=== PATIENT | male | born 1950 | race Caucasian/White ===

== ENCOUNTER 2019-06-21 05:36 | Inpatient (IN) | payer MEDICARE ==
[~2019-06-21] VITALS: Ht 182.9 cm; Wt 62.2 kg
[2019-06-21 07:00] LABS: Urine Amorphous Crystal MOD /hpf (None Seen); Urine Bacteria NONE SEEN /hpf (None Seen); Urine Blood Negative /uL (Negative); Urine Specific Gravity 1.019 (1.001-1.035); Urine WBC 1 /hpf (0 - 3)
[2019-06-21 07:19] LABS: Basophils # (auto) 0 10 ^3/uL (0-0.2); Basophils % (auto) 0.3 % (0.0-2.0); Eosinophils # (auto) 0.1 10 ^3/uL (0-0.8); Eosinophils % (auto) 1.3 % (0.0-7.0); Hematocrit 38.7 % (41.0-53.0); Hemoglobin 13.1 g/dL (13.5-17.5); Lymphocytes # (auto) 0.7 10 ^3/uL (0.4-5.4); Lymphocytes % (auto) 9.2 % (10.0-50.0); Mean Corpuscular Hemoglobin 29.8 pg (28.0-32.0); Mean Corpuscular Hgb Conc. 33.9 g/dL (32.0-36.0); Mean Corpuscular Volume 87.8 fL (80.0-100.0); Monocytes # (auto) 1.1 10 ^3/uL (0-1.3); Monocytes % (auto) 14.8 % (0.0-12.0); Neutrophils # (auto) 5.7 10 ^3/uL (1.6-8.6); Neutrophils % (auto) 74.4 % (37.0-80.0); Nucleated Red Blood Cells % 0.1 %; Platelet Count (auto) 216 10^3/uL (140-450); Red Blood Cells 4.41 10^6/uL (4.5-5.90); Red Cell Distribution Width 16.8 % (11.8-14.3); White Blood Cell 7.7 10^3/uL (4.4-10.8)
[2019-06-21 07:20] LABS: Alcohol, Urine < 3.0 mg/dL (0-5); Amphetamine Screen, Urine NEGATIVE (NEGATIVE); Barbiturate Scree,Urine POSITIVE (NEGATIVE); Benzodiazephine Screen, Urine NEGATIVE (NEGATIVE); Cannabinoid Screen, Urine NEGATIVE (NEGATIVE); Cocaine Screen, Urine NEGATIVE (NEGATIVE); Opiate Scree,Urine NEGATIVE (NEGATIVE); Phencyclidine Screen, Urine NEGATIVE (NEGATIVE)
[2019-06-21 07:34] LABS: INR 1.09 (0.9-1.15); Partial Thromboplastin Time 25.6 sec (23.64-32.05)
[2019-06-21 07:36] LABS: Alanine Aminotransferase 32 U/L (16-61); Albumin 3.4 g/dL (3.4-5.0); Anion Gap 7 (5-15); Aspartate Aminotransferase 40 U/L (15-37); Blood Urea Nitrogen 31 mg/dL (7-18); Carbon Dioxide 22 mmol/L (21-32); Chloride 105 mmol/L (98-107); Glucose 220 mg/dL (74-106); Magnesium 2.1 mg/dL (1.6-2.6); Potassium 4.9 mmol/L (3.5-5.1); Sodium 134 mmol/L (136-145)
[2019-06-21 07:41] LABS: Alkaline Phosphatase 162 U/L (45-117); BUN/Creatinine Ratio 37.3; Bilirubin, Total 1.1 mg/dL (0.2-1.0); GFR African American 118 mL/min; GFR Non-African American 97 mL/min; Total Protein 7.3 g/dL (6.4-8.2)
[2019-06-21] MEDS ORDERED: NITROGLYCERIN 0.4 MG SL TAB SL PRN (09:00)
[2019-06-21] MEDS ORDERED: DEXTROSE (50%) 50ML SYRG IV PRN (09:00)
[2019-06-21] MEDS ORDERED: ACETAMINOPHEN 500 MG TAB PO PRN (09:00)
[2019-06-21] MEDS ORDERED: MORPHINE SULF INJ 2 MG/ML SYRINGE 1ML IV PRN (09:00)
[2019-06-21] MEDS: SODIUM CHLORIDE 0.9% 1,000 ML IV SCH ×2 (09:06→22:17)
[2019-06-21] MEDS ORDERED: FAMOTIDINE (10MG/ML) 2ML VL IV SCH (10:00)
[2019-06-21] MEDS: PANTOPRAZOLE 40 MG/10 ML VIAL INJ IV SCH (10:07)
[2019-06-21] MEDS: ACCU-CHEK COMFORT CURVE STRIP VI SCH ×3 (11:14→21:47)
[2019-06-21] MEDS: InsuLIN REG 1unit/0.01ml Soln (100units/ml) SC SCH ×3 (11:15→22:06)
--- NOTE | 2019-06-21 14:11 | NUR ---
Pt Arrived on Unit Pt arrived on unit from ED via stretcher. Pt is a/ox3-4; mild periods of confusion noted. Safety measures maintained with call light within reach, bed in lowest position and side rails up. Will continue to monitor for changes q1hr and prn.
[2019-06-21 15:18] VITALS: BP 151/78
[2019-06-21 16:46] VITALS: BP 151/78
[2019-06-21] MEDS ORDERED: INSLANTI SC (17:51)
[2019-06-21] MEDS ORDERED: INSLISPI SC (17:51)
[2019-06-21] MEDS ORDERED: ASPI-231 PO (17:51)
--- NOTE | 2019-06-21 19:30 | NUR ---
Opening Shift Note Assumed care of patient, awake and alert (patient is alert and oriented X3). No S/S of distress/SOB or pain. Sitter at bedside. Instructed on POC and to call for assist PRN, will continue to monitor for changes Q1hr and PRN.
[2019-06-21] MEDS ORDERED: MEGE40TA15 PO (21:19)
[2019-06-21] MEDS ORDERED: PRIM50TA5 PO (21:19)
[2019-06-21 22:26] VITALS: BP 145/85
[2019-06-22 04:21] LABS: Folate (Folic Acid) 17.22 ng/mL (5.38-24)
[2019-06-22 05:09] VITALS: BP 128/77
[2019-06-22 05:43] LABS: Hematocrit 38.5 % (41.0-53.0); Mean Corpuscular Hemoglobin 29.8 pg (28.0-32.0); Mean Corpuscular Hgb Conc. 33.8 g/dL (32.0-36.0); Mean Corpuscular Volume 88.2 fL (80.0-100.0); Platelet Count (auto) 227 10^3/uL (140-450); Red Blood Cells 4.37 10^6/uL (4.5-5.90); Red Cell Distribution Width 16.5 % (11.8-14.3); White Blood Cell 7.1 10^3/uL (4.4-10.8)
[2019-06-22 05:49] LABS: Band Neutrophils % (manual) 0; Basophils % (manual) 0 (0.0-2.0); Blast Cells 0; Metamyelocytes % 0; Myelocytes % 0; Promyelocytes % 0; Reactive Lymphocytes 0
[2019-06-22 06:01] LABS: Albumin 3.2 g/dL (3.4-5.0); Calcium 8.8 mg/dL (8.5-10.1); Potassium 3.6 mmol/L (3.5-5.1)
[2019-06-22 06:06] LABS: BUN/Creatinine Ratio 39.7; Bilirubin, Total 1.5 mg/dL (0.2-1.0); Total Protein 7.1 g/dL (6.4-8.2)
[2019-06-22] MEDS: ACCU-CHEK COMFORT CURVE STRIP VI SCH ×4 (06:41→21:37)
[2019-06-22] MEDS: InsuLIN REG 1unit/0.01ml Soln (100units/ml) SC SCH ×4 (06:48→21:41)
[2019-06-22 07:16] LABS: Eosinophils % (manual) 2 (0-7); Lymphocytes % (manual) 14 (10.0-50.0); Monocytes % (manual) 19 (0-12)
--- NOTE | 2019-06-22 07:25 | NUR ---
Opening Shift Note Assumed care of patient from noc shift rn, awake and alert. No S/S of distress/SOB, denies pain at this time. Instructed on POC and to call for assist PRN, will continue to monitor for changes Q1hr and PRN. Sitter at bedside
[2019-06-22 08:00] VITALS: BP 156/75
[2019-06-22 08:51] VITALS: BP 156/75
[2019-06-22] MEDS: PANTOPRAZOLE 40 MG/10 ML VIAL INJ IV SCH (10:00)
[2019-06-22] MEDS: SODIUM CHLORIDE 0.9% 1,000 ML IV SCH (12:02)
--- NOTE | 2019-06-22 12:32 | NUR ---
NUTRITION ASSESSMENT NOTES Please refer to link notes of nutrition screen form filed under the intervention section of the plan of care for further details. Est. Energy Needs: 2842-9237 kcal (30-35 kcal/kg BW). Est. Protein Needs: 81-97 gms/day (1.0-1.2 gms/kg IBW). Will continue to monitor pertinent labs and reassess nutrient need prn Addendum: 06/22/19 at [address] Amended: Links added.
[2019-06-22 13:00] VITALS: BP 148/90
[2019-06-22] MEDS ORDERED: amLODIPine BESYLATE 5 MG TAB PO ONE (15:45)
[2019-06-22 17:00] VITALS: BP 148/88
--- NOTE | 2019-06-22 19:30 | NUR ---
OPENING NOTE REPORT RECEIVED FROM DAY SHIFT RN PATIENT IS A/OX3 RESTING COMFORTABLY IN BED. SITTER AT BEDSIDE FOR PATIENT SAFETY. PATIENT IS ON ROOM AIR, NO SOB OR DISTRESS NOTED. PHYSICAL ASSESSMENT DONE-SEE INTERVENTIONS. [place] DRAINING TO GRAVITY. PATIENT ABLE TO TURN/REPOSITION SELF IN BED. IV NOTED TO LEFT FOREARM, INTACT AND PATENT. POC DISCUSSED WITH PATIENT. ALL QUESTIONS ANSWERED. CALL LIGHT WITHIN REACH.
[2019-06-22 21:53] VITALS: BP 146/83
[2019-06-23 05:00] VITALS: BP 127/73
[2019-06-23] MEDS: InsuLIN REG 1unit/0.01ml Soln (100units/ml) SC SCH ×4 (06:35→23:47)
[2019-06-23] MEDS: ACCU-CHEK COMFORT CURVE STRIP VI SCH ×4 (06:36→23:47)
--- NOTE | 2019-06-23 07:06 | NUR ---
CLOSING PATIENT RESTING COMFORTABLY IN BED. NO S/S OF DISTRESS SITTER AT BEDSIDE FOR SAFETY WILL ENDORSE CARE TO AM SHIFT RN
[2019-06-23 08:00] VITALS: BP 148/88
--- NOTE | 2019-06-23 08:00 | NUR ---
ASSESSMENT NOTE PT IS ALERT ORIENTED X4, AT THIS TIME, TO TIME, PLACE AND PERSON, ABLE TO SELF REPOSITION AND VERBALIS HIS DEMANDS, [place] CATHETER TO GRAVITY, PAIN 0/10, SITTER AT BED SIDE AT ALL TIMES, CALL LIGHT WITHIN REACH
[2019-06-23 08:38] VITALS: BP 129/65
[2019-06-23] MEDS: PANTOPRAZOLE 40 MG/10 ML VIAL INJ IV SCH (09:42)
[2019-06-23] MEDS: amLODIPine BESYLATE 5 MG TAB PO SCH (09:43)
--- NOTE | 2019-06-23 10:30 | NUR ---
PHYSICAL THERAPY AT BED SIDE TO AMBULATE PT
[2019-06-23] MEDS ORDERED: DEXTROSE (50%) 50ML SYRG IV PRN (12:30)
[2019-06-23] MEDS ORDERED: INSULIN LANTUS (GLARGINE) 1 /0.01ml (100units/ml) SC ONE (12:30)
--- NOTE | 2019-06-23 14:00 | NUR ---
BM PT HAS LARGE BM IN BSC, KEPT CLEAN AND DRY
[2019-06-23] MEDS: PRIMIDONE 50 MG TAB PO SCH ×2 (14:52→21:24)
[2019-06-23 17:26] VITALS: BP 132/71
--- NOTE | 2019-06-23 18:06 | NUR ---
PT CONTINUE STABLE, CONTINUE MONITORING
--- NOTE | 2019-06-23 18:07 | NUR ---
PT CONTINUE STABLE, CONTINUE MONITORING
--- NOTE | 2019-06-23 19:35 | NUR ---
OPENING NOTE REPORT RECEIVED FROM DAY SHIFT RN PATIENT IS A/OX3, SITTING UP IN BED. NO S/S OF DISTRESS. BARRAGAN IN PLACE DRAINING TO GRAVITY. PHYSICAL ASSESSMENT DONE-SEE INTERVENTIONS. POC DISCUSSED AND ALL QUESTIONS ANSWERED. WILL MONITOR Q1H PRN THROUGHOUT SHIFT. CALL LIGHT WITHIN REACH.
[2019-06-23 22:00] VITALS: BP 122/66
--- NOTE | 2019-06-23 23:48 | NUR ---
MED REFUSAL PATIENT REFUSING ORDERED INSULIN PER SLIDING SCALE FOR HIS BLOOD SUGAR OF 187 PATIENT STATES, "I GOT MY LANTUS EARLIER TODAY, IF I GET THIS OTHER INSULIN IT WILL DROP ME TOO LOW BY MORNING". PATIENT REFUSED ORDERED RAPID ACTING INSULIN AT THIS TIME
[2019-06-24 05:28] VITALS: BP 113/64
[2019-06-24] MEDS: InsuLIN REG 1unit/0.01ml Soln (100units/ml) SC SCH ×2 (06:00→12:00)
[2019-06-24] MEDS: PRIMIDONE 50 MG TAB PO SCH (06:33)
[2019-06-24] MEDS: ACCU-CHEK COMFORT CURVE STRIP VI SCH ×2 (06:35→12:00)
--- NOTE | 2019-06-24 06:36 | NUR ---
BLOOD SUGAR 71 PATIENT STATES HE FEELS "FINE" BUT WOULD LIKE A SNACK FRUIT AT BEDSIDE THAT PATIENT SAVED FROM DINNER TRAY PROVIDED. PATIENT EATING FRUIT AND A PIECE OF BREAD WILL RECHECK BLOOD GLUCOSE IN 15 MINUTES
--- NOTE | 2019-06-24 06:58 | NUR ---
BLOOD SUGAR RECHECKED AND NOW AT 131 LANTUS GIVEN ORDERED. PATIENT TOLERATED WELL
[2019-06-24] MEDS ORDERED: INSULIN LANTUS (GLARGINE) 1 /0.01ml (100units/ml) SC SCH (07:00)
--- NOTE | 2019-06-24 07:06 | NUR ---
CLOSING PATIENT RESTING COMFORTABLY IN BED. NO S/S OF DISTRESS WILL ENDORSE CARE TO AM SHIFT RN
[2019-06-24 08:00] VITALS: BP 129/65
[2019-06-24 09:00] VITALS: BP 129/76
--- NOTE | 2019-06-24 09:00 | NUR ---
BARR[place]AN CATHETER CONTINUE LEAKING, PT REQUESTED TO GET IT REMOVED
[2019-06-24] MEDS: PANTOPRAZOLE 40 MG/10 ML VIAL INJ IV SCH (09:20)
[2019-06-24] MEDS: amLODIPine BESYLATE 5 MG TAB PO SCH (09:21)
--- NOTE | 2019-06-24 10:00 | NUR ---
Coleman catheter dc'd Order to discontinue coleman catheter. Coleman dc'd with clean technique following deflation of balloon. Patient tolerated well with no complaints of pain. Continue care.
[2019-06-24 11:03] VITALS: BP 129/76
--- NOTE | 2019-06-24 11:58 | NUR ---
CALLED PATIENT'S MADE AWARE THAT HER IS GOING HOME WITH NEW RX OF NORVASC, ONE TAB DAILY, RESUME HOME MEDS, AND FOLLOW UP WITH THE PRIMARY MD IN ONE WEEK, VERBALIS UNDERSTANDING
--- NOTE | 2019-06-24 13:10 | NUR ---
Discharge instructions given as ordered. Encourage to follow up with PMD as instructed. All questions and concerns addressed. Patient verbalized understanding. Medication reconciliation form completed and copy given to patient. IV removed with catheter intact, pressure dressing applied, coleman catheter removed. Telemetry unit returned to ICU. Patient taken to vehicle via wheelchair with all personal belongings, accompanied by staff . No distress noted at time of departure.
== END 2019-06-24 13:10 | disposition home or self-care (01) | DRG 640 ==
LOC: EDBD 05:36 → ER 05:36 → TELE 05:37 → TELE-CENTR 14:12
PROVIDERS: ADMIT Nurse Practitioner Acute Care; ATTEND Internal Medicine Nephrology
DX: E86.0 Dehydration (principal); G93.41 Metabolic encephalopathy; R64 Cachexia; Z68.1 Body mass index [BMI] 19.9 or less, adult; E44.1 Mild protein-calorie malnutrition; I10 Essential (primary) hypertension; I45.81 Long QT syndrome; Z85.07 Personal history of malignant neoplasm of pancreas
CPT/HCPCS: 36415; 51702; 70450; 71045; 80053; 80307; 81001; 82306; 82607; 82746; 82962; 83735; 84425; 84443; 84484; 85007; 85025; 85027; 85610; 85730; 87040; 93005; 96361; 96374; 97116; 97163; 97530; C9113; G0378; J1815

== ENCOUNTER 2019-10-17 04:43 | Inpatient (IN) | payer MEDICARE, OTHER ==
[~2019-10-17] VITALS: Ht 182.9 cm; Wt 61.0 kg
[~2019-10-17 04:43] MED LIST: ASPI-231 PO; INSLANTI SC; INSLISPI SC; MEGE40TA15 PO; PRIM50TA5 PO
[2019-10-17 06:01] LABS: Hematocrit 30.3 % (41.0-53.0); Hemoglobin 10.2 g/dL (13.5-17.5); Mean Corpuscular Hemoglobin 27.1 pg (28.0-32.0); Mean Corpuscular Hgb Conc. 33.7 g/dL (32.0-36.0); Mean Corpuscular Volume 80.3 fL (80.0-100.0); Platelet Count (auto) 162 10^3/uL (140-450); Red Blood Cells 3.77 10^6/uL (4.5-5.90); Red Cell Distribution Width 16.5 % (11.8-14.3); White Blood Cell 5.3 10^3/uL (4.4-10.8)
[2019-10-17 06:14] LABS: Band Neutrophils % (manual) 0; Basophils % (manual) 0 (0.0-2.0); Blast Cells 0; Metamyelocytes % 0; Myelocytes % 0; Promyelocytes % 0; Reactive Lymphocytes 0
[2019-10-17 06:21] LABS: INR 1.06 (0.9-1.15); Partial Thromboplastin Time 24.1 sec (23.0-31.2)
[2019-10-17 06:28] LABS: Anion Gap 4 (5-15); Blood Urea Nitrogen 26 mg/dL (7-18); Calcium 8.3 mg/dL (8.5-10.1); Carbon Dioxide 27 mmol/L (21-32); Chloride 101 mmol/L (98-107); Glucose 151 mg/dL (74-106); Potassium 4.3 mmol/L (3.5-5.1); Sodium 132 mmol/L (136-145)
[2019-10-17 06:33] LABS: Alanine Aminotransferase 57 U/L (16-61); Alkaline Phosphatase 120 U/L (45-117); Aspartate Aminotransferase 60 U/L (15-37); BUN/Creatinine Ratio 31.7; Bilirubin, Total 0.5 mg/dL (0.2-1.0); GFR African American 119 mL/min; GFR Non-African American 98 mL/min; Total Protein 6.2 g/dL (6.4-8.2)
[2019-10-17 08:00] LABS: Urine Bacteria NONE SEEN /hpf (None Seen); Urine Blood Negative /uL (Negative); Urine Specific Gravity 1.013 (1.001-1.035); Urine WBC 19 /hpf (0 - 3)
[2019-10-17] MEDS ORDERED: cefTRIAXone 1GM/50ML D5W 50 ML IV ONE (09:15)
[2019-10-17] MEDS ORDERED: NITROGLYCERIN 0.4 MG SL TAB SL PRN ×2 (10:00→14:00)
[2019-10-17] MEDS ORDERED: MORPHINE SULF INJ 2 MG/ML SYRINGE 1ML IV PRN ×2 (10:00→14:00)
[2019-10-17 11:00] LABS: Eosinophils % (manual) 3 (0-7); Lymphocytes % (manual) 11 (10.0-50.0); Monocytes % (manual) 12 (0-12)
[2019-10-17] MEDS ORDERED: ONDANSETRON HCL 4 MG/2 ML VIAL IV PRN (14:00)
[2019-10-17] MEDS ORDERED: LORazepam 0.5 MG TAB PO PRN (14:00)
[2019-10-17] MEDS ORDERED: ALUM & MAG HYDROX-SIMETH LIQ(MAALOX) 30 ML PO PRN (14:00)
[2019-10-17] MEDS ORDERED: DOCUSATE SOD 100 MG CAP PO PRN (14:00)
[2019-10-17] MEDS ORDERED: ACETAMINOPHEN 325 MG TAB PO PRN (14:00)
[2019-10-17] MEDS ORDERED: DEXTROSE (50%) 50ML SYRG IV PRN (14:00)
[2019-10-17] MEDS: MORPHINE SULF INJ 2 MG/ML SYRINGE 1ML IV PRN ×2 (14:14→21:08)
[2019-10-17] MEDS ORDERED: ASPirin 81 mg TAB PO ONE (14:15)
[2019-10-17] MEDS: SODIUM CHLORIDE 0.9% 1,000 ML IV SCH (14:27)
[2019-10-17 14:45] LABS: Alcohol, Urine < 3.0 mg/dL (0-10); Amphetamine Screen, Urine NEGATIVE (NEGATIVE); Barbiturate Scree,Urine POSITIVE (NEGATIVE); Benzodiazephine Screen, Urine NEGATIVE (NEGATIVE); Cannabinoid Screen, Urine POSITIVE (NEGATIVE); Cocaine Screen, Urine NEGATIVE (NEGATIVE); Opiate Scree,Urine NEGATIVE (NEGATIVE); Phencyclidine Screen, Urine NEGATIVE (NEGATIVE)
[2019-10-17 14:58] LABS: Cholesterol 182 mg/dL (< 200)
[2019-10-17 15:01] LABS: HDL Cholesterol 60 mg/dL (40-59); LDL Cholesterol 116 mg/dL (< 100); Triglycerides 79 mg/dL (< 150)
[2019-10-17] MEDS: ACCU-CHEK COMFORT CURVE STRIP VI SCH ×2 (17:40→21:08)
[2019-10-17] MEDS: InsuLIN REG 1unit/0.01ml Soln (100units/ml) SC SCH (17:40)
[2019-10-17] MEDS: FUROSEMIDE 20 MG/2 ML VIAL IV SCH (17:43)
[2019-10-17] MEDS: Glucerna Carbsteady SHAKE Stawberry 8oz PO SCH (17:44)
[2019-10-17] MEDS: TAMSULOSIN HYDROCHLORIDE 0.4 MG CAP PO SCH (17:44)
[2019-10-17] MEDS: PRIMIDONE 50 MG TAB PO SCH (17:44)
[2019-10-17 20:05] VITALS: BP 111/54
[2019-10-17 21:35] VITALS: BP 111/59
[2019-10-17] MEDS ORDERED: ATORVASTATIN 20 MG TAB PO SCH (22:00)
[2019-10-17] MEDS ORDERED: InsuLIN REG 1unit/0.01ml Soln (100units/ml) SC SCH (22:00)
[2019-10-18] MEDS: SODIUM CHLORIDE 0.9% 1,000 ML IV SCH ×2 (03:19→16:39)
[2019-10-18 04:49] VITALS: BP 100/51
[2019-10-18] MEDS: FUROSEMIDE 20 MG/2 ML VIAL IV SCH ×2 (06:00→18:00)
[2019-10-18] MEDS: InsuLIN REG 1unit/0.01ml Soln (100units/ml) SC SCH ×3 (06:12→17:00)
[2019-10-18] MEDS: ACCU-CHEK COMFORT CURVE STRIP VI SCH ×3 (06:13→17:00)
[2019-10-18] MEDS: HYDROcodone-ACET 5/325MG TAB PO PRN ×2 (06:26→10:47)
[2019-10-18 06:40] LABS: Red Cell Distribution Width 16.8 % (11.8-14.3); White Blood Cell 4.3 10^3/uL (4.4-10.8)
[2019-10-18 06:43] LABS: Hematocrit 30.6 % (41.0-53.0); Hemoglobin 10.3 g/dL (13.5-17.5); Mean Corpuscular Hemoglobin 27.2 pg (28.0-32.0); Mean Corpuscular Hgb Conc. 33.6 g/dL (32.0-36.0); Platelet Count (auto) 142 10^3/uL (140-450); Red Blood Cells 3.78 10^6/uL (4.5-5.90)
[2019-10-18 06:56] LABS: INR 1.04 (0.9-1.15); Partial Thromboplastin Time 26.3 sec (23.0-31.2)
[2019-10-18 06:58] LABS: Band Neutrophils % (manual) 0; Basophils % (manual) 0 (0.0-2.0); Blast Cells 0; Myelocytes % 0; Promyelocytes % 0; Reactive Lymphocytes 0
[2019-10-18 07:01] LABS: Potassium 3.9 mmol/L (3.5-5.1)
[2019-10-18 07:08] LABS: Albumin 2.9 g/dL (3.4-5.0); BUN/Creatinine Ratio 30.4; Bilirubin, Total 0.6 mg/dL (0.2-1.0); Calcium 7.8 mg/dL (8.5-10.1); Magnesium 1.8 mg/dL (1.6-2.6); Phosphorus 2.6 mg/dL (2.5-4.90); Total Protein 5.8 g/dL (6.4-8.2)
[2019-10-18 08:00] VITALS: BP 103/58
[2019-10-18] MEDS: Glucerna Carbsteady SHAKE Stawberry 8oz PO SCH ×2 (08:00→12:00)
[2019-10-18 08:04] LABS: Eosinophils % (manual) 2 (0-7); Lymphocytes % (manual) 13 (10.0-50.0); Metamyelocytes % 1; Monocytes % (manual) 14 (0-12)
[2019-10-18 08:57] VITALS: BP 103/58
[2019-10-18] MEDS ORDERED: cefTRIAXone 1GM/50ML D5W 50 ML IV SCH (09:00)
[2019-10-18] MEDS ORDERED: SPIRONOLACTONE 25 MG TAB PO SCH (10:00)
[2019-10-18] MEDS ORDERED: ASPirin 81 mg TAB PO SCH (10:00)
[2019-10-18] MEDS: PRIMIDONE 50 MG TAB PO SCH ×2 (11:50→12:00)
[2019-10-18 12:00] VITALS: BP 134/80
[2019-10-18] MEDS ORDERED: Glucerna Carbsteady SHAKE Vanilla 8oz PO SCH (12:00)
[2019-10-18 12:40] LABS: Hepatitis A Ab IgM Negative; Hepatitis B Core IgM Negative; Hepatitis B Surface Antigen Negative (Negative)
[2019-10-18 12:41] LABS: Hepatitis C Antibody Negative (Negative)
[2019-10-18] MEDS: TAMSULOSIN HYDROCHLORIDE 0.4 MG CAP PO SCH (18:00)
== END 2019-10-18 19:27 | disposition home health service (06) | DRG 536 ==
LOC: EDBD 04:43 → ER 04:43 → TELE 04:44 → TELE-CENTR 20:27
PROVIDERS: ADMIT Hospitalist; ATTEND Internal Medicine
DX: S32.312A Displaced avulsion fracture of left ilium, initial encounter for closed fracture (principal); N39.0 Urinary tract infection, site not specified; E22.2 Syndrome of inappropriate secretion of antidiuretic hormone; E44.0 Moderate protein-calorie malnutrition; K76.6 Portal hypertension; I50.32 Chronic diastolic (congestive) heart failure; E86.0 Dehydration; K70.9 Alcoholic liver disease, unspecified; F03.90 Unspecified dementia, unspecified severity, without behavioral disturbance, psychotic disturbance, mood disturbance, and anxiety; M17.0 Bilateral primary osteoarthritis of knee; K74.60 Unspecified cirrhosis of liver; C61 Malignant neoplasm of prostate; N32.3 Diverticulum of bladder; D63.8 Anemia in other chronic diseases classified elsewhere; I11.0 Hypertensive heart disease with heart failure; N40.0 Benign prostatic hyperplasia without lower urinary tract symptoms; Z85.07 Personal history of malignant neoplasm of pancreas; Z86.73 Personal history of transient ischemic attack (TIA), and cerebral infarction without residual deficits; Z79.82 Long term (current) use of aspirin; Z82.49 Family history of ischemic heart disease and other diseases of the circulatory system; Z79.4 Long term (current) use of insulin; Z85.46 Personal history of malignant neoplasm of prostate; Y92.015 Private garage of single-family (private) house as the place of occurrence of the external cause; W01.0XXA Fall on same level from slipping, tripping and stumbling without subsequent striking against object, initial encounter; Y93.89 Activity, other specified; Y99.8 Other external cause status
CPT/HCPCS: 36415; 72192; 73502; 76700; 76856; 80053; 80061; 80074; 80307; 81001; 82962; 83036; 83735; 83880; 84100; 84443; 84484; 85007; 85027; 85610; 85730; 87040; 87086; 93005; G0378; J0696; J1815; J2405

== ENCOUNTER → 2020-01-27 | Outpatient (CLI) | payer MEDICARE, OTHER ==
[2020-01-27 10:20] LABS: INR 1.02 (0.9-1.15); Partial Thromboplastin Time 24.5 sec (23.0-31.2)
--- NOTE | 2020-01-27 11:20 | NUR ---
RECEIVED PATIENT LAB RESULTS AND REVIEWED WITH DR WERNER. ABD U.S. DONE. DR WERNER AT BEDSIDE - REVEALED NO FLUID NOTED TO REMOVE. MD INFORMED PATIENT OF SAME, ENGINEERING ASSOCIATE INFORMED PATIENT'S OF NO NEED FOR PARACENTESIS - VERBALIZES UNDERSTANDING.
== END | disposition home or self-care (01) ==
LOC: US 08:52
DX: K70.30 Alcoholic cirrhosis of liver without ascites (principal); R18.8 Other ascites
CPT/HCPCS: 36415; 76700; 85610; 85730

== ENCOUNTER → 2020-09-13 | Outpatient (CLI) | payer MEDICARE, OTHER ==
[~2020-09-13] MED LIST changes: -MEGE40TA15 PO; +MEGE40TA4 PO
[2020-09-13 11:43] LABS: Basophils # (auto) 0 10 ^3/uL (0-0.2); Basophils % (auto) 0.6 % (0.0-2.0); Eosinophils # (auto) 0.1 10 ^3/uL (0-0.8); Eosinophils % (auto) 0.8 % (0.0-7.0); Hematocrit 33.7 % (41.0-53.0); Hemoglobin 11.5 g/dL (13.5-17.5); Lymphocytes # (auto) 0.7 10 ^3/uL (0.4-5.4); Lymphocytes % (auto) 8.9 % (10.0-50.0); Mean Corpuscular Hemoglobin 27.5 pg (28.0-32.0); Mean Corpuscular Hgb Conc. 34.1 g/dL (32.0-36.0); Mean Corpuscular Volume 80.7 fL (80.0-100.0); Monocytes % (auto) 12.7 % (0.0-12.0); Neutrophils # (auto) 5.9 10 ^3/uL (1.6-8.6); Platelet Count (auto) 192 10^3/uL (140-450); Red Blood Cells 4.18 10^6/uL (4.5-5.90); Red Cell Distribution Width 17.4 % (11.8-14.3); White Blood Cell 7.7 10^3/uL (4.4-10.8)
[2020-09-13 11:55] LABS: Urine Bacteria NONE SEEN /hpf (None Seen); Urine Blood 1+ /uL (Negative); Urine WBC 165 /hpf (0 - 3)
[2020-09-13 12:26] LABS: Albumin 3.4 g/dL (3.4-5.0); BUN/Creatinine Ratio 38.2; Calcium 9.1 mg/dL (8.5-10.1); Potassium 3.9 mmol/L (3.5-5.1)
[2020-09-13 12:28] LABS: Bilirubin, Total 0.7 mg/dL (0.2-1.0); Total Protein 7.1 g/dL (6.4-8.2)
== END | disposition home or self-care (01) ==
LOC: LAB 11:19
PROVIDERS: ATTEND Nurse Practitioner
DX: I10 Essential (primary) hypertension (principal); E78.5 Hyperlipidemia, unspecified
CPT/HCPCS: 36415; 80053; 81001; 85025; 85049

== ENCOUNTER 2021-05-30 15:29 | Inpatient (IN) | payer BC, OTHER ==
[~2021-05-30] VITALS: Ht 182.9 cm; Wt 61.2 kg
[~2021-05-30 15:29] MED LIST changes: -ASPI-231 PO; +ASPI1TAB20 PO
[2021-05-30 16:55] LABS: Basophils # (auto) 0 10 ^3/uL (0-0.2); Basophils % (auto) 0.5 % (0.0-2.0); Eosinophils # (auto) 0 10 ^3/uL (0-0.8); Eosinophils % (auto) 0.8 % (0.0-7.0); Hematocrit 38.9 % (41.0-53.0); Hemoglobin 12.8 g/dL (13.5-17.5); Lymphocytes # (auto) 0.7 10 ^3/uL (0.4-5.4); Lymphocytes % (auto) 10.9 % (10.0-50.0); Mean Corpuscular Hemoglobin 25.6 pg (28.0-32.0); Mean Corpuscular Hgb Conc. 32.9 g/dL (32.0-36.0); Mean Corpuscular Volume 77.7 fL (80.0-100.0); Monocytes # (auto) 0.7 10 ^3/uL (0-1.3); Monocytes % (auto) 12.4 % (0.0-12.0); Neutrophils # (auto) 4.6 10 ^3/uL (1.6-8.6); Neutrophils % (auto) 75.4 % (37.0-80.0); Red Blood Cells 5.01 10^6/uL (4.5-5.90); Red Cell Distribution Width 19.6 % (11.8-14.3)
[2021-05-30 17:10] LABS: Albumin 3.4 g/dL (3.4-5.0); Calcium 9.7 mg/dL (8.5-10.1); Potassium 4.2 mmol/L (3.5-5.1)
[2021-05-30 17:14] LABS: BUN/Creatinine Ratio 28.6; Bilirubin, Total 0.6 mg/dL (0.2-1.0)
[2021-05-30 17:40] LABS: Urine Bacteria NONE SEEN /hpf (None Seen); Urine Blood 1+ /uL (Negative); Urine Specific Gravity 1.011 (1.001-1.035); Urine WBC 37 /hpf (0 - 3)
[2021-05-30] MEDS ORDERED: SODIUM CHLORIDE 0.9% 1,000 ML IV ONE (18:00)
[2021-05-30] MEDS ORDERED: SODIUM CHLORIDE 0.9% 500 ML IVB ONE (18:00)
[2021-05-30] MEDS ORDERED: SULFAMETH-TRIMETH 80/16MG-ML 15 ML in D5W 5% 500 ML IV ONE (18:15)
[2021-05-30] MEDS ORDERED: ONDANSETRON HCL 4 MG/2 ML VIAL IV PRN (18:30)
[2021-05-30] MEDS ORDERED: PATIENTS OWN MEDICATION (ertapenem 1 GRAMS) IV SCH (18:30)
[2021-05-30] MEDS ORDERED: ACETAMINOPHEN 325 MG TAB PO PRN (18:30)
[2021-05-30] MEDS ORDERED: DEXTROSE (50%) 50ML SYRG IV PRN (18:30)
[2021-05-30] MEDS ORDERED: ERTAPENEM SOD INJ 1 GM in SODIUM CHL 0.9% 50 ML IV SCH (20:00)
[2021-05-30] MEDS: ACCU-CHEK COMFORT CURVE STRIP VI SCH (21:59)
[2021-05-30] MEDS: InsuLIN REG 1unit/0.01ml Soln (100units/ml) SC SCH (22:04)
[2021-05-30 23:00] VITALS: BP 111/58
[2021-05-31 05:00] VITALS: BP 114/60
[2021-05-31 05:40] LABS: Basophils # (auto) 0 10 ^3/uL (0-0.2); Basophils % (auto) 0.7 % (0.0-2.0); Eosinophils # (auto) 0.1 10 ^3/uL (0-0.8); Eosinophils % (auto) 2.5 % (0.0-7.0); Hematocrit 33.9 % (41.0-53.0); Hemoglobin 11.3 g/dL (13.5-17.5); Lymphocytes % (auto) 22.4 % (10.0-50.0); Mean Corpuscular Hemoglobin 25.8 pg (28.0-32.0); Mean Corpuscular Hgb Conc. 33.4 g/dL (32.0-36.0); Mean Corpuscular Volume 77.3 fL (80.0-100.0); Monocytes # (auto) 0.7 10 ^3/uL (0-1.3); Monocytes % (auto) 16.2 % (0.0-12.0); Neutrophils # (auto) 2.5 10 ^3/uL (1.6-8.6); Neutrophils % (auto) 58.2 % (37.0-80.0); Nucleated Red Blood Cells % 0.1 %; Red Blood Cells 4.39 10^6/uL (4.5-5.90); Red Cell Distribution Width 19.2 % (11.8-14.3); White Blood Cell 4.3 10^3/uL (4.4-10.8)
[2021-05-31 06:06] LABS: BUN/Creatinine Ratio 39.2; Calcium 8.6 mg/dL (8.5-10.1); Potassium 3.5 mmol/L (3.5-5.1)
[2021-05-31] MEDS: ACCU-CHEK COMFORT CURVE STRIP VI SCH ×3 (06:59→17:00)
[2021-05-31] MEDS: InsuLIN REG 1unit/0.01ml Soln (100units/ml) SC SCH ×3 (07:00→17:00)
[2021-05-31] MEDS ORDERED: ASPirin 81 mg TAB PO SCH (10:00)
[2021-05-31] MEDS ORDERED: MEGESTROL ACETATE 20 MG TAB PO SCH (10:00)
[2021-05-31] MEDS ORDERED: ENOXAPARIN SOD 40 MG/0.4 ML SYRINGE SC SCH (10:00)
[2021-05-31] MEDS ORDERED: PANTOPRAZOLE 40 MG TAB PO SCH (10:00)
[2021-05-31 10:50] LABS: Cholesterol 201 mg/dL (< 200); HDL Cholesterol 63 mg/dL (40-59); LDL Cholesterol 118 mg/dL (< 100); Triglycerides 63 mg/dL (< 150)
[2021-05-31] MEDS ORDERED: SPIR50TA2 PO (11:52)
[2021-05-31] MEDS ORDERED: FURO40TA4 PO (11:52)
[2021-05-31] MEDS ORDERED: TAM04C PO (11:52)
[2021-05-31] MEDS ORDERED: LEVO500T31 PO (13:49)
[2021-05-31 14:21] VITALS: BP 118/62
[2021-05-31] MEDS ORDERED: IOHEXOL 300 MG/ML 100ML BOTTLE IJ ONE (16:18)
[2021-05-31] MEDS ORDERED: TAMSULOSIN HYDROCHLORIDE 0.4 MG CAP PO SCH (18:00)
[2021-05-31] MEDS ORDERED: cefTRIAXone 1GM/50ML D5W 50 ML IV SCH (20:00)
== END 2021-05-31 18:00 | disposition home or self-care (01) | DRG 690 ==
LOC: ER 15:29 → OVERFLOW 18:34 → EAST 20:27
PROVIDERS: ADMIT Nurse Practitioner; ATTEND Internal Medicine
DX: N30.00 Acute cystitis without hematuria (principal); K76.6 Portal hypertension; F05 Delirium due to known physiological condition; D53.9 Nutritional anemia, unspecified; K74.60 Unspecified cirrhosis of liver; E11.9 Type 2 diabetes mellitus without complications; F03.90 Unspecified dementia, unspecified severity, without behavioral disturbance, psychotic disturbance, mood disturbance, and anxiety; R91.8 Other nonspecific abnormal finding of lung field; Z20.822 Contact with and (suspected) exposure to COVID-19; Z82.49 Family history of ischemic heart disease and other diseases of the circulatory system; Z85.07 Personal history of malignant neoplasm of pancreas; Z87.440 Personal history of urinary (tract) infections
CPT/HCPCS: 36415; 71045; 71260; 74177; 80048; 80053; 80061; 81001; 82962; 83036; 83735; 84439; 84443; 85025; 87040; 87077; 87086; 87186; 93005; 96360; G0378; J1335; J1815; J3490

== ENCOUNTER 2021-07-07 11:13 | Inpatient (IN) | payer BC, OTHER ==
[~2021-07-07] VITALS: Ht 182.9 cm; Wt 59.1 kg
[~2021-07-07 11:13] MED LIST changes: -ASPI1TAB20 PO; +FURO40TA4 PO; +LEVO500T31 PO; -MEGE40TA4 PO; +SPIR50TA2 PO; +TAM04C PO
[2021-07-07 13:36] LABS: Basophils # (auto) 0.1 10 ^3/uL (0-0.2); Eosinophils # (auto) 0.4 10 ^3/uL (0-0.8); Hemoglobin 11.9 g/dL (13.5-17.5)
[2021-07-07 13:39] LABS: Basophils % (auto) 1.2 % (0.0-2.0); Eosinophils % (auto) 5.9 % (0.0-7.0); Hematocrit 36.1 % (41.0-53.0); Lymphocytes # (auto) 0.9 10 ^3/uL (0.4-5.4); Lymphocytes % (auto) 14.2 % (10.0-50.0); Mean Corpuscular Volume 78.9 fL (80.0-100.0); Monocytes # (auto) 0.7 10 ^3/uL (0-1.3); Monocytes % (auto) 12.4 % (0.0-12.0); Neutrophils % (auto) 66.3 % (37.0-80.0); Nucleated Red Blood Cells % 0.1 %; Red Blood Cells 4.58 10^6/uL (4.5-5.90); Red Cell Distribution Width 18.7 % (11.8-14.3)
[2021-07-07 13:48] LABS: Albumin 3.2 g/dL (3.4-5.0); Magnesium 2.1 mg/dL (1.6-2.6); Potassium 4.1 mmol/L (3.5-5.1)
[2021-07-07 13:50] LABS: BUN/Creatinine Ratio 27.2
[2021-07-07 13:53] LABS: Bilirubin, Total 0.6 mg/dL (0.2-1.0); Total Protein 6.8 g/dL (6.4-8.2)
[2021-07-07 14:02] LABS: Urine Bacteria NONE SEEN /hpf (None Seen); Urine Blood 1+ /uL (Negative); Urine WBC 157 /hpf (0 - 3)
[2021-07-07] MEDS ORDERED: SODIUM CHLORIDE 0.9% 1,000 ML IV ONE (16:15)
[2021-07-07] MEDS ORDERED: ONDANSETRON HCL 4 MG/2 ML VIAL IV PRN (23:00)
[2021-07-07] MEDS ORDERED: MORPHINE SULFATE INJECTION 2 MG/ML SYRG IV PRN (23:00)
[2021-07-07] MEDS ORDERED: cefTRIAXone 1GM/50ML D5W 50 ML IV ONE (23:00)
[2021-07-07] MEDS ORDERED: DEXTROSE (50%) 50ML SYRG IV PRN (23:15)
[2021-07-07 23:40] VITALS: BP 121/62
[2021-07-08] MEDS ORDERED: PNEUMOCOCCAL VACC POLYS 25 MCG/0.5 ML VIAL IM ONE (00:30)
[2021-07-08] MEDS ORDERED: INFLUENZA QUAD 2021-2022 0.5 ML SYRG IM ONE (00:30)
[2021-07-08 00:33] VITALS: BP 121/62
[2021-07-08] MEDS ORDERED: LACT10SO3 PO (00:49)
[2021-07-08] MEDS ORDERED: MISC1LOZ3 PO (00:49)
[2021-07-08] MEDS ORDERED: CHOL25CH3 PO (00:49)
[2021-07-08] MEDS ORDERED: PROB1CHW27 PO (00:49)
[2021-07-08] MEDS ORDERED: CYAN-17 PO (00:49)
[2021-07-08 05:00] VITALS: BP 106/57
[2021-07-08 06:04] LABS: Basophils # (auto) 0.1 10 ^3/uL (0-0.2); Eosinophils # (auto) 0.5 10 ^3/uL (0-0.8); Hemoglobin 10.9 g/dL (13.5-17.5); Lymphocytes # (auto) 0.9 10 ^3/uL (0.4-5.4); Monocytes # (auto) 0.7 10 ^3/uL (0-1.3); Neutrophils # (auto) 2.8 10 ^3/uL (1.6-8.6)
[2021-07-08 06:10] LABS: Basophils % (auto) 1.5 % (0.0-2.0); Eosinophils % (auto) 10.6 % (0.0-7.0); Hematocrit 32.3 % (41.0-53.0); Lymphocytes % (auto) 18.1 % (10.0-50.0); Mean Corpuscular Hemoglobin 26.4 pg (28.0-32.0); Mean Corpuscular Hgb Conc. 33.7 g/dL (32.0-36.0); Mean Corpuscular Volume 78.2 fL (80.0-100.0); Monocytes % (auto) 14.4 % (0.0-12.0); Neutrophils % (auto) 55.4 % (37.0-80.0); Nucleated Red Blood Cells % 0.1 %; Red Blood Cells 4.13 10^6/uL (4.5-5.90); Red Cell Distribution Width 18.9 % (11.8-14.3); White Blood Cell 5.1 10^3/uL (4.4-10.8)
[2021-07-08 06:13] LABS: Albumin 2.9 g/dL (3.4-5.0); BUN/Creatinine Ratio 33.8; Calcium 8.6 mg/dL (8.5-10.1); Potassium 3.9 mmol/L (3.5-5.1)
[2021-07-08 06:16] LABS: Bilirubin, Total 0.6 mg/dL (0.2-1.0); Total Protein 5.9 g/dL (6.4-8.2)
[2021-07-08] MEDS: ACCU-CHEK COMFORT CURVE STRIP VI SCH ×4 (06:26→21:26)
[2021-07-08] MEDS: InsuLIN REG 1unit/0.01ml Soln (100units/ml) SC SCH ×4 (06:26→21:32)
[2021-07-08 09:17] VITALS: BP 117/68
[2021-07-08] MEDS ORDERED: ERTAPENEM SOD INJ 1 GM in SODIUM CHL 0.9% 50 ML IV SCH (10:00)
[2021-07-08] MEDS: cefTRIAXone 1GM/50ML D5W 50 ML IV SCH (10:48)
[2021-07-08] MEDS: ENOXAPARIN SOD 40 MG/0.4 ML SYRINGE SC SCH (10:49)
[2021-07-08 13:00] VITALS: BP 135/78
[2021-07-08 16:30] VITALS: BP 126/69
[2021-07-08 21:48] VITALS: BP 118/66
[2021-07-09 05:18] VITALS: BP 110/54
[2021-07-09] MEDS: ACCU-CHEK COMFORT CURVE STRIP VI SCH ×4 (06:10→22:05)
[2021-07-09] MEDS: InsuLIN REG 1unit/0.01ml Soln (100units/ml) SC SCH ×4 (06:13→22:10)
[2021-07-09 09:12] VITALS: BP 120/67
[2021-07-09] MEDS: cefTRIAXone 1GM/50ML D5W 50 ML IV SCH (09:12)
[2021-07-09] MEDS: ENOXAPARIN SOD 40 MG/0.4 ML SYRINGE SC SCH (09:12)
[2021-07-09 13:00] VITALS: BP 120/69
[2021-07-09 16:54] VITALS: BP 129/73
[2021-07-09 22:00] VITALS: BP 102/65
[2021-07-10 05:01] VITALS: BP 103/56
[2021-07-10] MEDS: ACCU-CHEK COMFORT CURVE STRIP VI SCH ×2 (06:37→11:30)
[2021-07-10] MEDS: InsuLIN REG 1unit/0.01ml Soln (100units/ml) SC SCH ×2 (06:39→11:30)
[2021-07-10] MEDS: cefTRIAXone 1GM/50ML D5W 50 ML IV SCH (08:54)
[2021-07-10 09:00] VITALS: BP 97/60
[2021-07-10] MEDS: ENOXAPARIN SOD 40 MG/0.4 ML SYRINGE SC SCH (10:00)
[2021-07-10 13:00] VITALS: BP 112/60
== END 2021-07-10 16:19 | disposition home or self-care (01) | DRG 948 ==
LOC: ER 11:13 → WEST WING 23:35
PROVIDERS: ADMIT Registered Nurse; ATTEND Internal Medicine
DX: R53.1 Weakness (principal); C25.9 Malignant neoplasm of pancreas, unspecified; N39.0 Urinary tract infection, site not specified; I85.10 Secondary esophageal varices without bleeding; K86.3 Pseudocyst of pancreas; D3A.8 Other benign neuroendocrine tumors; D63.8 Anemia in other chronic diseases classified elsewhere; Z66 Do not resuscitate; E11.22 Type 2 diabetes mellitus with diabetic chronic kidney disease; F03.90 Unspecified dementia, unspecified severity, without behavioral disturbance, psychotic disturbance, mood disturbance, and anxiety; I86.4 Gastric varices; Z20.822 Contact with and (suspected) exposure to COVID-19; J44.9 Chronic obstructive pulmonary disease, unspecified; K44.9 Diaphragmatic hernia without obstruction or gangrene; K74.60 Unspecified cirrhosis of liver; N20.0 Calculus of kidney; N32.3 Diverticulum of bladder; Z85.07 Personal history of malignant neoplasm of pancreas; Z82.49 Family history of ischemic heart disease and other diseases of the circulatory system; Z87.440 Personal history of urinary (tract) infections; Z87.19 Personal history of other diseases of the digestive system; Z28.82 Immunization not carried out because of caregiver refusal
CPT/HCPCS: 36415; 70450; 71045; 71250; 80053; 81001; 82962; 83735; 84484; 85025; 87086; 87205; 96361; 96374; 97110; 97116; 97163; 97530; G0378; J0696; J1335; J1815

== ENCOUNTER → 2022-07-30 | Outpatient (CLI) | payer BC ==
[~2022-07-30] MED LIST changes: +CHOL25CH3 PO; +CYAN-17 PO; +LACT10SO3 PO; +MISC1LOZ3 PO; +PROB1CHW27 PO
[2022-07-30 07:48] LABS: Urine Bacteria NONE SEEN /hpf (None Seen); Urine Blood 3+ /uL (Negative); Urine WBC 4734 /hpf (0 - 3); Urine WBC Clumps PRESENT /hpf (None Seen)
== END | disposition home or self-care (01) ==
LOC: LAB 06:40
PROVIDERS: ATTEND Urology
DX: N39.0 Urinary tract infection, site not specified (principal)
CPT/HCPCS: 81001; 87086; 87088; 87186

== ENCOUNTER 2022-10-22 10:30 | Inpatient (IN) | payer BC, MEDICARE, OTHER ==
[~2022-10-22] VITALS: Ht 170.2 cm; Wt 55.3 kg
[~2022-10-22 10:30] MED LIST changes: -TAM04C PO; +TAMS-35 PO
[2022-10-22] MEDS ORDERED: HYDROcodone-ACET 10/325MG TAB PO ONE (11:30)
[2022-10-22 12:17] LABS: Basophils # (auto) 0 10 ^3/uL (0-0.2); Basophils % (auto) 0.3 % (0.0-2.0); Eosinophils # (auto) 0 10 ^3/uL (0-0.8); Hemoglobin 11.7 g/dL (13.5-17.5); Mean Corpuscular Volume 76.5 fL (80.0-100.0)
[2022-10-22 12:22] LABS: Eosinophils % (auto) 0.8 % (0.0-7.0); Hematocrit 36.3 % (41.0-53.0); Lymphocytes # (auto) 0.6 10 ^3/uL (0.4-5.4); Lymphocytes % (auto) 9.6 % (10.0-50.0); Mean Corpuscular Hemoglobin 24.7 pg (28.0-32.0); Mean Corpuscular Hgb Conc. 32.2 g/dL (32.0-36.0); Monocytes # (auto) 0.6 10 ^3/uL (0-1.3); Monocytes % (auto) 9.1 % (0.0-12.0); Neutrophils # (auto) 4.9 10 ^3/uL (1.6-8.6); Neutrophils % (auto) 80.2 % (37.0-80.0); Red Blood Cells 4.75 10^6/uL (4.5-5.90); Red Cell Distribution Width 18.6 % (11.8-14.3); White Blood Cell 6.1 10^3/uL (4.4-10.8)
[2022-10-22 12:32] LABS: Albumin 2.5 g/dL (3.4-5.0); Calcium 8.1 mg/dL (8.5-10.1); INR 1.14 (0.9-1.15); Magnesium 1.9 mg/dL (1.6-2.6); Partial Thromboplastin Time 25.4 SEC (24.5-34.5); Potassium 4.3 mmol/L (3.5-5.1); Prothrombin Time 11.9 sec (9.3-11.8)
[2022-10-22 12:35] LABS: BUN/Creatinine Ratio 22.2 (10.0-20.0); Bilirubin, Total 0.5 mg/dL (0.2-1.0); Total Protein 5.5 g/dL (6.4-8.2)
[2022-10-22] MEDS ORDERED: IOHEXOL 350 MG/ML 100ML IJ ONE ×2 (14:16→15:19)
[2022-10-22 14:26] VITALS: PULSE 71; RESP 18; O2SAT 97
[2022-10-22] MEDS ORDERED: ACETAMINOPHEN 325 MG TAB PO PRN (17:00)
[2022-10-22] MEDS ORDERED: DEXTROSE (50%) 50ML SYRG IV PRN (17:00)
[2022-10-22] MEDS: ACCU-CHEK COMFORT CURVE STRIP VI SCH ×2 (18:39→21:59)
[2022-10-22] MEDS: InsuLIN REG 1unit/0.01ml Soln (100units/ml) SC SCH ×2 (18:41→22:02)
[2022-10-22 19:00] LABS: Urine Bacteria NONE SEEN /hpf (None Seen); Urine Blood 3+ /uL (Negative); Urine Clarity CLOUDY (Clear); Urine Color Yellow (Yellow); Urine Protein, UAD 2+ (Negative); Urine Urobilinogen Normal (Negative); Urine WBC 1559 /hpf (0 - 3); Urine WBC Clumps PRESENT /hpf (None Seen); Urine pH 8.5 (5.0-8.0)
[2022-10-22] MEDS: HYDROcodone-ACET 5/325MG TAB PO PRN (19:12)
[2022-10-22] MEDS: TAMSULOSIN HYDROCHLORIDE 0.4 MG CAP PO SCH (19:12)
[2022-10-22] MEDS: SODIUM CHLORIDE 0.9% 1,000 ML IV SCH (19:23)
[2022-10-22 19:40] VITALS: PULSE 86; RESP 16; O2SAT 99
[2022-10-22 22:45] VITALS: PULSE 60; RESP 12; O2SAT 95
[2022-10-23] MEDS: SODIUM CHLORIDE 0.9% 1,000 ML IV SCH ×2 (03:00→12:53)
[2022-10-23 04:38] VITALS: BP 110/63; PULSE 57; PULSE 61; RESP 18
[2022-10-23 05:00] VITALS: BP 110/63; PULSE 61; RESP 18; TEMP 97.7; O2SAT 98
[2022-10-23] MEDS: ACCU-CHEK COMFORT CURVE STRIP VI SCH ×4 (06:46→22:04)
[2022-10-23] MEDS: InsuLIN REG 1unit/0.01ml Soln (100units/ml) SC SCH ×4 (06:46→22:05)
[2022-10-23 07:27] LABS: Basophils # (auto) 0 10 ^3/uL (0-0.2); Basophils % (auto) 0.2 % (0.0-2.0); Eosinophils # (auto) 0 10 ^3/uL (0-0.8); Eosinophils % (auto) 0.7 % (0.0-7.0); Hematocrit 36.9 % (41.0-53.0); Lymphocytes # (auto) 0.7 10 ^3/uL (0.4-5.4); Nucleated Red Blood Cells % 0.1 %; White Blood Cell 7.1 10^3/uL (4.4-10.8)
[2022-10-23 07:32] LABS: Hemoglobin 11.9 g/dL (13.5-17.5); Lymphocytes % (auto) 9.9 % (10.0-50.0); Mean Corpuscular Hgb Conc. 32.3 g/dL (32.0-36.0); Mean Corpuscular Volume 77.4 fL (80.0-100.0); Monocytes # (auto) 0.7 10 ^3/uL (0-1.3); Monocytes % (auto) 10.4 % (0.0-12.0); Neutrophils # (auto) 5.6 10 ^3/uL (1.6-8.6); Neutrophils % (auto) 78.8 % (37.0-80.0); Red Blood Cells 4.76 10^6/uL (4.5-5.90); Red Cell Distribution Width 18.5 % (11.8-14.3)
[2022-10-23 08:13] LABS: Potassium 3.9 mmol/L (3.5-5.1)
[2022-10-23 08:29] LABS: Albumin 2.4 g/dL (3.4-5.0); BUN/Creatinine Ratio 23.8 (10.0-20.0); Bilirubin, Total 0.4 mg/dL (0.2-1.0); Calcium 8.1 mg/dL (8.5-10.1); Total Protein 5.9 g/dL (6.4-8.2)
[2022-10-23 09:00] VITALS: BP 115/66; PULSE 50; RESP 16; TEMP 97.7; O2SAT 91
[2022-10-23] MEDS: SPIRONOLACTONE 25 MG TAB PO SCH (10:42)
[2022-10-23] MEDS: ENOXAPARIN SOD 40 MG/0.4 ML SYRINGE SC SCH (10:42)
[2022-10-23] MEDS ORDERED: cefTRIAXone 1GM/50ML D5W 50 ML IV ONE (10:45)
[2022-10-23 12:11] LABS: Alcohol, Urine < 3.0 mg/dL (0-10); Amphetamine Screen, Urine NEGATIVE (NEGATIVE); Barbiturate Scree,Urine POSITIVE (NEGATIVE); Benzodiazephine Screen, Urine NEGATIVE (NEGATIVE); Cannabinoid Screen, Urine POSITIVE (NEGATIVE); Cocaine Screen, Urine NEGATIVE (NEGATIVE)
[2022-10-23 12:22] LABS: Opiate Scree,Urine POSITIVE (NEGATIVE); Phencyclidine Screen, Urine NEGATIVE (NEGATIVE)
[2022-10-23] MEDS: HYDROcodone-ACET 5/325MG TAB PO PRN (12:52)
[2022-10-23 13:00] VITALS: BP 126/68; PULSE 62; RESP 18; TEMP 98; O2SAT 98
[2022-10-23 16:47] VITALS: BP 124/77; PULSE 60; RESP 18; TEMP 97.5; O2SAT 94
[2022-10-23] MEDS: TAMSULOSIN HYDROCHLORIDE 0.4 MG CAP PO SCH (17:34)
[2022-10-23 22:00] VITALS: BP 120/72; PULSE 58; RESP 16; TEMP 98.1; O2SAT 97
[2022-10-24] MEDS: HYDROcodone-ACET 5/325MG TAB PO PRN (02:43)
[2022-10-24 05:00] VITALS: BP 122/60; PULSE 59; RESP 18; TEMP 98.1; O2SAT 96
[2022-10-24] MEDS: InsuLIN REG 1unit/0.01ml Soln (100units/ml) SC SCH ×3 (06:36→18:17)
[2022-10-24] MEDS: ACCU-CHEK COMFORT CURVE STRIP VI SCH ×3 (06:36→18:16)
[2022-10-24 06:39] LABS: Basophils # (auto) 0 10 ^3/uL (0-0.2); Eosinophils # (auto) 0.1 10 ^3/uL (0-0.8); Hemoglobin 11.2 g/dL (13.5-17.5); Mean Corpuscular Volume 76.9 fL (80.0-100.0)
[2022-10-24 06:43] LABS: Basophils % (auto) 0.5 % (0.0-2.0); Eosinophils % (auto) 1.7 % (0.0-7.0); Hematocrit 34.8 % (41.0-53.0); Lymphocytes # (auto) 0.5 10 ^3/uL (0.4-5.4); Lymphocytes % (auto) 11.7 % (10.0-50.0); Mean Corpuscular Hemoglobin 24.7 pg (28.0-32.0); Mean Corpuscular Hgb Conc. 32.1 g/dL (32.0-36.0); Monocytes # (auto) 0.6 10 ^3/uL (0-1.3); Monocytes % (auto) 12.7 % (0.0-12.0); Neutrophils # (auto) 3.2 10 ^3/uL (1.6-8.6); Neutrophils % (auto) 73.4 % (37.0-80.0); Nucleated Red Blood Cells % 0.2 %; Red Blood Cells 4.52 10^6/uL (4.5-5.90); Red Cell Distribution Width 18.6 % (11.8-14.3); White Blood Cell 4.4 10^3/uL (4.4-10.8)
[2022-10-24 06:55] LABS: Potassium 3.7 mmol/L (3.5-5.1)
[2022-10-24 07:05] LABS: Albumin 2.3 g/dL (3.4-5.0); BUN/Creatinine Ratio 20.4 (10.0-20.0); Bilirubin, Total 0.5 mg/dL (0.2-1.0); Calcium 7.8 mg/dL (8.5-10.1); Total Protein 5.3 g/dL (6.4-8.2)
[2022-10-24 07:06] LABS: RPR Non Reactive (Non Reactive)
[2022-10-24 08:00] VITALS: PULSE 54; RESP 16
[2022-10-24 09:00] VITALS: BP 136/73; PULSE 54; RESP 16; TEMP 97.8; O2SAT 97
[2022-10-24] MEDS ORDERED: cefTRIAXone 1GM/50ML D5W 50 ML IV SCH (09:00)
[2022-10-24] MEDS: ENOXAPARIN SOD 40 MG/0.4 ML SYRINGE SC SCH (10:45)
[2022-10-24] MEDS: SPIRONOLACTONE 25 MG TAB PO SCH (10:45)
[2022-10-24 13:00] VITALS: BP 125/77; PULSE 59; RESP 16; TEMP 97.6; O2SAT 95
[2022-10-24] MEDS ORDERED: CEPH250C PO ×2 (13:23)
[2022-10-24 17:00] VITALS: BP 133/79; PULSE 85; RESP 18; TEMP 98.1; O2SAT 96
[2022-10-24] MEDS: TAMSULOSIN HYDROCHLORIDE 0.4 MG CAP PO SCH (18:17)
[2022-10-25] MEDS ORDERED: CIP500T PO (12:51)
== END 2022-10-24 19:18 | disposition home or self-care (01) | DRG 690 ==
LOC: ER 10:30 → EDBD 10:30 → EDUNIT# 10:30 → OVERFLOW 16:54 → WEST WING 10-23 03:01
PROVIDERS: ADMIT Internal Medicine; ATTEND Internal Medicine
DX: N12 Tubulo-interstitial nephritis, not specified as acute or chronic (principal); K86.2 Cyst of pancreas; E46 Unspecified protein-calorie malnutrition; Z68.1 Body mass index [BMI] 19.9 or less, adult; E11.9 Type 2 diabetes mellitus without complications; F03.90 Unspecified dementia, unspecified severity, without behavioral disturbance, psychotic disturbance, mood disturbance, and anxiety; N40.1 Benign prostatic hyperplasia with lower urinary tract symptoms; B96.5 Pseudomonas (aeruginosa) (mallei) (pseudomallei) as the cause of diseases classified elsewhere; N32.3 Diverticulum of bladder; N20.0 Calculus of kidney; I72.8 Aneurysm of other specified arteries; Z79.4 Long term (current) use of insulin; Z85.07 Personal history of malignant neoplasm of pancreas; Z79.899 Other long term (current) drug therapy; Z82.49 Family history of ischemic heart disease and other diseases of the circulatory system
CPT/HCPCS: 36415; 70551; 71045; 71275; 74176; 74181; 80053; 80307; 81001; 82607; 82962; 83036; 83605; 83735; 83880; 84443; 84484; 85025; 85379; 85610; 85730; 86301; 86592; 87040; 87086; 87088; 87186; 97110; 97116; 97163; 97530; G0378; J0696; J1815

== ENCOUNTER → 2022-11-11 | Outpatient (CLI) | payer BC, MEDICARE ==
[~2022-11-11] MED LIST changes: +CIP500T PO; -LEVO500T31 PO
== END | disposition home or self-care (01) ==
LOC: XYW 07:57
PROVIDERS: ATTEND Student in an Organized Health Care Education/Training Program
DX: I08.0 Rheumatic disorders of both mitral and aortic valves (principal); I50.32 Chronic diastolic (congestive) heart failure
CPT/HCPCS: 93306

== ENCOUNTER → 2022-11-21 | Outpatient (CLI) | payer BC ==
[~2022-11-21] VITALS: Ht 182.9 cm; Wt 56.7 kg
[~2022-11-21] MED LIST changes: +ADENOSINE 48 MG in GIVE UN-DILUTED 0 ML IV ONE
== END | disposition home or self-care (01) ==
LOC: XYW 07:41
PROVIDERS: ATTEND Nurse Practitioner
DX: Z01.810 Encounter for preprocedural cardiovascular examination (principal); I25.10 Atherosclerotic heart disease of native coronary artery without angina pectoris
CPT/HCPCS: 78452; A9500; J0153

== ENCOUNTER → 2023-01-09 | Day surgery (SDC) | payer BC ==
[2023-01-07 12:47] LABS: INR 1.1 (0.9-1.15); Partial Thromboplastin Time 27.6 SEC (24.5-34.5); Prothrombin Time 11.5 sec (9.3-11.8)
[2023-01-07 12:52] LABS: Hemoglobin 12.1 g/dL (13.5-17.5); White Blood Cell 4.9 10^3/uL (4.4-10.8)
[2023-01-07 12:54] LABS: Hematocrit 37.6 % (41.0-53.0); Mean Corpuscular Hemoglobin 24.5 pg (28.0-32.0); Mean Corpuscular Hgb Conc. 32.1 g/dL (32.0-36.0); Mean Corpuscular Volume 76.4 fL (80.0-100.0); Red Blood Cells 4.93 10^6/uL (4.5-5.90)
[2023-01-07 12:56] LABS: Red Cell Distribution Width 20.1 % (11.8-14.3)
[2023-01-07 12:57] LABS: Basophils % (manual) 0 (0.0-2.0); Blast Cells 0; Eosinophils % (manual) 0 (0-7); Metamyelocytes % 0; Myelocytes % 0; Promyelocytes % 0; Reactive Lymphocytes 0
[2023-01-07 13:14] LABS: Alanine Aminotransferase 12 U/L (7-40); Albumin 3.8 g/dL (3.2-4.8); Alkaline Phosphatase 126 U/L (46-116); Anion Gap 6 (5-15); Aspartate Aminotransferase 25 U/L (13-40); Blood Urea Nitrogen 15 mg/dL (9-23); Calcium 9.2 mg/dL (8.5-10.1); Carbon Dioxide 25 mmol/L (20-30); Chloride 105 mmol/L (98-107); Glucose 136 mg/dL (74-106); Potassium 4.4 mmol/L (3.5-5.1); Sodium 136 mmol/L (136-145); Total Protein 6.5 g/dL (5.7-8.2)
[2023-01-07 13:40] LABS: Urine Bacteria NONE SEEN /hpf (None Seen); Urine Blood 2+ /uL (Negative); Urine Clarity CLOUDY (Clear); Urine Color PINK (Yellow); Urine Mucus FEW (None Seen); Urine Protein, UAD 2+ (Negative); Urine WBC 5669 /hpf (0 - 3); Urine WBC Clumps PRESENT /hpf (None Seen); Urine pH 6.5 (5.0-8.0)
[2023-01-07 14:21] LABS: Anisocytosis Slight; Band Neutrophils % (manual) 3; Hypochromia Slight; Lymphocytes % (manual) 32 (10.0-50.0); Monocytes % (manual) 5 (0-12)
[2023-01-07 14:22] LABS: Platelet Estimate Adequate
[2023-01-07 14:28] LABS: Urine Specific Gravity 1.015 (1.001-1.035)
[~2023-01-09] VITALS: Ht 182.9 cm; Wt 68.0 kg
[~2023-01-09] MED LIST changes: -ADENOSINE 48 MG in GIVE UN-DILUTED 0 ML IV ONE; -CIP500T PO; +CIPROFLOXACIN 400MG/200ML 200 ML IV ONE; -FURO40TA4 PO; +HYDROmorphone HCL 2 MG/ML VL/or syr IV PRN; -LACT10SO3 PO; +ONDANSETRON HCL 4 MG/2 ML VIAL IV PRN; +PROPOFOL 10 MG/ML 20 ML IV ONE; -SPIR50TA2 PO; +ePHEDrine SULFATE 50 MG/ML AMP ONE; +fentaNYL CITRATE 100 MCG/2 ML VL ONE
[2023-01-09 15:52] VITALS: TEMP 97.2; O2SAT 94
[2023-01-09 17:00] VITALS: BP 123/66; PULSE 63; RESP 13; O2SAT 95
== END | disposition home or self-care (01) ==
LOC: SUR 10:20
PROVIDERS: ATTEND Urology
DX: N20.0 Calculus of kidney (principal); N21.0 Calculus in bladder; N40.0 Benign prostatic hyperplasia without lower urinary tract symptoms; E11.9 Type 2 diabetes mellitus without complications; K76.6 Portal hypertension
CPT/HCPCS: 36415; 50590; 52318; 52332; 74018; 80053; 81001; 82962; 85007; 85027; 85610; 85730; 87086; 88300; C1769; C2617; J0744; J2704; J3010; J7030

== ENCOUNTER 2023-01-15 11:49 | Inpatient (IN) | payer BC ==
[~2023-01-15] VITALS: Ht 172.7 cm; Wt 52.8 kg
[2023-01-15] MEDS: InsuLIN REG 1unit/0.01ml Soln (100units/ml) SC SCH ×2 (00:45→17:00)
[~2023-01-15 11:49] MED LIST changes: -CIPROFLOXACIN 400MG/200ML 200 ML IV ONE; -HYDROmorphone HCL 2 MG/ML VL/or syr IV PRN; -ONDANSETRON HCL 4 MG/2 ML VIAL IV PRN; -PROPOFOL 10 MG/ML 20 ML IV ONE; -ePHEDrine SULFATE 50 MG/ML AMP ONE; -fentaNYL CITRATE 100 MCG/2 ML VL ONE
[2023-01-15] MEDS ORDERED: SODIUM CHLORIDE 0.9% 1,000 ML IV ONE (12:30)
[2023-01-15 13:06] LABS: Basophils # (auto) 0 10 ^3/uL (0-0.2); Basophils % (auto) 0.2 % (0.0-2.0); Eosinophils # (auto) 0 10 ^3/uL (0-0.8); Hematocrit 40.4 % (41.0-53.0); Hemoglobin 12.9 g/dL (13.5-17.5); Lymphocytes # (auto) 0.7 10 ^3/uL (0.4-5.4); Lymphocytes % (auto) 4.1 % (10.0-50.0); Mean Corpuscular Hemoglobin 24.5 pg (28.0-32.0); Mean Corpuscular Volume 76.5 fL (80.0-100.0); Monocytes # (auto) 2.1 10 ^3/uL (0-1.3); Monocytes % (auto) 12.6 % (0.0-12.0); Neutrophils # (auto) 13.8 10 ^3/uL (1.6-8.6); Neutrophils % (auto) 83.1 % (37.0-80.0); Red Blood Cells 5.28 10^6/uL (4.5-5.90); Red Cell Distribution Width 21.2 % (11.8-14.3); White Blood Cell 16.6 10^3/uL (4.4-10.8)
[2023-01-15 13:15] VITALS: PULSE 90; RESP 19; O2SAT 94
[2023-01-15 13:17] LABS: Alanine Aminotransferase 16 U/L (7-40); Alkaline Phosphatase 123 U/L (46-116); Anion Gap 8 (5-15); Aspartate Aminotransferase 25 U/L (13-40); BUN/Creatinine Ratio 23.1 (10.0-20.0); Bilirubin, Total 0.9 mg/dL (0.2-1.0); Blood Urea Nitrogen 18 mg/dL (9-23); Calcium 9.2 mg/dL (8.5-10.1); Carbon Dioxide 26 mmol/L (20-30); Chloride 103 mmol/L (98-107); Glucose 94 mg/dL (74-106); Potassium 4.3 mmol/L (3.5-5.1); Sodium 137 mmol/L (136-145); Total Protein 6.6 g/dL (5.7-8.2)
[2023-01-15 14:18] LABS: Anisocytosis Slight; Platelet Estimate Adequate
[2023-01-15 14:19] LABS: Hypochromia Slight
[2023-01-15] MEDS ORDERED: HYDROcodone-ACET 5/325MG TAB PO ONE (14:30)
[2023-01-15] MEDS ORDERED: ONDANSETRON HCL 4 MG/2 ML VIAL IV PRN (16:00)
[2023-01-15] MEDS ORDERED: DOCUSATE SOD 100 MG CAP PO PRN (16:00)
[2023-01-15] MEDS ORDERED: cefTRIAXone 1GM/50ML D5W 50 ML IV ONE (16:00)
[2023-01-15] MEDS ORDERED: HYDROcodone-ACET 5/325MG TAB PO PRN (16:00)
[2023-01-15] MEDS ORDERED: ACETAMINOPHEN 325 MG TAB PO PRN (16:00)
[2023-01-15] MEDS ORDERED: DEXTROSE (50%) 50ML SYRG IV PRN (16:00)
[2023-01-15] MEDS ORDERED: MORPHINE SULFATE INJ 2 MG/ml SYRG IV PRN (16:00)
[2023-01-15] MEDS: ACCU-CHEK COMFORT CURVE STRIP VI SCH (17:00)
[2023-01-15 19:14] LABS: Urine Bacteria FEW /hpf (None Seen); Urine Blood 2+ /uL (Negative); Urine Clarity HAZY (Clear); Urine Color Yellow (Yellow); Urine Mucus FEW (None Seen); Urine Protein, UAD 2+ (Negative); Urine Specific Gravity 1.016 (1.001-1.035); Urine Urobilinogen Normal (Negative); Urine WBC 478 /hpf (0 - 3)
[2023-01-15] MEDS ORDERED: D5W 5% 1,000 ML IV ONE ×2 (19:15→21:00)
[2023-01-15 19:21] VITALS: PULSE 82; RESP 22; O2SAT 91
[2023-01-15 22:39] VITALS: PULSE 99; RESP 16; O2SAT 95
[2023-01-15 23:45] VITALS: TEMP 97.4
[2023-01-16] VITALS (7 sets, daily range): BP systolic 90–127; BP diastolic 44–72; PULSE 78–97; RESP 15–18; TEMP 98–103; O2SAT 93–98
[2023-01-16] MEDS: ACCU-CHEK COMFORT CURVE STRIP VI SCH ×5 (00:45→23:23)
[2023-01-16 05:30] LABS: Basophils # (auto) 0 10 ^3/uL (0-0.2); Eosinophils # (auto) 0 10 ^3/uL (0-0.8); Neutrophils # (auto) 10.5 10 ^3/uL (1.6-8.6); White Blood Cell 13.3 10^3/uL (4.4-10.8)
[2023-01-16 05:32] LABS: Basophils % (auto) 0.4 % (0.0-2.0); Hemoglobin 11.3 g/dL (13.5-17.5); Lymphocytes # (auto) 0.9 10 ^3/uL (0.4-5.4); Lymphocytes % (auto) 6.6 % (10.0-50.0); Mean Corpuscular Hemoglobin 24.9 pg (28.0-32.0); Mean Corpuscular Hgb Conc. 32.4 g/dL (32.0-36.0); Mean Corpuscular Volume 76.6 fL (80.0-100.0); Monocytes # (auto) 1.8 10 ^3/uL (0-1.3); Monocytes % (auto) 13.9 % (0.0-12.0); Neutrophils % (auto) 79.1 % (37.0-80.0); Red Blood Cells 4.56 10^6/uL (4.5-5.90)
[2023-01-16 05:34] LABS: Red Cell Distribution Width 20.7 % (11.8-14.3)
[2023-01-16 05:56] LABS: Alanine Aminotransferase 12 U/L (7-40); Albumin 3.5 g/dL (3.2-4.8); Alkaline Phosphatase 103 U/L (46-116); Anion Gap 7 (5-15); Aspartate Aminotransferase 27 U/L (13-40); BUN/Creatinine Ratio 18.8 (10.0-20.0); Bilirubin, Total 1.3 mg/dL (0.2-1.0); Blood Urea Nitrogen 15 mg/dL (9-23); Calcium 8.6 mg/dL (8.7-10.4); Carbon Dioxide 24 mmol/L (20-30); Chloride 100 mmol/L (98-107); Glucose 98 mg/dL (74-106); Potassium 3.6 mmol/L (3.5-5.1)
[2023-01-16 05:57] LABS: Sodium 131 mmol/L (136-145); Total Protein 5.8 g/dL (5.7-8.2)
[2023-01-16] MEDS: InsuLIN REG 1unit/0.01ml Soln (100units/ml) SC SCH ×4 (06:37→23:25)
[2023-01-16] MEDS ORDERED: cefTRIAXone 1GM/50ML D5W 50 ML IV SCH (09:00)
[2023-01-16] MEDS: CEFEPIME 1GM/ 50ML 50 ML IV SCH ×2 (13:09→23:18)
[2023-01-17 04:53] VITALS: BP 110/52; PULSE 90; RESP 18; TEMP 98.1; O2SAT 91
[2023-01-17] MEDS: CEFEPIME 1GM/ 50ML 50 ML IV SCH ×2 (06:06→14:44)
[2023-01-17] MEDS: ACCU-CHEK COMFORT CURVE STRIP VI SCH ×3 (06:06→17:00)
[2023-01-17 06:09] LABS: Basophils # (auto) 0 10 ^3/uL (0-0.2); Eosinophils # (auto) 0 10 ^3/uL (0-0.8); Hemoglobin 10.4 g/dL (13.5-17.5); Lymphocytes # (auto) 0.3 10 ^3/uL (0.4-5.4)
[2023-01-17] MEDS: InsuLIN REG 1unit/0.01ml Soln (100units/ml) SC SCH ×3 (06:09→17:00)
[2023-01-17 06:11] LABS: Basophils % (auto) 0.1 % (0.0-2.0); Hematocrit 31.8 % (41.0-53.0); Lymphocytes % (auto) 2.5 % (10.0-50.0); Mean Corpuscular Hemoglobin 24.5 pg (28.0-32.0); Mean Corpuscular Hgb Conc. 32.5 g/dL (32.0-36.0); Mean Corpuscular Volume 75.1 fL (80.0-100.0); Monocytes # (auto) 1.7 10 ^3/uL (0-1.3); Monocytes % (auto) 14.8 % (0.0-12.0); Neutrophils # (auto) 9.6 10 ^3/uL (1.6-8.6); Neutrophils % (auto) 82.6 % (37.0-80.0); Red Blood Cells 4.24 10^6/uL (4.5-5.90); White Blood Cell 11.6 10^3/uL (4.4-10.8)
[2023-01-17 06:12] LABS: Anion Gap 7 (5-15); Calcium 8.7 mg/dL (8.7-10.4); Carbon Dioxide 22 mmol/L (20-30); Chloride 99 mmol/L (98-107); Potassium 3.3 mmol/L (3.5-5.1); Sodium 128 mmol/L (136-145)
[2023-01-17 06:18] LABS: BUN/Creatinine Ratio 23.5 (10.0-20.0); Blood Urea Nitrogen 16 mg/dL (9-23); Glucose 166 mg/dL (74-106); Magnesium 1.6 mg/dL (1.6-2.6)
[2023-01-17 08:00] VITALS: BP 90/44; PULSE 82; RESP 15; TEMP 99; O2SAT 93
[2023-01-17 08:58] VITALS: BP 100/57; PULSE 64; RESP 16; TEMP 98.1; O2SAT 95
[2023-01-17 13:00] VITALS: BP 125/53; PULSE 77; RESP 22; TEMP 98.2; O2SAT 91
[2023-01-17] MEDS ORDERED: MAGNESIUM OXIDE 400 MG TAB PO ONE (13:30)
[2023-01-17] MEDS ORDERED: POTASSIUM CHL 20 Meq TABLET PO ONE (13:30)
[2023-01-17 17:00] VITALS: BP 114/67; PULSE 67; RESP 16; TEMP 97.2; O2SAT 93
== END 2023-01-17 17:30 | disposition home or self-care (01) | DRG 690 ==
LOC: EDBD 11:49 → EDUNIT# 11:49 → ER 11:49 → OVERFLOW 16:04 → EAST 22:09
PROVIDERS: ADMIT Nurse Practitioner Family; ATTEND Internal Medicine
DX: N30.00 Acute cystitis without hematuria (principal); K52.9 Noninfective gastroenteritis and colitis, unspecified; E11.649 Type 2 diabetes mellitus with hypoglycemia without coma; F03.90 Unspecified dementia, unspecified severity, without behavioral disturbance, psychotic disturbance, mood disturbance, and anxiety; R33.9 Retention of urine, unspecified; Z85.07 Personal history of malignant neoplasm of pancreas; Z87.442 Personal history of urinary calculi; Z82.49 Family history of ischemic heart disease and other diseases of the circulatory system
CPT/HCPCS: 36415; 71045; 74176; 80048; 80053; 81001; 82962; 83735; 84443; 84484; 85025; 87081; 87086; 87088; 87186; 93005; 96361; 96365; 97110; 97116; 97163; 97530; G0378; J0696; J1815

== ENCOUNTER 2023-02-08 10:23 | Emergency (ER) | payer BC ==
[~2023-02-08] VITALS: Ht 170.2 cm; Wt 55.0 kg
[2023-02-08 10:46] VITALS: BP 137/87; PULSE 90; RESP 16; TEMP 98.6; O2SAT 96
[2023-02-08 11:46] LABS: Urine Bacteria FEW /hpf (None Seen); Urine Blood 2+ /uL (Negative); Urine Clarity HAZY (Clear); Urine Color Yellow (Yellow); Urine Protein, UAD 2+ (Negative); Urine Specific Gravity 1.015 (1.001-1.035); Urine Urobilinogen Normal (Negative); Urine WBC 733 /hpf (0 - 3); Urine WBC Clumps PRESENT /hpf (None Seen)
[2023-02-08] MEDS ORDERED: cefTRIAXone SOD 1,000 MG VL IM ONE (12:15)
[2023-02-08] MEDS ORDERED: CIPR-173 PO (12:32)
== END 2023-02-08 14:21 | disposition home or self-care (01) ==
LOC: EDBD 10:23 → ER 10:23
DX: N39.0 Urinary tract infection, site not specified (principal); E11.9 Type 2 diabetes mellitus without complications; Z79.4 Long term (current) use of insulin; Z79.899 Other long term (current) drug therapy
CPT/HCPCS: 51702; 81001; 96372; 99284; J0696

== ENCOUNTER 2023-02-22 22:38 | Inpatient (IN) | payer BC ==
[~2023-02-22] VITALS: Ht 175.3 cm; Wt 61.6 kg
[~2023-02-22 22:38] MED LIST changes: +CIPR-173 PO
[2023-02-22 23:00] VITALS: RESP 19; O2SAT 96
[2023-02-22 23:19] LABS: Basophils # (auto) 0.1 10 ^3/uL (0-0.2); Eosinophils # (auto) 0 10 ^3/uL (0-0.8); Hemoglobin 11.5 g/dL (13.5-17.5); Lymphocytes # (auto) 0.2 10 ^3/uL (0.4-5.4); Monocytes # (auto) 1.2 10 ^3/uL (0-1.3); Neutrophils # (auto) 24.8 10 ^3/uL (1.6-8.6); White Blood Cell 26.3 10^3/uL (4.4-10.8)
[2023-02-22 23:21] LABS: Basophils % (auto) 0.5 % (0.0-2.0); Hematocrit 35.8 % (41.0-53.0); Lymphocytes % (auto) 0.6 % (10.0-50.0); Mean Corpuscular Hemoglobin 23.6 pg (28.0-32.0); Mean Corpuscular Hgb Conc. 32.1 g/dL (32.0-36.0); Mean Corpuscular Volume 73.7 fL (80.0-100.0); Monocytes % (auto) 4.4 % (0.0-12.0); Neutrophils % (auto) 94.5 % (37.0-80.0); Red Blood Cells 4.87 10^6/uL (4.5-5.90); Red Cell Distribution Width 19.8 % (11.8-14.3)
[2023-02-22 23:36] LABS: Alanine Aminotransferase 18 U/L (7-40); Albumin 3.7 g/dL (3.2-4.8); Alkaline Phosphatase 110 U/L (46-116); Amylase 74 U/L (30-118); Anion Gap 11 (5-15); Aspartate Aminotransferase 33 U/L (13-40); BUN/Creatinine Ratio 11.2 (10.0-20.0); Bilirubin, Total 1.2 mg/dL (0.2-1.0); Blood Urea Nitrogen 33 mg/dL (9-23); Calcium 9.1 mg/dL (8.5-10.1); Carbon Dioxide 20 mmol/L (20-30); Chloride 100 mmol/L (98-107); Glucose 76 mg/dL (74-106); Sodium 131 mmol/L (136-145); Total Protein 6.2 g/dL (5.7-8.2)
[2023-02-22 23:44] LABS: Potassium 5.6 mmol/L (3.5-5.1)
[2023-02-22 23:57] LABS: Lipase 24 U/L (12-53)
[2023-02-22 23:58] LABS: Blood Alcohol < 3.0 mg/dL (<10)
[2023-02-23] MEDS ORDERED: InsuLIN REG 1unit/0.01ml Soln (100units/ml) IV ONE
[2023-02-23] MEDS ORDERED: LORazepam 2MG/ML-1ML VIAL IV ONE
[2023-02-23] MEDS ORDERED: SODIUM BICARBONATE 8.4% INJ 50ML SYRINGE IV ONE
[2023-02-23] MEDS ORDERED: DEXTROSE (50%) 50ML SYRG IV ONE
[2023-02-23] MEDS ORDERED: PANTOPRAZOLE 40 MG/10 ML VIAL INJ IV ONE
[2023-02-23] MEDS ORDERED: CALCIUM GLUC 1,000mg/50ml-NS 50 ML IV ONE
[2023-02-23] MEDS ORDERED: SODIUM CHLORIDE 0.9% 3,000 ML IV ONE
[2023-02-23 01:00] LABS: Urine Bacteria NONE SEEN /hpf (None Seen); Urine Blood 3+ /uL (Negative); Urine Clarity CLOUDY (Clear); Urine Color PINK (Yellow); Urine Protein, UAD 2+ (Negative); Urine Specific Gravity 1.015 (1.001-1.035); Urine Urobilinogen Normal (Negative); Urine WBC 999 /hpf (0 - 3); Urine WBC Clumps PRESENT /hpf (None Seen); Urine pH 6.5 (5.0-8.0)
[2023-02-23] MEDS ORDERED: VANCOMYCIN 1GM/250ML 250 ML IV ONE (01:00)
[2023-02-23 01:12] LABS: INR 1.36 (0.9-1.15); Partial Thromboplastin Time 30.6 SEC (24.5-34.5)
[2023-02-23] MEDS: PIPERACILLIN-TAZOB 3.375GM 100 ML IV SCH ×4 (01:20→18:09)
[2023-02-23 01:31] LABS: Lactic Acid w/Reflex 2.7 mmol/L (0.4-2.0)
[2023-02-23] MEDS ORDERED: ACETAMINOPHEN 500 MG TAB PO ONE (05:30)
[2023-02-23] MEDS ORDERED: DOCUSATE SOD 100 MG CAP PO PRN (06:15)
[2023-02-23] MEDS ORDERED: HYDROcodone-ACET 5/325MG TAB PO PRN (06:15)
[2023-02-23] MEDS ORDERED: ACETAMINOPHEN 325 MG TAB PO PRN (06:15)
[2023-02-23] MEDS ORDERED: ONDANSETRON HCL 4 MG/2 ML VIAL IV PRN (06:15)
[2023-02-23] MEDS ORDERED: MORPHINE SULFATE INJ 2 MG/ml SYRG IV PRN (06:45)
[2023-02-23] MEDS ORDERED: NITROGLYCERIN 0.4 MG SL TAB SL PRN (06:45)
[2023-02-23 06:59] LABS: Basophils # (auto) 0 10 ^3/uL (0-0.2); Eosinophils # (auto) 0 10 ^3/uL (0-0.8)
[2023-02-23] MEDS ORDERED: VANCOMYCIN PER PHARMACY 0 MG IV SCH ×2 (07:00)
[2023-02-23] MEDS ORDERED: PIPERACILLIN-TAZOB 3.375GM 100 ML IV ONE (07:00)
[2023-02-23] MEDS: PHENYLEPHRINE IV 250 ML IV SCH ×2 (07:20→21:27)
[2023-02-23 07:23] LABS: Basophils % (auto) 0.1 % (0.0-2.0); Hematocrit 38.1 % (41.0-53.0); Hemoglobin 11.6 g/dL (13.5-17.5); Lymphocytes # (auto) 0.3 10 ^3/uL (0.4-5.4); Lymphocytes % (auto) 1.5 % (10.0-50.0); Mean Corpuscular Hemoglobin 24.1 pg (28.0-32.0); Mean Corpuscular Hgb Conc. 30.4 g/dL (32.0-36.0); Mean Corpuscular Volume 79.2 fL (80.0-100.0); Monocytes # (auto) 1.3 10 ^3/uL (0-1.3); Monocytes % (auto) 6.8 % (0.0-12.0); Neutrophils # (auto) 17.3 10 ^3/uL (1.6-8.6); Neutrophils % (auto) 91.6 % (37.0-80.0); Nucleated Red Blood Cells % 0.1 %; Red Blood Cells 4.81 10^6/uL (4.5-5.90); White Blood Cell 18.9 10^3/uL (4.4-10.8)
[2023-02-23 07:25] LABS: Red Cell Distribution Width 20.1 % (11.8-14.3)
[2023-02-23 07:36] VITALS: PULSE 77; RESP 15; O2SAT 99
[2023-02-23] MEDS: InsuLIN REG 1unit/0.01ml Soln (100units/ml) SC SCH ×4 (07:48→20:30)
[2023-02-23] MEDS: ACCU-CHEK COMFORT CURVE STRIP VI SCH ×4 (07:48→20:30)
[2023-02-23] MEDS: DEXTROSE (50%) 50ML SYRG IV PRN ×2 (08:04→21:28)
[2023-02-23] MEDS ORDERED: D5W/SOD CHLO 0.9% 1,000 ML IV SCH ×2 (08:15→09:45)
[2023-02-23 08:23] LABS: Platelet Estimate Adequate
[2023-02-23 08:25] LABS: Anisocytosis Slight; Hypochromia Moderate
[2023-02-23 09:33] LABS: Chloride 104 mmol/L (98-107); Potassium 3.9 mmol/L (3.5-5.1); Sodium 134 mmol/L (136-145)
[2023-02-23 09:36] LABS: Anion Gap 8 (5-15); Calcium 8.5 mg/dL (8.5-10.1); Carbon Dioxide 22 mmol/L (20-30)
[2023-02-23 09:41] LABS: Glucose 114 mg/dL (74-106)
[2023-02-23 09:42] LABS: Alkaline Phosphatase 93 U/L (46-116); BUN/Creatinine Ratio 18.6 (10.0-20.0); Blood Urea Nitrogen 29 mg/dL (9-23)
[2023-02-23 09:43] LABS: Alanine Aminotransferase 15 U/L (7-40); Albumin 2.9 g/dL (3.2-4.8); Aspartate Aminotransferase 31 U/L (13-40)
[2023-02-23 09:44] LABS: Bilirubin, Total 1.2 mg/dL (0.2-1.0); Total Protein 4.9 g/dL (5.7-8.2)
[2023-02-23] MEDS ORDERED: PIPERACILLIN-TAZOB 3.375GM 100 ML IV SCH (10:00)
[2023-02-23] MEDS ORDERED: SODIUM CHLORIDE 0.9% 1,000 ML IV SCH (10:00)
[2023-02-23] MEDS: LINEZOLID 600MG/300ML 300 ML IV SCH ×2 (10:13→22:20)
[2023-02-23] MEDS: D5W/SOD CHLO 0.9% 1,000 ML IV SCH ×2 (11:28→22:21)
[2023-02-23 13:05] LABS: Protein, Urine 140.3 mg/dL (0.0-11.9)
[2023-02-23 13:08] LABS: Creatinine, Urine 49.93 mg/dL (30.0-125.0); Urine Protein/Creatinine Ratio 2.81
[2023-02-23] MEDS: SODIUM CHLOR 0.9% PF (SALINE LOCK) 10ML VIAL/SYR IV SCH ×2 (14:00→21:28)
[2023-02-23 19:30] VITALS: PULSE 76; RESP 18; O2SAT 97
[2023-02-24] VITALS (10 sets, daily range): BP systolic 93–120; BP diastolic 26–60; PULSE 60–73; RESP 9–17; TEMP 97.7–98; O2SAT 93–100
[2023-02-24] MEDS: ACCU-CHEK COMFORT CURVE STRIP VI SCH ×6 (00:28→20:00)
[2023-02-24] MEDS: PIPERACILLIN-TAZOB 3.375GM 100 ML IV SCH ×3 (02:42→17:53)
[2023-02-24] MEDS: InsuLIN REG 1unit/0.01ml Soln (100units/ml) SC SCH ×6 (04:00→20:00)
[2023-02-24 05:56] LABS: Basophils # (auto) 0 10 ^3/uL (0-0.2); Eosinophils # (auto) 0 10 ^3/uL (0-0.8); Lymphocytes # (auto) 0.4 10 ^3/uL (0.4-5.4); Neutrophils # (auto) 4.5 10 ^3/uL (1.6-8.6); Nucleated Red Blood Cells % 0.1 %
[2023-02-24 06:00] LABS: Basophils % (auto) 0.4 % (0.0-2.0); Eosinophils % (auto) 0.4 % (0.0-7.0); Hematocrit 29.8 % (41.0-53.0); Hemoglobin 9.4 g/dL (13.5-17.5); Lymphocytes % (auto) 6.4 % (10.0-50.0); Mean Corpuscular Hgb Conc. 31.5 g/dL (32.0-36.0); Mean Corpuscular Volume 76.2 fL (80.0-100.0); Monocytes # (auto) 0.8 10 ^3/uL (0-1.3); Monocytes % (auto) 13.7 % (0.0-12.0); Neutrophils % (auto) 79.1 % (37.0-80.0); Red Cell Distribution Width 19.4 % (11.8-14.3); White Blood Cell 5.6 10^3/uL (4.4-10.8)
[2023-02-24] MEDS: SODIUM CHLOR 0.9% PF (SALINE LOCK) 10ML VIAL/SYR IV SCH ×3 (06:00→22:33)
[2023-02-24 06:02] LABS: Alanine Aminotransferase 15 U/L (7-40); Albumin 2.8 g/dL (3.2-4.8); Alkaline Phosphatase 95 U/L (46-116); Anion Gap 8 (5-15); Aspartate Aminotransferase 32 U/L (13-40); BUN/Creatinine Ratio 17.5 (10.0-20.0); Blood Urea Nitrogen 14 mg/dL (9-23); Calcium 8.1 mg/dL (8.5-10.1); Carbon Dioxide 21 mmol/L (20-30); Chloride 105 mmol/L (98-107); Glucose 143 mg/dL (74-106); Potassium 3.9 mmol/L (3.5-5.1); Sodium 134 mmol/L (136-145)
[2023-02-24 06:03] LABS: Bilirubin, Total 0.8 mg/dL (0.2-1.0); Total Protein 4.9 g/dL (5.7-8.2)
[2023-02-24] MEDS: D5W/SOD CHLO 0.9% 1,000 ML IV SCH ×2 (08:00→11:30)
[2023-02-24] MEDS ORDERED: AMIODARONE HCL 200 MG TAB PO SCH (10:00)
[2023-02-24] MEDS: LINEZOLID 600MG/300ML 300 ML IV SCH ×2 (11:05→22:33)
[2023-02-24 17:12] LABS: Urine Bacteria NONE SEEN /hpf (None Seen); Urine Blood 2+ /uL (Negative); Urine Clarity HAZY (Clear); Urine Color Yellow (Yellow); Urine Protein, UAD 1+ (Negative); Urine Specific Gravity 1.019 (1.001-1.035); Urine Urobilinogen Normal (Negative); Urine WBC 229 /hpf (0 - 3)
[2023-02-25] VITALS (8 sets, daily range): BP systolic 103–124; BP diastolic 51–77; PULSE 58–76; RESP 10–12; TEMP 97.4–97.8; O2SAT 95–97
[2023-02-25] MEDS: D5W/SOD CHLO 0.9% 1,000 ML IV SCH ×2 (02:05→03:30)
[2023-02-25] MEDS: InsuLIN REG 1unit/0.01ml Soln (100units/ml) SC SCH ×5 (04:00→16:00)
[2023-02-25] MEDS: ACCU-CHEK COMFORT CURVE STRIP VI SCH ×5 (04:00→16:00)
[2023-02-25 05:29] LABS: Anion Gap 6 (5-15); Carbon Dioxide 23 mmol/L (20-30); Chloride 106 mmol/L (98-107); Potassium 3.6 mmol/L (3.5-5.1); Sodium 135 mmol/L (136-145)
[2023-02-25 05:30] LABS: Calcium 7.7 mg/dL (8.7-10.4)
[2023-02-25 05:34] LABS: Basophils # (auto) 0 10 ^3/uL (0-0.2); Eosinophils # (auto) 0.1 10 ^3/uL (0-0.8); Lymphocytes # (auto) 0.4 10 ^3/uL (0.4-5.4); Monocytes # (auto) 0.5 10 ^3/uL (0-1.3); Nucleated Red Blood Cells % 0.1 %; White Blood Cell 3.6 10^3/uL (4.4-10.8)
[2023-02-25 05:35] LABS: BUN/Creatinine Ratio 16.7 (10.0-20.0); Blood Urea Nitrogen 9 mg/dL (9-23); Glucose 109 mg/dL (74-106)
[2023-02-25 05:37] LABS: Basophils % (auto) 0.6 % (0.0-2.0); Eosinophils % (auto) 2.6 % (0.0-7.0); Hematocrit 27.7 % (41.0-53.0); Lymphocytes % (auto) 12.1 % (10.0-50.0); Mean Corpuscular Hgb Conc. 32.6 g/dL (32.0-36.0); Mean Corpuscular Volume 73.6 fL (80.0-100.0); Monocytes % (auto) 14.1 % (0.0-12.0); Neutrophils # (auto) 2.6 10 ^3/uL (1.6-8.6); Neutrophils % (auto) 70.6 % (37.0-80.0); Red Blood Cells 3.77 10^6/uL (4.5-5.90); Red Cell Distribution Width 19.1 % (11.8-14.3)
[2023-02-25] MEDS: SODIUM CHLOR 0.9% PF (SALINE LOCK) 10ML VIAL/SYR IV SCH ×2 (06:00→13:01)
[2023-02-25] MEDS: PIPERACILLIN-TAZOB 3.375GM 100 ML IV SCH (06:00)
[2023-02-25] MEDS ORDERED: ARTIFICIAL TEARS 15ml EACHEYE PRN (09:30)
[2023-02-25 10:35] LABS: Triglycerides 65 mg/dL (< 150)
[2023-02-25 10:36] LABS: LDL Cholesterol 52 mg/dL (< 100)
[2023-02-25 10:37] LABS: Cholesterol 89 mg/dL (< 200); HDL Cholesterol 24 mg/dL (40-59)
[2023-02-25] MEDS: LINEZOLID 600MG/300ML 300 ML IV SCH (10:42)
[2023-02-25 10:48] LABS: Erythrocyte Sedimentation Rate 8 mm/hr (0-20)
[2023-02-25] MEDS ORDERED: LIDOCAINE VISCOUS 2% 15ML UD MT ONE ×2 (11:45→12:35)
[2023-02-25] MEDS ORDERED: MIDAZOLAM HCL 2MG/2ML 2ml VIAL (1mg/ml) IV ONE ×2 (12:45→12:50)
[2023-02-25] MEDS ORDERED: fentaNYL CITRATE 100 MCG/2 ML VL IV ONE ×2 (12:45→12:50)
[2023-02-25] MEDS ORDERED: PIPERACILLIN-TAZOB 3.375GM 100 ML IV SCH (16:00)
== END 2023-02-25 18:15 | disposition home or self-care (01) | DRG 871 ==
LOC: EDBD 22:38 → ER 22:38 → TELE 02-23 06:36 → DOU IN ICU 02-24 03:49
PROVIDERS: ADMIT Internal Medicine; ATTEND Internal Medicine
PROC: B246ZZ4 Ultrasonography of Right and Left Heart, Transesophageal (ICD-10-PCS; principal; 2023-02-25)
DX: A41.89 Other specified sepsis (principal); G93.41 Metabolic encephalopathy; N17.0 Acute kidney failure with tubular necrosis; E87.1 Hypo-osmolality and hyponatremia; N39.0 Urinary tract infection, site not specified; D68.9 Coagulation defect, unspecified; F05 Delirium due to known physiological condition; K86.1 Other chronic pancreatitis; K86.2 Cyst of pancreas; E11.649 Type 2 diabetes mellitus with hypoglycemia without coma; D63.1 Anemia in chronic kidney disease; E87.5 Hyperkalemia; F03.90 Unspecified dementia, unspecified severity, without behavioral disturbance, psychotic disturbance, mood disturbance, and anxiety; K57.90 Diverticulosis of intestine, part unspecified, without perforation or abscess without bleeding; M47.9 Spondylosis, unspecified; N32.3 Diverticulum of bladder; I48.0 Paroxysmal atrial fibrillation; N18.9 Chronic kidney disease, unspecified; E11.22 Type 2 diabetes mellitus with diabetic chronic kidney disease; E78.5 Hyperlipidemia, unspecified; I12.9 Hypertensive chronic kidney disease with stage 1 through stage 4 chronic kidney disease, or unspecified chronic kidney disease; N40.0 Benign prostatic hyperplasia without lower urinary tract symptoms; Z79.4 Long term (current) use of insulin; Z85.07 Personal history of malignant neoplasm of pancreas; Z87.442 Personal history of urinary calculi; E11.65 Type 2 diabetes mellitus with hyperglycemia
CPT/HCPCS: 36415; 70450; 71045; 74176; 76775; 80048; 80053; 80061; 80320; 81001; 82140; 82150; 82306; 82570; 82962; 83036; 83605; 83690; 83735; 83880; 83970; 84100; 84156; 84300; 84443; 84484; 85025; 85610; 85652; 85730; 86141; 86301; 86850; 86900; 86901; 87040; 87081; 87086; 93005; 93312; 96361; 96365; 96367; 96375; C9113; G0378; J1815; J2250; J2543; J7042

== ENCOUNTER → 2023-03-04 | Day surgery (SDC) | payer BC ==
[2023-02-27 09:55] LABS: Basophils # (auto) 0 10 ^3/uL (0-0.2); Eosinophils # (auto) 0.1 10 ^3/uL (0-0.8); Lymphocytes # (auto) 0.5 10 ^3/uL (0.4-5.4); Mean Corpuscular Volume 74.3 fL (80.0-100.0); Monocytes # (auto) 0.4 10 ^3/uL (0-1.3); Neutrophils # (auto) 2.3 10 ^3/uL (1.6-8.6); White Blood Cell 3.4 10^3/uL (4.4-10.8)
[2023-02-27 09:56] LABS: Basophils % (auto) 0.5 % (0.0-2.0); Eosinophils % (auto) 1.9 % (0.0-7.0); Hematocrit 34.1 % (41.0-53.0); Hemoglobin 10.7 g/dL (13.5-17.5); Mean Corpuscular Hemoglobin 23.4 pg (28.0-32.0); Mean Corpuscular Hgb Conc. 31.5 g/dL (32.0-36.0); Monocytes % (auto) 12.8 % (0.0-12.0); Neutrophils % (auto) 68.8 % (37.0-80.0); Nucleated Red Blood Cells % 0.1 %; Red Blood Cells 4.59 10^6/uL (4.5-5.90); Red Cell Distribution Width 18.6 % (11.8-14.3)
[2023-02-27 10:09] LABS: INR 1.1 (0.9-1.15); Prothrombin Time 11.5 sec (9.3-11.8)
[2023-02-27 10:10] LABS: Urine Bacteria FEW /hpf (None Seen); Urine Blood 3+ /uL (Negative); Urine Clarity CLOUDY (Clear); Urine Color Yellow (Yellow); Urine Protein, UAD 1+ (Negative); Urine Specific Gravity 1.016 (1.001-1.035); Urine Urobilinogen Normal (Negative); Urine WBC 803 /hpf (0 - 3); Urine WBC Clumps PRESENT /hpf (None Seen)
[2023-02-27 10:27] LABS: Alanine Aminotransferase 15 U/L (7-40); Albumin 3.2 g/dL (3.2-4.8); Alkaline Phosphatase 108 U/L (46-116); Anion Gap 9 (5-15); Aspartate Aminotransferase 21 U/L (13-40); Calcium 8.5 mg/dL (8.5-10.1); Carbon Dioxide 25 mmol/L (20-30); Chloride 105 mmol/L (98-107); Glucose 149 mg/dL (74-106); Potassium 3.5 mmol/L (3.5-5.1); Sodium 139 mmol/L (136-145)
[2023-02-27 10:28] LABS: Bilirubin, Total 0.6 mg/dL (0.2-1.0); Total Protein 5.3 g/dL (5.7-8.2)
[2023-02-27 10:46] LABS: BUN/Creatinine Ratio 7.9 (10.0-20.0); Blood Urea Nitrogen < 5 mg/dL (9-23)
[~2023-03-04] VITALS: Ht 182.9 cm; Wt 65.8 kg
[~2023-03-04] MED LIST changes: -CHOL25CH3 PO; -CIPR-173 PO; +CIPROFLOXACIN 400MG/200ML 200 ML IV ONE; -CYAN-17 PO; +DOCU1CAP46 PO; +DexAMETHasone SOD PHOS 10MG/1ML VIAL INJ ONE; +FINA5TAB4 PO; +IOHEXOL 300 MG/ML 100ML BOTTLE IJ ONE; +LACT10SO3 PO; +LORA-1121 PO; +MELA3TAB27 PO; -MISC1LOZ3 PO; +ONDANSETRON HCL 4 MG/2 ML VIAL ONE; +OXYB5TAB10 PO; +PERCOT PO; -PROB1CHW27 PO; +PROPOFOL 10 MG/ML 20 ML IV ONE; +SENN1TAB14 PO; +ePHEDrine SULFATE 50 MG/ML AMP ONE; +fentaNYL CITRATE 100 MCG/2 ML VL ONE
[2023-03-04 15:00] VITALS: PULSE 65; RESP 15; TEMP 98.4; O2SAT 98
[2023-03-04 16:10] VITALS: BP 138/66; PULSE 66; RESP 11; O2SAT 97
== END | disposition home or self-care (01) ==
LOC: SUR 08:54
PROVIDERS: ATTEND Urology
DX: N20.0 Calculus of kidney (principal); N21.0 Calculus in bladder; N32.3 Diverticulum of bladder; E11.9 Type 2 diabetes mellitus without complications; Z79.84 Long term (current) use of oral hypoglycemic drugs; I10 Essential (primary) hypertension
CPT/HCPCS: 36415; 52353; 74018; 76000; 80053; 81001; 82962; 85025; 85610; 85730; 87086; 87088; 87186; 88300; J0744; J2405; J2704; J3010; Q9967; J1100

== ENCOUNTER 2023-04-03 19:36 | Inpatient (IN) | payer BC, MEDICARE, OTHER ==
[~2023-04-03] VITALS: Ht 182.9 cm; Wt 69.5 kg
[~2023-04-03 19:36] MED LIST changes: -CIPROFLOXACIN 400MG/200ML 200 ML IV ONE; -DexAMETHasone SOD PHOS 10MG/1ML VIAL INJ ONE; -IOHEXOL 300 MG/ML 100ML BOTTLE IJ ONE; -ONDANSETRON HCL 4 MG/2 ML VIAL ONE; -PROPOFOL 10 MG/ML 20 ML IV ONE; -ePHEDrine SULFATE 50 MG/ML AMP ONE; -fentaNYL CITRATE 100 MCG/2 ML VL ONE
[2023-04-03] MEDS ORDERED: HYDROmorphone HCL 2 MG/ML VL/or syr IV ONE (20:45)
[2023-04-03 21:53] LABS: Basophils # (auto) 0 10 ^3/uL (0-0.2); Eosinophils # (auto) 0.1 10 ^3/uL (0-0.8); Hemoglobin 10.6 g/dL (13.5-17.5); Lymphocytes # (auto) 0.9 10 ^3/uL (0.4-5.4); Monocytes % (auto) 11.3 % (0.0-12.0); Nucleated Red Blood Cells % 0.1 %; Red Cell Distribution Width 19.4 % (11.8-14.3); White Blood Cell 8.7 10^3/uL (4.4-10.8)
[2023-04-03 21:54] LABS: Basophils % (auto) 0.6 % (0.0-2.0); Eosinophils % (auto) 1.2 % (0.0-7.0); Hematocrit 33.3 % (41.0-53.0); Lymphocytes % (auto) 9.9 % (10.0-50.0); Mean Corpuscular Hemoglobin 23.2 pg (28.0-32.0); Mean Corpuscular Hgb Conc. 31.9 g/dL (32.0-36.0); Mean Corpuscular Volume 72.7 fL (80.0-100.0); Neutrophils # (auto) 6.7 10 ^3/uL (1.6-8.6); Red Blood Cells 4.58 10^6/uL (4.5-5.90)
[2023-04-03 22:10] LABS: Alanine Aminotransferase 20 U/L (7-40); Albumin 3.6 g/dL (3.2-4.8); Alkaline Phosphatase 183 U/L (46-116); Anion Gap 6 (5-15); Aspartate Aminotransferase 28 U/L (13-40); BUN/Creatinine Ratio 17.8 (10.0-20.0); Blood Urea Nitrogen 13 mg/dL (9-23); Calcium 8.9 mg/dL (8.5-10.1); Carbon Dioxide 24 mmol/L (20-30); Chloride 105 mmol/L (98-107); Glucose 118 mg/dL (74-106); Potassium 4.2 mmol/L (3.5-5.1); Sodium 135 mmol/L (136-145)
[2023-04-03 22:11] LABS: Bilirubin, Total 0.7 mg/dL (0.2-1.0); Total Protein 5.9 g/dL (5.7-8.2)
[2023-04-03] MEDS ORDERED: ACETAMINOPHEN 325 MG TAB PO PRN (23:15)
[2023-04-03] MEDS ORDERED: ONDANSETRON HCL 4 MG/2 ML VIAL IV PRN (23:15)
[2023-04-03] MEDS ORDERED: DOCUSATE SOD 100 MG CAP PO PRN (23:15)
[2023-04-03] MEDS ORDERED: DEXTROSE (50%) 50ML SYRG IV PRN (23:30)
[2023-04-03] MEDS ORDERED: D5W/LACTATED RINGERS 1,000 ML IV ONE (23:30)
[2023-04-03 23:49] LABS: % Iron Saturation 7.3 % (20-55)
[2023-04-03 23:55] LABS: INR 1.09 (0.9-1.15); Prothrombin Time 11.4 sec (9.3-11.8)
[2023-04-04] VITALS (8 sets, daily range): BP systolic 104–155; BP diastolic 57–73; PULSE 78–85; RESP 16–20; TEMP 97.8–98.8; O2SAT 93–97
[2023-04-04] MEDS: ACCU-CHEK COMFORT CURVE STRIP VI SCH ×4 (00:42→16:56)
[2023-04-04] MEDS: InsuLIN REG 1unit/0.01ml Soln (100units/ml) SC SCH ×4 (00:46→17:02)
[2023-04-04] MEDS: FERROUS SULFATE 300 MG/5 ML ORAL LIQ PO SCH ×2 (02:07→09:32)
[2023-04-04] MEDS: HYDROmorphone HCL 2 MG/ML VL/or syr IV PRN ×3 (04:48→21:10)
[2023-04-04] MEDS: FINASTERIDE 5 MG TAB PO SCH (06:00)
[2023-04-04] MEDS: PRIMIDONE 50 MG TAB PO SCH ×4 (06:00→20:55)
[2023-04-04] MEDS: SODIUM CHLOR 0.9% PF (SALINE LOCK) 10ML VIAL/SYR IV SCH ×3 (06:03→20:56)
[2023-04-04] MEDS: INSULIN LANTUS (GLARGINE) 1 /0.01ml (100units/ml) SC SCH (06:19)
[2023-04-04] MEDS: HYDROcodone-ACET 5/325MG TAB PO PRN ×2 (08:32→16:59)
[2023-04-04] MEDS: PANTOPRAZOLE 40 MG/10 ML VIAL INJ IV SCH (09:32)
[2023-04-04] MEDS: OXYBUTYNIN CHL 5 MG TAB PO SCH (09:33)
[2023-04-04] MEDS: DOCUSATE SOD 100 MG CAP PO SCH ×2 (09:33→20:55)
[2023-04-04] MEDS: SENNA 8.6 MG TAB PO SCH (09:34)
[2023-04-04] MEDS: TAMSULOSIN HYDROCHLORIDE 0.4 MG CAP PO SCH (09:34)
[2023-04-04] MEDS: IRON SUCROSE COMPLEX 100 ML IV SCH (13:39)
[2023-04-04] MEDS: MELATONIN 3 MG PO SCH (20:56)
[2023-04-05] MEDS: HYDROcodone-ACET 5/325MG TAB PO PRN (00:40)
[2023-04-05] MEDS: ACCU-CHEK COMFORT CURVE STRIP VI SCH ×5 (00:46→23:53)
[2023-04-05 01:04] LABS: Urine Epithelial Cast None Seen /hpf (<5)
[2023-04-05 01:28] LABS: Urine Bacteria MANY /hpf (None Seen); Urine Blood 2+ /uL (Negative); Urine Clarity CLOUDY (Clear); Urine Color Yellow (Yellow); Urine Mucus FEW (None Seen); Urine Protein, UAD 2+ (Negative); Urine Urobilinogen Normal (Negative); Urine WBC 4189 /hpf (0 - 3); Urine WBC Clumps PRESENT /hpf (None Seen)
[2023-04-05 05:00] VITALS: BP 129/68; PULSE 75; RESP 18; TEMP 97.9; O2SAT 95
[2023-04-05] MEDS: PRIMIDONE 50 MG TAB PO SCH ×4 (06:00→22:28)
[2023-04-05] MEDS: SODIUM CHLOR 0.9% PF (SALINE LOCK) 10ML VIAL/SYR IV SCH ×3 (06:07→22:08)
[2023-04-05] MEDS: InsuLIN REG 1unit/0.01ml Soln (100units/ml) SC SCH ×5 (06:07→23:59)
[2023-04-05] MEDS: INSULIN LANTUS (GLARGINE) 1 /0.01ml (100units/ml) SC SCH (06:08)
[2023-04-05] MEDS ORDERED: ceFAZolin 2 GM/D5W100ml 100 ML IV ONE (06:46)
[2023-04-05] MEDS: FINASTERIDE 5 MG TAB PO SCH (07:00)
[2023-04-05] MEDS ORDERED: ROCURONIUM 10MG/ML 10ML VIAL IV ONE (07:32)
[2023-04-05] MEDS ORDERED: fentaNYL CITRATE 100 MCG/2 ML VL ONE (07:32)
[2023-04-05] MEDS ORDERED: TRANEXAMIC ACID 20 ML ONE (08:16)
[2023-04-05] MEDS ORDERED: PHENYLEPHRINE HCL 10 MG/ML VL ONE (08:47)
[2023-04-05] MEDS ORDERED: ALBUMIN 5% 250 ML IV ONE (09:26)
[2023-04-05] MEDS: TAMSULOSIN HYDROCHLORIDE 0.4 MG CAP PO SCH (10:00)
[2023-04-05] MEDS: OXYBUTYNIN CHL 5 MG TAB PO SCH (10:00)
[2023-04-05] MEDS: PANTOPRAZOLE 40 MG/10 ML VIAL INJ IV SCH (10:00)
[2023-04-05] MEDS: SENNA 8.6 MG TAB PO SCH (10:00)
[2023-04-05] MEDS: DOCUSATE SOD 100 MG CAP PO SCH ×2 (10:00→22:28)
[2023-04-05 10:15] VITALS: O2SAT 100
[2023-04-05] MEDS ORDERED: HYDROcodone-ACET 10/325MG TAB PO PRN (10:15)
[2023-04-05] MEDS: LACTATED RINGER'S 1,000 ML IV SCH ×2 (10:15→20:04)
[2023-04-05] MEDS ORDERED: HYDROmorphone HCL 2 MG/ML VL/or syr IV ONE (10:30)
[2023-04-05] MEDS ORDERED: ONDANSETRON HCL 4 MG/2 ML VIAL IM ONE (10:30)
[2023-04-05 12:00] VITALS: BP 134/65; PULSE 95; RESP 16; TEMP 98.3; O2SAT 97
[2023-04-05] MEDS: IRON SUCROSE COMPLEX 100 ML IV SCH (12:04)
[2023-04-05] MEDS: ceFAZolin 2 GM/D5W100ml 100 ML IV SCH ×2 (15:30→22:29)
[2023-04-05 17:00] VITALS: BP 148/69; PULSE 65; RESP 18; TEMP 98.2; O2SAT 93
[2023-04-05 20:00] VITALS: PULSE 98; RESP 16; O2SAT 97
[2023-04-05 21:28] VITALS: BP 134/63; PULSE 98; RESP 16; TEMP 98.6; O2SAT 97
[2023-04-05] MEDS: MELATONIN 3 MG PO SCH (22:00)
[2023-04-05] MEDS ORDERED: MELATONIN 5 MG TAB ONE (22:38)
[2023-04-06] VITALS (7 sets, daily range): BP systolic 103–133; BP diastolic 50–67; PULSE 72–85; RESP 16–18; TEMP 97.9–98.6; O2SAT 93–97
[2023-04-06] MEDS: HYDROmorphone HCL 2 MG/ML VL/or syr IV PRN (03:16)
[2023-04-06] MEDS: InsuLIN REG 1unit/0.01ml Soln (100units/ml) SC SCH ×4 (06:00→23:33)
[2023-04-06 06:23] LABS: White Blood Cell 8.2 10^3/uL (4.4-10.8)
[2023-04-06 06:26] LABS: Hematocrit 24.3 % (41.0-53.0); Mean Corpuscular Hemoglobin 24.5 pg (28.0-32.0); Mean Corpuscular Volume 74.3 fL (80.0-100.0); Red Blood Cells 3.27 10^6/uL (4.5-5.90)
[2023-04-06 06:27] LABS: Red Cell Distribution Width 20.3 % (11.8-14.3)
[2023-04-06 06:29] LABS: Basophils % (manual) 0 (0.0-2.0); Blast Cells 0; Eosinophils % (manual) 0 (0-7); Metamyelocytes % 0; Myelocytes % 0; Promyelocytes % 0; Reactive Lymphocytes 0
[2023-04-06] MEDS: ACCU-CHEK COMFORT CURVE STRIP VI SCH ×4 (06:29→23:32)
[2023-04-06] MEDS: SODIUM CHLOR 0.9% PF (SALINE LOCK) 10ML VIAL/SYR IV SCH ×3 (06:29→21:43)
[2023-04-06] MEDS: LACTATED RINGER'S 1,000 ML IV SCH (06:29)
[2023-04-06] MEDS: PRIMIDONE 50 MG TAB PO SCH ×4 (06:29→21:38)
[2023-04-06] MEDS: INSULIN LANTUS (GLARGINE) 1 /0.01ml (100units/ml) SC SCH (06:29)
[2023-04-06] MEDS: FINASTERIDE 5 MG TAB PO SCH (06:30)
[2023-04-06 06:39] LABS: Chloride 101 mmol/L (98-107); Potassium 3.7 mmol/L (3.5-5.1); Sodium 131 mmol/L (136-145)
[2023-04-06 06:40] LABS: Anion Gap 6 (5-15); Carbon Dioxide 24 mmol/L (20-30)
[2023-04-06 06:41] LABS: Calcium 8.3 mg/dL (8.7-10.4)
[2023-04-06 06:46] LABS: BUN/Creatinine Ratio 30.9 (10.0-20.0); Blood Urea Nitrogen 17 mg/dL (9-23); Glucose 79 mg/dL (74-106)
[2023-04-06] MEDS: SENNA 8.6 MG TAB PO SCH (10:00)
[2023-04-06] MEDS: DOCUSATE SOD 100 MG CAP PO SCH ×2 (10:00→22:00)
[2023-04-06] MEDS: PANTOPRAZOLE 40 MG/10 ML VIAL INJ IV SCH (10:07)
[2023-04-06] MEDS: ENOXAPARIN SOD 40 MG/0.4 ML SYRINGE SC SCH (10:07)
[2023-04-06] MEDS: OXYBUTYNIN CHL 5 MG TAB PO SCH (10:07)
[2023-04-06] MEDS: TAMSULOSIN HYDROCHLORIDE 0.4 MG CAP PO SCH (10:08)
[2023-04-06] MEDS: IRON SUCROSE COMPLEX 100 ML IV SCH (13:40)
[2023-04-06] MEDS: HYDROcodone-ACET 10/325MG TAB PO PRN ×2 (14:31→21:38)
[2023-04-06 14:46] LABS: Band Neutrophils % (manual) 4; Lymphocytes % (manual) 3 (10.0-50.0); Monocytes % (manual) 14 (0-12)
[2023-04-06 14:47] LABS: Platelet Estimate Decreased
[2023-04-06 15:15] LABS: Urine Epithelial Cast None Seen /hpf (<5)
[2023-04-06 15:53] LABS: Urine Bacteria FEW /hpf (None Seen); Urine Blood TRACE /uL (Negative); Urine Clarity HAZY (Clear); Urine Color Yellow (Yellow); Urine Protein, UAD Negative (Negative); Urine Specific Gravity 1.014 (1.001-1.035); Urine Urobilinogen Normal (Negative); Urine WBC 116 /hpf (0 - 3)
[2023-04-06] MEDS: MELATONIN 3 MG PO SCH (21:43)
[2023-04-07] VITALS (11 sets, daily range): BP systolic 95–120; BP diastolic 52–73; PULSE 64–94; RESP 12–20; TEMP 97.6–98.9; O2SAT 95–99
[2023-04-07 05:27] LABS: White Blood Cell 3.9 10^3/uL (4.4-10.8)
[2023-04-07 05:30] LABS: Hematocrit 19.5 % (41.0-53.0); Mean Corpuscular Hemoglobin 24.7 pg (28.0-32.0); Mean Corpuscular Hgb Conc. 32.8 g/dL (32.0-36.0); Mean Corpuscular Volume 75.5 fL (80.0-100.0); Red Blood Cells 2.58 10^6/uL (4.5-5.90)
[2023-04-07] MEDS: SODIUM CHLOR 0.9% PF (SALINE LOCK) 10ML VIAL/SYR IV SCH ×3 (05:42→20:33)
[2023-04-07 05:47] LABS: Anion Gap 5 (5-15); Carbon Dioxide 24 mmol/L (20-30); Chloride 101 mmol/L (98-107); Potassium 3.3 mmol/L (3.5-5.1); Sodium 130 mmol/L (136-145)
[2023-04-07 05:49] LABS: Calcium 7.6 mg/dL (8.7-10.4)
[2023-04-07 05:53] LABS: BUN/Creatinine Ratio 25.8 (10.0-20.0); Blood Urea Nitrogen 16 mg/dL (9-23); Glucose 89 mg/dL (74-106)
[2023-04-07 05:57] LABS: Red Cell Distribution Width 20.3 % (11.8-14.3)
[2023-04-07 05:59] LABS: Hemoglobin 6.4 g/dL (13.5-17.5)
[2023-04-07 06:00] LABS: Band Neutrophils % (manual) 0; Blast Cells 0; Myelocytes % 0; Promyelocytes % 0; Reactive Lymphocytes 0
[2023-04-07] MEDS: ACCU-CHEK COMFORT CURVE STRIP VI SCH ×4 (06:30→23:19)
[2023-04-07] MEDS: PRIMIDONE 50 MG TAB PO SCH ×4 (06:30→23:29)
[2023-04-07] MEDS: InsuLIN REG 1unit/0.01ml Soln (100units/ml) SC SCH ×4 (06:30→23:22)
[2023-04-07] MEDS: INSULIN LANTUS (GLARGINE) 1 /0.01ml (100units/ml) SC SCH (06:41)
[2023-04-07] MEDS: FINASTERIDE 5 MG TAB PO SCH (06:41)
[2023-04-07 08:28] LABS: Lymphocytes % (manual) 12 (10.0-50.0)
[2023-04-07 08:29] LABS: Basophils % (manual) 1 (0.0-2.0); Eosinophils % (manual) 1 (0-7); Metamyelocytes % 2; Monocytes % (manual) 16 (0-12); Platelet Estimate Decreased
[2023-04-07] MEDS: ENOXAPARIN SOD 40 MG/0.4 ML SYRINGE SC SCH (10:00)
[2023-04-07] MEDS: TAMSULOSIN HYDROCHLORIDE 0.4 MG CAP PO SCH (12:36)
[2023-04-07] MEDS: PANTOPRAZOLE 40 MG/10 ML VIAL INJ IV SCH (12:36)
[2023-04-07] MEDS: OXYBUTYNIN CHL 5 MG TAB PO SCH (12:36)
[2023-04-07] MEDS: SENNA 8.6 MG TAB PO SCH (12:36)
[2023-04-07] MEDS: DOCUSATE SOD 100 MG CAP PO SCH ×2 (12:36→20:33)
[2023-04-07] MEDS: HYDROcodone-ACET 10/325MG TAB PO PRN ×3 (12:37→23:28)
[2023-04-07] MEDS: IRON SUCROSE COMPLEX 100 ML IV SCH (13:30)
[2023-04-07] MEDS: MELATONIN 3 MG PO SCH (22:00)
[2023-04-08 05:00] VITALS: BP 106/57; PULSE 71; RESP 18; TEMP 98.4; O2SAT 96
[2023-04-08] MEDS: ACCU-CHEK COMFORT CURVE STRIP VI SCH ×3 (05:18→18:19)
[2023-04-08] MEDS: SODIUM CHLOR 0.9% PF (SALINE LOCK) 10ML VIAL/SYR IV SCH ×3 (05:19→22:00)
[2023-04-08] MEDS: PRIMIDONE 50 MG TAB PO SCH ×4 (05:19→21:02)
[2023-04-08] MEDS: INSULIN LANTUS (GLARGINE) 1 /0.01ml (100units/ml) SC SCH (05:19)
[2023-04-08] MEDS: InsuLIN REG 1unit/0.01ml Soln (100units/ml) SC SCH ×3 (05:26→18:20)
[2023-04-08] MEDS: FINASTERIDE 5 MG TAB PO SCH (06:04)
[2023-04-08 06:57] LABS: Hematocrit 23.8 % (41.0-53.0); Mean Corpuscular Hemoglobin 25.9 pg (28.0-32.0)
[2023-04-08 07:01] LABS: Mean Corpuscular Hgb Conc. 33.5 g/dL (32.0-36.0); Mean Corpuscular Volume 77.3 fL (80.0-100.0); Red Blood Cells 3.08 10^6/uL (4.5-5.90); Red Cell Distribution Width 19.6 % (11.8-14.3)
[2023-04-08 07:07] LABS: Anion Gap 5 (5-15); Carbon Dioxide 24 mmol/L (20-30); Chloride 103 mmol/L (98-107); Potassium 3.4 mmol/L (3.5-5.1); Sodium 132 mmol/L (136-145)
[2023-04-08 07:09] LABS: Calcium 8.3 mg/dL (8.5-10.1)
[2023-04-08 07:14] LABS: BUN/Creatinine Ratio 22.6 (10.0-20.0); Blood Urea Nitrogen 12 mg/dL (9-23); Glucose 126 mg/dL (74-106)
[2023-04-08 07:31] LABS: Band Neutrophils % (manual) 0; Basophils % (manual) 0 (0.0-2.0); Blast Cells 0; Metamyelocytes % 0; Myelocytes % 0; Promyelocytes % 0; Reactive Lymphocytes 0
[2023-04-08 08:00] VITALS: BP 110/76; PULSE 64; RESP 16; TEMP 97.6; O2SAT 95
[2023-04-08 08:24] LABS: Eosinophils % (manual) 2 (0-7); Lymphocytes % (manual) 12 (10.0-50.0); Monocytes % (manual) 16 (0-12)
[2023-04-08 08:25] LABS: Platelet Estimate Decreased
[2023-04-08] MEDS ORDERED: POTASSIUM CHLORIDE 40 MEQ, LIDOCAINE 1% (LOCAL ANESTH.) 4 ML in SODIUM CHL 0.9% 250 ML IV ONE (09:45)
[2023-04-08] MEDS: cefTRIAXone 1GM/50ML D5W 50 ML IV SCH (11:28)
[2023-04-08] MEDS: OXYBUTYNIN CHL 5 MG TAB PO SCH (11:28)
[2023-04-08] MEDS: DOCUSATE SOD 100 MG CAP PO SCH ×2 (11:28→21:02)
[2023-04-08] MEDS: ENOXAPARIN SOD 40 MG/0.4 ML SYRINGE SC SCH (11:28)
[2023-04-08] MEDS: PANTOPRAZOLE 40 MG/10 ML VIAL INJ IV SCH (11:28)
[2023-04-08] MEDS: TAMSULOSIN HYDROCHLORIDE 0.4 MG CAP PO SCH (11:29)
[2023-04-08] MEDS: SENNA 8.6 MG TAB PO SCH (11:29)
[2023-04-08 12:00] VITALS: BP 111/66; PULSE 73; RESP 16; TEMP 97.7; O2SAT 95
[2023-04-08] MEDS: IRON SUCROSE COMPLEX 100 ML IV SCH (13:10)
[2023-04-08 13:59] LABS: Urine Epithelial Cast None Seen /hpf (<5)
[2023-04-08 14:41] LABS: Urine Bacteria NONE SEEN /hpf (None Seen); Urine Blood 2+ /uL (Negative); Urine Clarity CLOUDY (Clear); Urine Color Yellow (Yellow); Urine Protein, UAD 1+ (Negative); Urine Specific Gravity 1.019 (1.001-1.035); Urine WBC 2989 /hpf (0 - 3); Urine WBC Clumps PRESENT /hpf (None Seen); Urine pH 6.5 (5.0-8.0)
[2023-04-08 16:00] VITALS: BP 119/75; PULSE 84; RESP 16; TEMP 98.1; O2SAT 94
[2023-04-08 20:00] VITALS: BP 110/61; PULSE 71; RESP 16; TEMP 97.9; O2SAT 95
[2023-04-08] MEDS: HYDROcodone-ACET 10/325MG TAB PO PRN (20:59)
[2023-04-08 21:59] VITALS: BP 110/61; PULSE 71; RESP 16; TEMP 97.9; O2SAT 95
[2023-04-08] MEDS: MELATONIN 3 MG PO SCH (22:00)
[2023-04-09] MEDS: InsuLIN REG 1unit/0.01ml Soln (100units/ml) SC SCH ×5 (00:27→23:56)
[2023-04-09] MEDS: ACCU-CHEK COMFORT CURVE STRIP VI SCH ×5 (00:28→23:54)
[2023-04-09 05:00] VITALS: BP 109/62; PULSE 64; RESP 16; TEMP 98.2; O2SAT 96
[2023-04-09 05:14] LABS: Basophils # (auto) 0 10 ^3/uL (0-0.2); Eosinophils # (auto) 0.1 10 ^3/uL (0-0.8); Hemoglobin 8.4 g/dL (13.5-17.5); Lymphocytes # (auto) 0.6 10 ^3/uL (0.4-5.4); Neutrophils # (auto) 2.4 10 ^3/uL (1.6-8.6); White Blood Cell 3.8 10^3/uL (4.4-10.8)
[2023-04-09 05:18] LABS: Basophils % (auto) 0.9 % (0.0-2.0); Eosinophils % (auto) 3.2 % (0.0-7.0); Hematocrit 25.8 % (41.0-53.0); Lymphocytes % (auto) 14.5 % (10.0-50.0); Mean Corpuscular Hemoglobin 26.1 pg (28.0-32.0); Mean Corpuscular Hgb Conc. 32.6 g/dL (32.0-36.0); Monocytes # (auto) 0.6 10 ^3/uL (0-1.3); Monocytes % (auto) 17.1 % (0.0-12.0); Neutrophils % (auto) 64.3 % (37.0-80.0); Red Blood Cells 3.22 10^6/uL (4.5-5.90)
[2023-04-09 05:24] LABS: Chloride 105 mmol/L (98-107); Sodium 135 mmol/L (136-145)
[2023-04-09 05:25] LABS: Anion Gap 7 (5-15); Calcium 7.8 mg/dL (8.7-10.4); Carbon Dioxide 23 mmol/L (20-30)
[2023-04-09 05:30] LABS: BUN/Creatinine Ratio 21.1 (10.0-20.0); Blood Urea Nitrogen 12 mg/dL (9-23); Glucose 147 mg/dL (74-106); Magnesium 1.5 mg/dL (1.6-2.6); Red Cell Distribution Width 20.9 % (11.8-14.3)
[2023-04-09] MEDS: PRIMIDONE 50 MG TAB PO SCH ×4 (06:02→21:30)
[2023-04-09] MEDS: FINASTERIDE 5 MG TAB PO SCH (06:02)
[2023-04-09] MEDS: SODIUM CHLOR 0.9% PF (SALINE LOCK) 10ML VIAL/SYR IV SCH ×3 (06:04→21:30)
[2023-04-09] MEDS: INSULIN LANTUS (GLARGINE) 1 /0.01ml (100units/ml) SC SCH (06:38)
[2023-04-09] MEDS: PANTOPRAZOLE 40 MG/10 ML VIAL INJ IV SCH (08:58)
[2023-04-09] MEDS: ENOXAPARIN SOD 40 MG/0.4 ML SYRINGE SC SCH (08:58)
[2023-04-09] MEDS: TAMSULOSIN HYDROCHLORIDE 0.4 MG CAP PO SCH (08:59)
[2023-04-09] MEDS: SENNA 8.6 MG TAB PO SCH (08:59)
[2023-04-09 09:00] VITALS: BP 108/52; PULSE 69; RESP 19; TEMP 98.4; O2SAT 96
[2023-04-09] MEDS: DOCUSATE SOD 100 MG CAP PO SCH ×2 (09:00→21:30)
[2023-04-09] MEDS: OXYBUTYNIN CHL 5 MG TAB PO SCH (09:00)
[2023-04-09] MEDS: cefTRIAXone 1GM/50ML D5W 50 ML IV SCH (09:00)
[2023-04-09 13:00] VITALS: BP 125/66; PULSE 71; RESP 18; TEMP 97.9; O2SAT 95
[2023-04-09] MEDS: IRON SUCROSE COMPLEX 100 ML IV SCH (13:36)
[2023-04-09] MEDS: HYDROcodone-ACET 10/325MG TAB PO PRN ×2 (14:37→21:35)
[2023-04-09 17:08] VITALS: BP 130/65; PULSE 76; RESP 19; TEMP 98.1; O2SAT 100
[2023-04-09 20:00] VITALS: PULSE 73; RESP 18; O2SAT 97
[2023-04-09] MEDS: MELATONIN 3 MG PO SCH (21:36)
[2023-04-09 22:00] VITALS: BP 103/63; PULSE 73; RESP 18; TEMP 98.6; O2SAT 97
[2023-04-10] VITALS (7 sets, daily range): BP systolic 105–120; BP diastolic 52–66; PULSE 58–68; RESP 16–19; TEMP 97.4–98.1; O2SAT 96–100
[2023-04-10] MEDS: SODIUM CHLOR 0.9% PF (SALINE LOCK) 10ML VIAL/SYR IV SCH ×3 (06:21→21:49)
[2023-04-10] MEDS: InsuLIN REG 1unit/0.01ml Soln (100units/ml) SC SCH ×4 (06:22→23:24)
[2023-04-10] MEDS: INSULIN LANTUS (GLARGINE) 1 /0.01ml (100units/ml) SC SCH (06:23)
[2023-04-10] MEDS: ACCU-CHEK COMFORT CURVE STRIP VI SCH ×4 (06:23→23:20)
[2023-04-10] MEDS: FINASTERIDE 5 MG TAB PO SCH (06:23)
[2023-04-10] MEDS: PRIMIDONE 50 MG TAB PO SCH ×4 (06:32→21:48)
[2023-04-10] MEDS: DOCUSATE SOD 100 MG CAP PO SCH ×2 (10:24→21:48)
[2023-04-10] MEDS: PANTOPRAZOLE 40 MG/10 ML VIAL INJ IV SCH (10:24)
[2023-04-10] MEDS: cefTRIAXone 1GM/50ML D5W 50 ML IV SCH (10:24)
[2023-04-10] MEDS: SENNA 8.6 MG TAB PO SCH (10:25)
[2023-04-10] MEDS: TAMSULOSIN HYDROCHLORIDE 0.4 MG CAP PO SCH (10:25)
[2023-04-10] MEDS: OXYBUTYNIN CHL 5 MG TAB PO SCH (10:25)
[2023-04-10] MEDS: ENOXAPARIN SOD 40 MG/0.4 ML SYRINGE SC SCH (10:26)
[2023-04-10] MEDS: HYDROcodone-ACET 10/325MG TAB PO PRN ×2 (10:36→15:43)
[2023-04-10] MEDS: IRON SUCROSE COMPLEX 100 ML IV SCH (11:53)
[2023-04-10] MEDS: MELATONIN 3 MG PO SCH (21:49)
[2023-04-11] MEDS: HYDROcodone-ACET 10/325MG TAB PO PRN ×2 (00:13→11:01)
[2023-04-11 05:00] VITALS: BP 101/49; PULSE 61; RESP 17; TEMP 97.6; O2SAT 96
[2023-04-11] MEDS: InsuLIN REG 1unit/0.01ml Soln (100units/ml) SC SCH ×3 (06:00→18:00)
[2023-04-11] MEDS: ACCU-CHEK COMFORT CURVE STRIP VI SCH ×3 (06:00→18:00)
[2023-04-11] MEDS: SODIUM CHLOR 0.9% PF (SALINE LOCK) 10ML VIAL/SYR IV SCH ×2 (06:00→14:00)
[2023-04-11] MEDS: PRIMIDONE 50 MG TAB PO SCH ×3 (06:00→18:00)
[2023-04-11] MEDS: FINASTERIDE 5 MG TAB PO SCH (06:20)
[2023-04-11] MEDS: INSULIN LANTUS (GLARGINE) 1 /0.01ml (100units/ml) SC SCH (06:40)
[2023-04-11 08:00] VITALS: BP 125/65; PULSE 63; RESP 18; TEMP 97.6; O2SAT 96
[2023-04-11 08:57] VITALS: BP 109/51; PULSE 60; RESP 16; TEMP 97.4; O2SAT 100
[2023-04-11] MEDS: TAMSULOSIN HYDROCHLORIDE 0.4 MG CAP PO SCH (10:00)
[2023-04-11] MEDS: cefTRIAXone 1GM/50ML D5W 50 ML IV SCH (10:54)
[2023-04-11] MEDS: ENOXAPARIN SOD 40 MG/0.4 ML SYRINGE SC SCH (10:55)
[2023-04-11] MEDS: DOCUSATE SOD 100 MG CAP PO SCH (10:55)
[2023-04-11] MEDS: SENNA 8.6 MG TAB PO SCH (10:55)
[2023-04-11] MEDS: PANTOPRAZOLE 40 MG/10 ML VIAL INJ IV SCH (10:55)
[2023-04-11] MEDS: OXYBUTYNIN CHL 5 MG TAB PO SCH (10:55)
[2023-04-11] MEDS: IRON SUCROSE COMPLEX 100 ML IV SCH (12:00)
[2023-04-11 13:00] VITALS: BP 116/62; PULSE 59; RESP 16; TEMP 97.6; O2SAT 94
[2023-04-11 17:00] VITALS: BP 104/56; PULSE 69; RESP 17; TEMP 98.4; O2SAT 100
[2023-04-11 17:54] VITALS: BP 126/56; PULSE 65; RESP 18; TEMP 98.6
== END 2023-04-11 18:00 | DRG 481 ==
LOC: ER 19:36 → EDBD 19:36 → EDSEX 19:36 → OVERFLOW 23:15 → EAST 04-04 01:03
PROVIDERS: ADMIT Internal Medicine; ATTEND Nurse Practitioner Acute Care
PROC: 30233N1 Transfusion of Nonautologous Red Blood Cells into Peripheral Vein, Percutaneous Approach (ICD-10-PCS; 2023-04-05)
PROC: 0QS604Z Reposition Right Upper Femur with Internal Fixation Device, Open Approach (ICD-10-PCS; principal; 2023-04-05 07:34)
DX: S72.141A Displaced intertrochanteric fracture of right femur, initial encounter for closed fracture (principal); D62 Acute posthemorrhagic anemia; K59.00 Constipation, unspecified; W01.0XXA Fall on same level from slipping, tripping and stumbling without subsequent striking against object, initial encounter; D50.9 Iron deficiency anemia, unspecified; F03.90 Unspecified dementia, unspecified severity, without behavioral disturbance, psychotic disturbance, mood disturbance, and anxiety; E11.9 Type 2 diabetes mellitus without complications; I10 Essential (primary) hypertension; N13.9 Obstructive and reflux uropathy, unspecified; N20.0 Calculus of kidney; N32.9 Bladder disorder, unspecified; N32.3 Diverticulum of bladder; C67.9 Malignant neoplasm of bladder, unspecified; S70.11XA Contusion of right thigh, initial encounter; Z87.442 Personal history of urinary calculi; Y93.89 Activity, other specified; Y92.89 Other specified places as the place of occurrence of the external cause; Y99.8 Other external cause status; Z82.49 Family history of ischemic heart disease and other diseases of the circulatory system
CPT/HCPCS: 36415; 72192; 73502; 76000; 80048; 80053; 81001; 82728; 82962; 83540; 83550; 83605; 83735; 84484; 85007; 85025; 85027; 85610; 86850; 86900; 86901; 86920; 87081; 87086; 93005; 93306; 96374; 97110; 97116; 97163; 97530; C9113; G0378; J1756; J1815; J2001; J2405

== ENCOUNTER 2023-07-01 06:05 | Day surgery (SDC) | payer BC ==
[2023-06-26 10:57] LABS: Basophils # (auto) 0 10 ^3/uL (0-0.2); Basophils % (auto) 0.9 % (0.0-2.0); Eosinophils # (auto) 0.1 10 ^3/uL (0-0.8); Eosinophils % (auto) 2.8 % (0.0-7.0); Hematocrit 39.8 % (41.0-53.0); Hemoglobin 13.1 g/dL (13.5-17.5); Lymphocytes # (auto) 0.8 10 ^3/uL (0.4-5.4); Lymphocytes % (auto) 16.2 % (10.0-50.0); Mean Corpuscular Hemoglobin 28.1 pg (28.0-32.0); Mean Corpuscular Hgb Conc. 32.8 g/dL (32.0-36.0); Mean Corpuscular Volume 85.8 fL (80.0-100.0); Monocytes # (auto) 0.8 10 ^3/uL (0-1.3); Monocytes % (auto) 15.7 % (0.0-12.0); Neutrophils # (auto) 3.2 10 ^3/uL (1.6-8.6); Neutrophils % (auto) 64.4 % (37.0-80.0); Nucleated Red Blood Cells % 0.1 %; Red Blood Cells 4.64 10^6/uL (4.5-5.90); Red Cell Distribution Width 18.4 % (11.8-14.3)
[2023-06-26 11:09] LABS: Urine Bacteria MOD /hpf (None Seen); Urine Blood 3+ /uL (Negative); Urine Clarity Ex.Turbid (Clear); Urine Color Light-Brown (Yellow); Urine Protein, UAD 2+ (Negative); Urine Specific Gravity 1.014 (1.001-1.035); Urine Urobilinogen Normal (Negative); Urine WBC 1899 /hpf (0 - 3); Urine WBC Clumps PRESENT /hpf (None Seen)
[2023-06-26 11:18] LABS: INR 1.11 (0.9-1.15); Partial Thromboplastin Time 26.2 SEC (24.5-34.5); Prothrombin Time 11.6 sec (9.3-11.8)
[2023-06-26 11:27] LABS: Alanine Aminotransferase 37 U/L (7-40); Albumin 3.4 g/dL (3.2-4.8); Alkaline Phosphatase 163 U/L (46-116); Anion Gap 6 (5-15); Aspartate Aminotransferase 33 U/L (13-40); BUN/Creatinine Ratio 16.4 (10.0-20.0); Blood Urea Nitrogen 12 mg/dL (9-23); Calcium 9.2 mg/dL (8.5-10.1); Carbon Dioxide 23 mmol/L (20-30); Chloride 103 mmol/L (98-107); Glucose 232 mg/dL (74-106); Potassium 4.3 mmol/L (3.5-5.1); Sodium 132 mmol/L (136-145)
[2023-06-26 11:28] LABS: Bilirubin, Total 0.6 mg/dL (0.2-1.0); Total Protein 5.6 g/dL (5.7-8.2)
[~2023-07-01] VITALS: Ht 182.9 cm; Wt 65.8 kg
[~2023-07-01 06:05] MED LIST changes: +AMIO100T3 OR; -LORA-1121 PO; -OXYB5TAB10 PO; +OXYB5TAB14 PO; -PERCOT PO; -TAMS-35 PO
[2023-07-01] MEDS ORDERED: CIPROFLOXACIN 400MG/200ML 200 ML IV ONE (07:23)
[2023-07-01] MEDS ORDERED: LIDOCAINE 2% JELLY 11ml (GLYDO) ONE (07:28)
[2023-07-01] MEDS ORDERED: fentaNYL CITRATE 100 MCG/2 ML VL ONE (07:39)
[2023-07-01] MEDS ORDERED: MIDAZOLAM HCL 2MG/2ML 2ml VIAL (1mg/ml) ONE (07:39)
[2023-07-01] MEDS ORDERED: ONDANSETRON HCL 4 MG/2 ML VIAL ONE (07:43)
[2023-07-01] MEDS ORDERED: LIDOCAINE 2% (LOCAL ANESTH.) PF 5ml SDV ONE (07:43)
[2023-07-01] MEDS ORDERED: PROPOFOL 10 MG/ML 20 ML IV ONE (07:43)
[2023-07-01] MEDS ORDERED: ePHEDrine SULFATE 50 MG/ML AMP ONE (09:11)
[2023-07-01 10:35] VITALS: BP 140/76; PULSE 56; RESP 11; O2SAT 95
== END 2023-07-01 10:45 | disposition home or self-care (01) ==
LOC: SUR 06:05
PROVIDERS: ATTEND Urology
DX: N20.0 Calculus of kidney (principal); N32.89 Other specified disorders of bladder; N32.3 Diverticulum of bladder; N30.20 Other chronic cystitis without hematuria; N30.00 Acute cystitis without hematuria; E11.9 Type 2 diabetes mellitus without complications; K76.6 Portal hypertension; N40.0 Benign prostatic hyperplasia without lower urinary tract symptoms; Z85.07 Personal history of malignant neoplasm of pancreas; Z82.49 Family history of ischemic heart disease and other diseases of the circulatory system; Z79.4 Long term (current) use of insulin; Z98.890 Other specified postprocedural states; Z79.899 Other long term (current) drug therapy
CPT/HCPCS: 36415; 50590; 52204; 74176; 80053; 81001; 82360; 82962; 85025; 85610; 85730; 87086; 88300; 88305; 88342; C1769; J0744; J2001; J2250; J2405; J2704; J3010; J7030

== ENCOUNTER 2023-07-15 12:25 | Inpatient (IN) | payer BC ==
[~2023-07-15] VITALS: Ht 182.9 cm; Wt 61.9 kg
[2023-07-15] MEDS: cefTRIAXone 1GM/50ML D5W 50 ML IV ONE (13:15)
[2023-07-15 13:32] LABS: Basophils # (auto) 0 10 ^3/uL (0-0.2); Basophils % (auto) 0.3 % (0.0-2.0); Eosinophils # (auto) 0 10 ^3/uL (0-0.8); Eosinophils % (auto) 0.4 % (0.0-7.0); Hemoglobin 13.8 g/dL (13.5-17.5); Lymphocytes # (auto) 0.7 10 ^3/uL (0.4-5.4); Mean Corpuscular Hemoglobin 28.1 pg (28.0-32.0); Mean Corpuscular Hgb Conc. 32.8 g/dL (32.0-36.0); Mean Corpuscular Volume 85.6 fL (80.0-100.0); Monocytes # (auto) 0.7 10 ^3/uL (0-1.3); Monocytes % (auto) 10.7 % (0.0-12.0); Neutrophils # (auto) 5.1 10 ^3/uL (1.6-8.6); Neutrophils % (auto) 78.6 % (37.0-80.0); Nucleated Red Blood Cells % 0.1 %; Red Blood Cells 4.91 10^6/uL (4.5-5.90); Red Cell Distribution Width 16.5 % (11.8-14.3); White Blood Cell 6.5 10^3/uL (4.4-10.8)
[2023-07-15 13:57] LABS: Chloride 108 mmol/L (98-107); Sodium 140 mmol/L (136-145)
[2023-07-15 13:58] LABS: Anion Gap 5 (5-15); Calcium 9.1 mg/dL (8.7-10.4); Carbon Dioxide 27 mmol/L (20-30)
[2023-07-15 14:03] LABS: Blood Urea Nitrogen 22 mg/dL (9-23); Glucose 149 mg/dL (74-106)
[2023-07-15 14:47] VITALS: PULSE 60; RESP 11; O2SAT 94
[2023-07-15] MEDS ORDERED: DOCUSATE SOD 100 MG CAP PO PRN (16:15)
[2023-07-15] MEDS ORDERED: ONDANSETRON HCL 4 MG/2 ML VIAL IV PRN (16:15)
[2023-07-15 16:35] LABS: Urine Bacteria FEW /hpf (None Seen); Urine Blood 3+ /uL (Negative); Urine Budding Yeast FEW /hpf (None Seen); Urine Clarity Ex.Turbid (Clear); Urine Color Light-Orange (Yellow); Urine Mucus FEW (None Seen); Urine Protein, UAD 2+ (Negative); Urine Specific Gravity 1.017 (1.001-1.035); Urine Urobilinogen Normal (Negative); Urine WBC 1395 /hpf (0 - 3); Urine WBC Clumps PRESENT /hpf (None Seen)
[2023-07-15] MEDS: SODIUM CHLORIDE 0.9% 1,000 ML IV SCH (16:36)
[2023-07-15] MEDS: PRIMIDONE 50 MG TAB PO SCH (18:47)
[2023-07-15] MEDS: LACTULOSE 20Gm/30ML SOLN PO SCH (18:47)
[2023-07-15 21:25] VITALS: PULSE 63; RESP 12; O2SAT 94
[2023-07-15] MEDS: MELATONIN 3 MG PO SCH (22:00)
[2023-07-15] MEDS: SENNA 8.6 MG TAB PO SCH (22:10)
[2023-07-15] MEDS: DOCUSATE SOD 100 MG CAP PO SCH (22:10)
[2023-07-16 05:40] LABS: Basophils # (auto) 0 10 ^3/uL (0-0.2); Basophils % (auto) 0.6 % (0.0-2.0); Eosinophils # (auto) 0.1 10 ^3/uL (0-0.8); Eosinophils % (auto) 1.6 % (0.0-7.0); Hematocrit 36.2 % (41.0-53.0); Hemoglobin 12.2 g/dL (13.5-17.5); Lymphocytes # (auto) 0.8 10 ^3/uL (0.4-5.4); Lymphocytes % (auto) 14.4 % (10.0-50.0); Mean Corpuscular Hemoglobin 28.9 pg (28.0-32.0); Mean Corpuscular Hgb Conc. 33.8 g/dL (32.0-36.0); Mean Corpuscular Volume 85.5 fL (80.0-100.0); Monocytes # (auto) 0.6 10 ^3/uL (0-1.3); Monocytes % (auto) 11.6 % (0.0-12.0); Neutrophils % (auto) 71.8 % (37.0-80.0); Red Blood Cells 4.24 10^6/uL (4.5-5.90); Red Cell Distribution Width 16.3 % (11.8-14.3); White Blood Cell 5.6 10^3/uL (4.4-10.8)
[2023-07-16 05:54] LABS: Alanine Aminotransferase 12 U/L (7-40); Albumin 3.1 g/dL (3.2-4.8); Alkaline Phosphatase 139 U/L (46-116); Anion Gap 5 (5-15); Aspartate Aminotransferase 29 U/L (13-40); BUN/Creatinine Ratio 22.1 (10.0-20.0); Bilirubin, Total 0.7 mg/dL (0.2-1.0); Blood Urea Nitrogen 15 mg/dL (9-23); Calcium 8.5 mg/dL (8.5-10.1); Carbon Dioxide 26 mmol/L (20-30); Chloride 109 mmol/L (98-107); Glucose 82 mg/dL (74-106); Sodium 140 mmol/L (136-145); Total Protein 5.4 g/dL (5.7-8.2)
[2023-07-16] MEDS: FINASTERIDE 5 MG TAB PO SCH (06:23)
[2023-07-16 07:54] VITALS: PULSE 63; RESP 12; O2SAT 94
[2023-07-16 08:30] VITALS: BP_SYST 104; BP_SYST 127; BP_DIAS 61; BP_DIAS 85; PULSE 63; PULSE 76; RESP 16; RESP 19; TEMP 97.5; TEMP 97.6; O2SAT 92; O2SAT 95
[2023-07-16] MEDS: cefTRIAXone 1GM/50ML D5W 50 ML IV SCH (12:09)
[2023-07-16] MEDS: AMIODARONE HCL 200 MG TAB PO SCH (12:10)
[2023-07-16] MEDS: OXYBUTYNIN CHL 5 MG TAB PO SCH (12:10)
[2023-07-16 12:30] VITALS: BP 108/57; PULSE 59; RESP 18; TEMP 97.8; O2SAT 95
[2023-07-16] MEDS: MORPHINE SULFATE INJ 2 MG/ml SYRG IV PRN (13:43)
[2023-07-16 17:00] VITALS: BP 126/57; PULSE 61; RESP 19; TEMP 97.7; O2SAT 95
[2023-07-16 20:00] VITALS: PULSE 64; RESP 20; O2SAT 93
[2023-07-16] MEDS: TAMSULOSIN HYDROCHLORIDE 0.4 MG CAP PO SCH (20:12)
[2023-07-16 21:00] VITALS: BP 123/59; PULSE 64; RESP 20; TEMP 97.6; O2SAT 93
[2023-07-17 01:00] VITALS: BP 119/71; PULSE 67; RESP 20; TEMP 98; O2SAT 94
[2023-07-17 05:00] VITALS: BP 124/72; PULSE 53; RESP 20; TEMP 98; O2SAT 93
[2023-07-17 07:14] LABS: Chloride 102 mmol/L (98-107); Potassium 4.5 mmol/L (3.5-5.1)
[2023-07-17 07:15] LABS: Anion Gap 6 (5-15); Calcium 8.6 mg/dL (8.5-10.1); Carbon Dioxide 24 mmol/L (20-30)
[2023-07-17 07:18] LABS: Basophils # (auto) 0 10 ^3/uL (0-0.2); Basophils % (auto) 0.6 % (0.0-2.0); Eosinophils # (auto) 0.1 10 ^3/uL (0-0.8); Eosinophils % (auto) 1.1 % (0.0-7.0); Hematocrit 37.7 % (41.0-53.0); Hemoglobin 12.4 g/dL (13.5-17.5); Lymphocytes # (auto) 0.6 10 ^3/uL (0.4-5.4); Lymphocytes % (auto) 12.9 % (10.0-50.0); Mean Corpuscular Hemoglobin 28.7 pg (28.0-32.0); Monocytes # (auto) 0.7 10 ^3/uL (0-1.3); Monocytes % (auto) 13.5 % (0.0-12.0); Neutrophils # (auto) 3.6 10 ^3/uL (1.6-8.6); Neutrophils % (auto) 71.9 % (37.0-80.0); Red Blood Cells 4.33 10^6/uL (4.5-5.90); Red Cell Distribution Width 16.1 % (11.8-14.3)
[2023-07-17 07:20] LABS: BUN/Creatinine Ratio 12.5 (10.0-20.0); Blood Urea Nitrogen 10 mg/dL (9-23)
[2023-07-17 07:32] LABS: Sodium 132 mmol/L (136-145)
[2023-07-17 07:36] LABS: Glucose 444 mg/dL (74-106)
[2023-07-17] MEDS ORDERED: DEXTROSE (50%) 50ML SYRG IV PRN (08:00)
[2023-07-17] MEDS: INSULIN LANTUS (GLARGINE) 1 /0.01ml (100units/ml) SC SCH (08:23)
[2023-07-17 09:00] VITALS: BP 123/66; PULSE 62; RESP 18; TEMP 97.5; O2SAT 94
[2023-07-17] MEDS: InsuLIN REG 1unit/0.01ml Soln (100units/ml) SC SCH ×2 (09:53→22:00)
[2023-07-17] MEDS: ACCU-CHEK COMFORT CURVE STRIP VI SCH (09:53)
[2023-07-17] MEDS: InsuLIN REG 1unit/0.01ml Soln (100units/ml) SC ONE (12:48)
[2023-07-17 13:00] VITALS: BP 113/63; PULSE 61; RESP 16; TEMP 97.5; O2SAT 94
[2023-07-17 17:00] VITALS: BP 112/59; PULSE 54; RESP 16; TEMP 97.7; O2SAT 94
[2023-07-17 21:00] VITALS: BP 98/57; PULSE 69; RESP 18; TEMP 98; O2SAT 98
[2023-07-18] VITALS (8 sets, daily range): BP systolic 103–127; BP diastolic 54–68; PULSE 57–82; RESP 15–18; TEMP 36.4; O2SAT 95–98
[2023-07-19] VITALS (8 sets, daily range): BP systolic 101–142; BP diastolic 59–71; PULSE 58–68; RESP 14–20; TEMP 36.8; O2SAT 93–99
[2023-07-19 07:55] LABS: Basophils # (auto) 0 10 ^3/uL (0-0.2); Basophils % (auto) 0.5 % (0.0-2.0); Eosinophils # (auto) 0.1 10 ^3/uL (0-0.8); Eosinophils % (auto) 1.5 % (0.0-7.0); Hematocrit 33.7 % (41.0-53.0); Hemoglobin 11.1 g/dL (13.5-17.5); Lymphocytes # (auto) 0.6 10 ^3/uL (0.4-5.4); Lymphocytes % (auto) 12.8 % (10.0-50.0); Mean Corpuscular Hemoglobin 28.3 pg (28.0-32.0); Mean Corpuscular Volume 85.6 fL (80.0-100.0); Monocytes # (auto) 0.5 10 ^3/uL (0-1.3); Monocytes % (auto) 10.3 % (0.0-12.0); Neutrophils # (auto) 3.5 10 ^3/uL (1.6-8.6); Neutrophils % (auto) 74.9 % (37.0-80.0); Nucleated Red Blood Cells % 0.1 %; Red Blood Cells 3.93 10^6/uL (4.5-5.90); Red Cell Distribution Width 15.8 % (11.8-14.3); White Blood Cell 4.7 10^3/uL (4.4-10.8)
[2023-07-19 08:03] LABS: Chloride 106 mmol/L (98-107); Potassium 4.1 mmol/L (3.5-5.1); Sodium 136 mmol/L (136-145)
[2023-07-19 08:04] LABS: Anion Gap 4 (5-15); Carbon Dioxide 26 mmol/L (20-30)
[2023-07-19 08:05] LABS: Calcium 8.1 mg/dL (8.5-10.1)
[2023-07-19 08:09] LABS: BUN/Creatinine Ratio 10.3 (10.0-20.0); Blood Urea Nitrogen 6 mg/dL (9-23)
[2023-07-19 08:10] LABS: Glucose 130 mg/dL (74-106)
[2023-07-20 01:00] VITALS: BP 112/68; PULSE 67; RESP 16; TEMP 97.7; O2SAT 97
[2023-07-20 04:00] VITALS: BP 112/62; PULSE 68; RESP 16; TEMP 97.7; O2SAT 96
[2023-07-20 07:10] LABS: Basophils # (auto) 0 10 ^3/uL (0-0.2); Basophils % (auto) 0.4 % (0.0-2.0); Eosinophils # (auto) 0.1 10 ^3/uL (0-0.8); Eosinophils % (auto) 1.4 % (0.0-7.0); Hematocrit 32.7 % (41.0-53.0); Hemoglobin 11.2 g/dL (13.5-17.5); Lymphocytes # (auto) 0.7 10 ^3/uL (0.4-5.4); Lymphocytes % (auto) 13.3 % (10.0-50.0); Mean Corpuscular Hemoglobin 29.1 pg (28.0-32.0); Mean Corpuscular Hgb Conc. 34.3 g/dL (32.0-36.0); Mean Corpuscular Volume 84.7 fL (80.0-100.0); Monocytes # (auto) 0.6 10 ^3/uL (0-1.3); Monocytes % (auto) 11.5 % (0.0-12.0); Neutrophils # (auto) 3.9 10 ^3/uL (1.6-8.6); Neutrophils % (auto) 73.4 % (37.0-80.0); Red Blood Cells 3.86 10^6/uL (4.5-5.90); Red Cell Distribution Width 15.6 % (11.8-14.3); White Blood Cell 5.3 10^3/uL (4.4-10.8)
[2023-07-20 07:30] LABS: Anion Gap 7 (5-15); Carbon Dioxide 23 mmol/L (20-30); Chloride 106 mmol/L (98-107); Potassium 3.6 mmol/L (3.5-5.1); Sodium 136 mmol/L (136-145)
[2023-07-20 07:31] LABS: Calcium 8.4 mg/dL (8.5-10.1)
[2023-07-20 07:36] LABS: BUN/Creatinine Ratio 12.3 (10.0-20.0); Blood Urea Nitrogen 7 mg/dL (9-23); Glucose 115 mg/dL (74-106)
[2023-07-20 13:00] VITALS: BP 125/73; PULSE 65; RESP 20; TEMP 98.7; O2SAT 96
[2023-07-20 17:00] VITALS: BP 129/72; PULSE 62; RESP 20; TEMP 98.7; O2SAT 93
[2023-07-20 21:00] VITALS: BP 109/58; PULSE 101; RESP 20; TEMP 99.4; O2SAT 96
[2023-07-21 01:00] VITALS: BP 129/72; PULSE 59; RESP 20; TEMP 97.5; O2SAT 97
[2023-07-21 05:00] VITALS: BP 104/54; PULSE 61; RESP 20; TEMP 97.4; O2SAT 96
[2023-07-21 05:18] LABS: Basophils # (auto) 0 10 ^3/uL (0-0.2); Basophils % (auto) 0.6 % (0.0-2.0); Eosinophils # (auto) 0.1 10 ^3/uL (0-0.8); Eosinophils % (auto) 1.7 % (0.0-7.0); Hematocrit 35.6 % (41.0-53.0); Lymphocytes # (auto) 0.6 10 ^3/uL (0.4-5.4); Lymphocytes % (auto) 12.7 % (10.0-50.0); Mean Corpuscular Hemoglobin 28.8 pg (28.0-32.0); Mean Corpuscular Hgb Conc. 33.7 g/dL (32.0-36.0); Mean Corpuscular Volume 85.5 fL (80.0-100.0); Monocytes # (auto) 0.6 10 ^3/uL (0-1.3); Monocytes % (auto) 12.4 % (0.0-12.0); Neutrophils # (auto) 3.3 10 ^3/uL (1.6-8.6); Neutrophils % (auto) 72.6 % (37.0-80.0); Red Blood Cells 4.17 10^6/uL (4.5-5.90); Red Cell Distribution Width 15.5 % (11.8-14.3); White Blood Cell 4.5 10^3/uL (4.4-10.8)
[2023-07-21 05:28] LABS: Chloride 106 mmol/L (98-107); Potassium 3.2 mmol/L (3.5-5.1); Sodium 136 mmol/L (136-145)
[2023-07-21 05:29] LABS: Anion Gap 5 (5-15); Calcium 8.4 mg/dL (8.5-10.1); Carbon Dioxide 25 mmol/L (20-30)
[2023-07-21 05:34] LABS: BUN/Creatinine Ratio 10.5 (10.0-20.0); Blood Urea Nitrogen 6 mg/dL (9-23); Glucose 149 mg/dL (74-106)
[2023-07-21] MEDS: POTASSIUM CHL 20 Meq TABLET PO ONE (07:15)
[2023-07-21 09:00] VITALS: BP 125/68; PULSE 64; RESP 18; TEMP 97.8; O2SAT 98
[2023-07-21] MEDS ORDERED: SULF400T11 PO (11:40)
[2023-07-21 13:00] VITALS: BP 130/72; PULSE 61; RESP 18; TEMP 97.4; O2SAT 98
== END 2023-07-21 17:45 | disposition home or self-care (01) | DRG 699 ==
LOC: ER 12:25 → OVERFLOW 16:08 → WEST WING 07-17 15:26
PROVIDERS: ADMIT Internal Medicine; ATTEND Internal Medicine
DX: T83.021A Displacement of indwelling urethral catheter, initial encounter (principal); K86.1 Other chronic pancreatitis; N30.01 Acute cystitis with hematuria; N20.0 Calculus of kidney; K76.9 Liver disease, unspecified; F03.90 Unspecified dementia, unspecified severity, without behavioral disturbance, psychotic disturbance, mood disturbance, and anxiety; Y73.8 Miscellaneous gastroenterology and urology devices associated with adverse incidents, not elsewhere classified; E11.65 Type 2 diabetes mellitus with hyperglycemia; Z87.442 Personal history of urinary calculi; Z82.49 Family history of ischemic heart disease and other diseases of the circulatory system
CPT/HCPCS: 36415; 74176; 80048; 80053; 81001; 82962; 83605; 85025; 87040; 87086; 87088; 87186; 96365; 96366; 97110; 97116; 97163; G0378; J1815

== ENCOUNTER 2023-10-20 13:41 | Inpatient (IN) | payer BC, MEDICARE, OTHER ==
[~2023-10-20] VITALS: Ht 177.8 cm; Wt 52.9 kg
[~2023-10-20 13:41] MED LIST changes: +SULF400T11 PO
[2023-10-20 15:25] LABS: Basophils # (auto) 0.1 10 ^3/uL (0-0.2); Eosinophils # (auto) 0.1 10 ^3/uL (0-0.8); Eosinophils % (auto) 1.2 % (0.0-7.0); Hematocrit 42.5 % (41.0-53.0); Hemoglobin 14.5 g/dL (13.5-17.5); Lymphocytes # (auto) 0.9 10 ^3/uL (0.4-5.4); Lymphocytes % (auto) 16.2 % (10.0-50.0); Mean Corpuscular Hemoglobin 31.1 pg (28.0-32.0); Mean Corpuscular Hgb Conc. 34.1 g/dL (32.0-36.0); Monocytes # (auto) 0.5 10 ^3/uL (0-1.3); Monocytes % (auto) 9.9 % (0.0-12.0); Neutrophils % (auto) 71.7 % (37.0-80.0); Nucleated Red Blood Cells % 0.3 %; Red Blood Cells 4.67 10^6/uL (4.5-5.90); Red Cell Distribution Width 14.8 % (11.8-14.3); White Blood Cell 5.5 10^3/uL (4.4-10.8)
[2023-10-20 15:32] LABS: Chloride 108 mmol/L (98-107); Potassium 4.2 mmol/L (3.5-5.1); Sodium 136 mmol/L (136-145)
[2023-10-20 15:33] LABS: Anion Gap 6 (5-15); Calcium 9.4 mg/dL (8.7-10.4); Carbon Dioxide 22 mmol/L (20-30)
[2023-10-20 15:38] LABS: BUN/Creatinine Ratio 18.6 (10.0-20.0); Blood Urea Nitrogen 16 mg/dL (9-23); Glucose 148 mg/dL (74-106)
[2023-10-20 15:49] LABS: Lactic Acid w/Reflex 2.2 mmol/L (0.4-2.0)
[2023-10-20] MEDS ORDERED: ONDANSETRON HCL 4 MG/2 ML VIAL IV PRN (17:45)
[2023-10-20] MEDS ORDERED: DEXTROSE (50%) 50ML SYRG IV PRN (17:45)
[2023-10-20] MEDS ORDERED: DOCUSATE SOD 100 MG CAP PO PRN (17:45)
[2023-10-20] MEDS ORDERED: MORPHINE SULFATE INJ 2 MG/ml SYRG IV PRN (17:45)
[2023-10-20] MEDS ORDERED: NITROGLYCERIN 0.4 MG SL TAB SL PRN (17:45)
[2023-10-20] MEDS: SODIUM CHLORIDE 0.9% 1,000 ML IV ONE (18:06)
[2023-10-20] MEDS: SODIUM CHLORIDE 0.9% 1,000 ML IV SCH (18:45)
[2023-10-20 18:54] LABS: Urine Bacteria MANY /hpf (None Seen); Urine Blood 3+ /uL (Negative); Urine Clarity Ex.Turbid (Clear); Urine Color Dark-Orange (Yellow); Urine Mucus FEW (None Seen); Urine Protein, UAD 2+ (Negative); Urine Specific Gravity 1.015 (1.001-1.035); Urine Urobilinogen Normal (Negative); Urine WBC 2285 /hpf (0 - 3); Urine WBC Clumps PRESENT /hpf (None Seen)
[2023-10-20] MEDS: cefTRIAXone 1GM/50ML D5W 50 ML IV ONE (18:56)
[2023-10-20] MEDS: PRIMIDONE 50 MG TAB PO SCH (19:37)
[2023-10-20 19:45] VITALS: PULSE 71; RESP 16; O2SAT 97
[2023-10-20] MEDS: InsuLIN REG 1unit/0.01ml Soln (100units/ml) SC SCH (22:00)
[2023-10-20] MEDS: ACCU-CHEK COMFORT CURVE STRIP VI SCH (22:54)
[2023-10-20] MEDS: LACTULOSE 20Gm/30ML SOLN PO SCH (23:12)
[2023-10-20] MEDS: SENNA 8.6 MG TAB PO SCH (23:12)
[2023-10-21] VITALS (9 sets, daily range): BP systolic 95–121; BP diastolic 55–65; PULSE 54–63; RESP 16–20; TEMP 97.5–98.2; O2SAT 95–98
[2023-10-21] MEDS: FINASTERIDE 5 MG TAB PO SCH (05:59)
[2023-10-21 07:24] LABS: Basophils # (auto) 0 10 ^3/uL (0-0.2); Basophils % (auto) 0.7 % (0.0-2.0); Eosinophils # (auto) 0.1 10 ^3/uL (0-0.8); Hemoglobin 13.1 g/dL (13.5-17.5); Lymphocytes # (auto) 0.9 10 ^3/uL (0.4-5.4); Lymphocytes % (auto) 19.8 % (10.0-50.0); Mean Corpuscular Hemoglobin 31.3 pg (28.0-32.0); Mean Corpuscular Hgb Conc. 34.4 g/dL (32.0-36.0); Mean Corpuscular Volume 90.8 fL (80.0-100.0); Monocytes # (auto) 0.7 10 ^3/uL (0-1.3); Monocytes % (auto) 14.7 % (0.0-12.0); Neutrophils % (auto) 62.8 % (37.0-80.0); Nucleated Red Blood Cells % 0.1 %; Red Blood Cells 4.18 10^6/uL (4.5-5.90); Red Cell Distribution Width 14.8 % (11.8-14.3); White Blood Cell 4.7 10^3/uL (4.4-10.8)
[2023-10-21 07:42] LABS: Alanine Aminotransferase 34 U/L (7-40); Alkaline Phosphatase 150 U/L (46-116); Anion Gap 5 (5-15); Aspartate Aminotransferase 39 U/L (13-40); BUN/Creatinine Ratio 21.1 (10.0-20.0); Blood Urea Nitrogen 20 mg/dL (9-23); Calcium 8.6 mg/dL (8.7-10.4); Carbon Dioxide 24 mmol/L (20-30); Chloride 112 mmol/L (98-107); Glucose 98 mg/dL (74-106); Potassium 4.2 mmol/L (3.5-5.1); Sodium 141 mmol/L (136-145)
[2023-10-21 07:43] LABS: Bilirubin, Total 0.5 mg/dL (0.2-1.0); Total Protein 5.5 g/dL (5.7-8.2)
[2023-10-21] MEDS: OXYBUTYNIN CHL 5 MG TAB PO SCH (09:32)
[2023-10-21] MEDS: cefTRIAXone 1GM/50ML D5W 50 ML IV SCH (09:33)
[2023-10-21] MEDS: AMIODARONE HCL 200 MG TAB PO SCH (09:34)
[2023-10-21] MEDS: ENOXAPARIN SOD 30 MG/0.3 ML SYRINGE SC SCH (10:11)
[2023-10-21] MEDS: PHENAZOPYRIDINE HCL 100 MG TAB PO SCH (10:11)
[2023-10-21] MEDS: TAMSULOSIN HYDROCHLORIDE 0.4 MG CAP PO SCH (17:59)
[2023-10-22] VITALS (8 sets, daily range): BP systolic 89–139; BP diastolic 46–79; PULSE 47–77; RESP 16–19; TEMP 36.6; O2SAT 94–97
[2023-10-22] MEDS: ALBUMIN 5% 250 ML IV ONE (05:09)
[2023-10-22 07:05] LABS: Anion Gap 7 (5-15); Carbon Dioxide 21 mmol/L (20-30); Chloride 109 mmol/L (98-107); Potassium 3.7 mmol/L (3.5-5.1); Sodium 137 mmol/L (136-145)
[2023-10-22 07:06] LABS: Calcium 8.3 mg/dL (8.7-10.4)
[2023-10-22 07:11] LABS: BUN/Creatinine Ratio 23.5 (10.0-20.0); Blood Urea Nitrogen 16 mg/dL (9-23); Glucose 85 mg/dL (74-106)
[2023-10-22 07:14] LABS: Basophils # (auto) 0 10 ^3/uL (0-0.2); Basophils % (auto) 0.6 % (0.0-2.0); Eosinophils # (auto) 0.1 10 ^3/uL (0-0.8); Eosinophils % (auto) 1.8 % (0.0-7.0); Hematocrit 36.3 % (41.0-53.0); Hemoglobin 12.1 g/dL (13.5-17.5); Lymphocytes # (auto) 0.8 10 ^3/uL (0.4-5.4); Lymphocytes % (auto) 19.8 % (10.0-50.0); Mean Corpuscular Hemoglobin 31.1 pg (28.0-32.0); Mean Corpuscular Hgb Conc. 33.2 g/dL (32.0-36.0); Mean Corpuscular Volume 93.6 fL (80.0-100.0); Monocytes # (auto) 0.6 10 ^3/uL (0-1.3); Monocytes % (auto) 14.8 % (0.0-12.0); Neutrophils # (auto) 2.6 10 ^3/uL (1.6-8.6); Nucleated Red Blood Cells % 0.2 %; Red Blood Cells 3.88 10^6/uL (4.5-5.90); Red Cell Distribution Width 15.2 % (11.8-14.3); White Blood Cell 4.1 10^3/uL (4.4-10.8)
[2023-10-22] MEDS ORDERED: SODIUM CHLORIDE 0.9% 2,200 ML IV ONE (08:30)
[2023-10-22] MEDS ORDERED: CEPH250C PO (15:23)
[2023-10-22] MEDS ORDERED: TAMS0.4C36 PO (15:23)
[2023-10-22] MEDS ORDERED: FINA5TAB4 PO (15:23)
== END 2023-10-22 17:45 | disposition home or self-care (01) | DRG 872 ==
LOC: ER 13:46 → OVERFLOW 17:54 → WEST WING 21:43 → TELE-WESTW 10-21 11:42
PROVIDERS: ADMIT Student in an Organized Health Care Education/Training Program; ATTEND Student in an Organized Health Care Education/Training Program
DX: A41.9 Sepsis, unspecified organism (principal); D68.59 Other primary thrombophilia; Z68.1 Body mass index [BMI] 19.9 or less, adult; N39.0 Urinary tract infection, site not specified; F03.90 Unspecified dementia, unspecified severity, without behavioral disturbance, psychotic disturbance, mood disturbance, and anxiety; I10 Essential (primary) hypertension; K74.60 Unspecified cirrhosis of liver; I48.91 Unspecified atrial fibrillation; R63.6 Underweight; N40.1 Benign prostatic hyperplasia with lower urinary tract symptoms; R33.8 Other retention of urine; E11.9 Type 2 diabetes mellitus without complications; Z87.442 Personal history of urinary calculi; Z85.07 Personal history of malignant neoplasm of pancreas; Z99.3 Dependence on wheelchair; Z79.4 Long term (current) use of insulin; Z79.899 Other long term (current) drug therapy
CPT/HCPCS: 36415; 74018; 74176; 76775; 80048; 80053; 81001; 82962; 83605; 85025; 87040; 87086; 96361; 96365; G0378; J1815

== ENCOUNTER 2023-11-09 03:24 | Inpatient (IN) | payer BC ==
[~2023-11-09] VITALS: Ht 182.9 cm; Wt 54.2 kg
[~2023-11-09 03:24] MED LIST changes: -AMIO100T3 OR; +AMIO100T3 PO; +CEPH250C PO; -DOCU1CAP46 PO; -LACT10SO3 PO; -MELA3TAB27 PO; -SENN1TAB14 PO; -SULF400T11 PO; +SULF800T23 PO; +TAMS0.4C39 PO
[2023-11-09 03:51] LABS: Hematocrit 40.3 % (41.0-53.0); Hemoglobin 13.3 g/dL (13.5-17.5); Mean Corpuscular Hemoglobin 30.5 pg (28.0-32.0); Mean Corpuscular Volume 92.3 fL (80.0-100.0); Platelet Count (auto) 106 10^3/uL (140-450); Red Blood Cells 4.37 10^6/uL (4.5-5.90); Red Cell Distribution Width 15.2 % (11.8-14.3); White Blood Cell 4.5 10^3/uL (4.4-10.8)
[2023-11-09 03:58] LABS: Band Neutrophils % (manual) 0; Basophils % (manual) 0 (0.0-2.0); Blast Cells 0; Eosinophils % (manual) 0 (0-7); Metamyelocytes % 0; Myelocytes % 0; Promyelocytes % 0; Reactive Lymphocytes 0
[2023-11-09 04:06] LABS: Alanine Aminotransferase 63 U/L (7-40); Albumin 3.5 g/dL (3.2-4.8); Alkaline Phosphatase 147 U/L (46-116); Anion Gap 5 (5-15); Aspartate Aminotransferase 63 U/L (13-40); BUN/Creatinine Ratio 17.8 (10.0-20.0); Bilirubin, Total 0.8 mg/dL (0.2-1.0); Blood Urea Nitrogen 19 mg/dL (9-23); Carbon Dioxide 21 mmol/L (20-30); Chloride 108 mmol/L (98-107); Glucose 155 mg/dL (74-106); Potassium 4.1 mmol/L (3.5-5.1); Sodium 134 mmol/L (136-145); Total Protein 6.2 g/dL (5.7-8.2)
[2023-11-09 04:15] LABS: Lymphocytes % (manual) 19 (10.0-50.0); Monocytes % (manual) 15 (0-12); Platelet Estimate Decreased
[2023-11-09] MEDS: LACTULOSE 20Gm/30ML SOLN PO ONE (05:58)
[2023-11-09 08:01] LABS: Urine Bacteria FEW /hpf (None Seen); Urine Blood 1+ /uL (Negative); Urine Color Yellow (Yellow); Urine Protein, UAD TRACE (Negative); Urine Specific Gravity 1.016 (1.001-1.035); Urine Urobilinogen 2 mg/dL (Negative); Urine WBC 153 /hpf (0 - 3); Urine pH 6.5 (5.0-9.0)
[2023-11-09 08:04] LABS: Urine Clarity Cloudy (Clear)
[2023-11-09 09:54] VITALS: RESP 14; O2SAT 95
[2023-11-09] MEDS ORDERED: DEXTROSE (50%) 50ML SYRG IV PRN (10:30)
[2023-11-09] MEDS ORDERED: HYDROcodone-ACET 5/325MG TAB PO PRN (10:45)
[2023-11-09] MEDS ORDERED: ONDANSETRON HCL 4 MG/2 ML VIAL IV PRN (10:45)
[2023-11-09] MEDS ORDERED: DOCUSATE SOD 100 MG CAP PO PRN (10:45)
[2023-11-09] MEDS ORDERED: ACETAMINOPHEN 325 MG TAB PO PRN (10:45)
[2023-11-09] MEDS: cefTRIAXone 1GM/50ML D5W 50 ML IV SCH (11:04)
[2023-11-09] MEDS: SODIUM CHLORIDE 0.9% 500 ML IV ONE (11:04)
[2023-11-09] MEDS: FINASTERIDE 5 MG TAB PO SCH (11:04)
[2023-11-09] MEDS: TAMSULOSIN HYDROCHLORIDE 0.4 MG CAP PO SCH (11:04)
[2023-11-09] MEDS: OXYBUTYNIN CHL 5 MG TAB PO SCH (11:04)
[2023-11-09] MEDS: ACCU-CHEK COMFORT CURVE STRIP VI SCH (11:32)
[2023-11-09 12:00] LABS: Erythrocyte Sedimentation Rate 10 mm/hr (0-20)
[2023-11-09] MEDS: InsuLIN REG 1unit/0.01ml Soln (100units/ml) SC SCH (12:34)
[2023-11-09] MEDS: PRIMIDONE 50 MG TAB PO SCH (13:29)
[2023-11-09] MEDS: LACTULOSE 20Gm/30ML SOLN PO SCH (14:27)
[2023-11-09] MEDS: SODIUM CHLOR 0.9% PF (SALINE LOCK) 10ML VIAL/SYR IV SCH (14:27)
[2023-11-09 19:30] VITALS: RESP 14; O2SAT 95
[2023-11-09 21:47] VITALS: BP 100/67; PULSE 60; RESP 18; TEMP 98.1; O2SAT 98
[2023-11-09 21:58] LABS: Hemoglobin 12.2 g/dL (13.5-17.5); Mean Corpuscular Hemoglobin 31.3 pg (28.0-32.0); Mean Corpuscular Hgb Conc. 33.9 g/dL (32.0-36.0); Mean Corpuscular Volume 92.2 fL (80.0-100.0); Platelet Count (auto) 87 10^3/uL (140-450); Red Cell Distribution Width 14.2 % (11.8-14.3); White Blood Cell 3.3 10^3/uL (4.4-10.8)
[2023-11-09 22:00] VITALS: BP 100/67; PULSE 60; RESP 18; TEMP 98.1; O2SAT 98
[2023-11-09 22:04] LABS: Chloride 108 mmol/L (98-107); Potassium 4.3 mmol/L (3.5-5.1); Sodium 133 mmol/L (136-145)
[2023-11-09 22:05] LABS: Anion Gap 3 (5-15); Carbon Dioxide 22 mmol/L (20-30)
[2023-11-09 22:06] LABS: Basophils % (manual) 0 (0.0-2.0); Blast Cells 0; Calcium 8.4 mg/dL (8.7-10.4); Myelocytes % 0; Promyelocytes % 0; Reactive Lymphocytes 0
[2023-11-09 22:10] LABS: BUN/Creatinine Ratio 14.9 (10.0-20.0); Blood Urea Nitrogen 21 mg/dL (9-23)
[2023-11-09 22:16] LABS: Glucose 406 mg/dL (74-106)
[2023-11-09 22:33] LABS: Band Neutrophils % (manual) 1; Eosinophils % (manual) 3 (0-7); Lymphocytes % (manual) 22 (10.0-50.0); Metamyelocytes % 1; Monocytes % (manual) 22 (0-12)
[2023-11-09 22:34] LABS: Platelet Estimate Decreased
[2023-11-10] VITALS (7 sets, daily range): BP systolic 98–129; BP diastolic 57–76; PULSE 56–78; RESP 15–19; TEMP 97.5–98.1; O2SAT 95–98
[2023-11-10] MEDS ORDERED: DEXTROSE (50%) 50ML SYRG IV PRN
[2023-11-10] MEDS: ACCU-CHEK COMFORT CURVE STRIP VI SCH
[2023-11-10] MEDS: InsuLIN REG 1unit/0.01ml Soln (100units/ml) SC SCH
[2023-11-10] MEDS: INSULIN LANTUS (GLARGINE) 1 /0.01ml (100units/ml) SC SCH (06:23)
[2023-11-10 06:58] LABS: Basophils # (auto) 0 10 ^3/uL (0-0.2); Basophils % (auto) 0.6 % (0.0-2.0); Eosinophils # (auto) 0.1 10 ^3/uL (0-0.8); Hematocrit 36.4 % (41.0-53.0); Hemoglobin 12.4 g/dL (13.5-17.5); Lymphocytes # (auto) 0.7 10 ^3/uL (0.4-5.4); Lymphocytes % (auto) 18.1 % (10.0-50.0); Mean Corpuscular Hemoglobin 31.5 pg (28.0-32.0); Mean Corpuscular Hgb Conc. 34.2 g/dL (32.0-36.0); Mean Corpuscular Volume 92.3 fL (80.0-100.0); Monocytes # (auto) 0.7 10 ^3/uL (0-1.3); Monocytes % (auto) 19.5 % (0.0-12.0); Neutrophils # (auto) 2.2 10 ^3/uL (1.6-8.6); Neutrophils % (auto) 59.8 % (37.0-80.0); Nucleated Red Blood Cells % 0.1 %; Platelet Count (auto) 103 10^3/uL (140-450); Red Blood Cells 3.94 10^6/uL (4.5-5.90); Red Cell Distribution Width 14.2 % (11.8-14.3); White Blood Cell 3.7 10^3/uL (4.4-10.8)
[2023-11-10 07:07] LABS: Alanine Aminotransferase 108 U/L (7-40); Alkaline Phosphatase 147 U/L (46-116); Anion Gap 7 (5-15); BUN/Creatinine Ratio 17.9 (10.0-20.0); Blood Urea Nitrogen 20 mg/dL (9-23); Calcium 8.7 mg/dL (8.7-10.4); Carbon Dioxide 21 mmol/L (20-30); Chloride 111 mmol/L (98-107); Glucose 103 mg/dL (74-106); Potassium 4.1 mmol/L (3.5-5.1); Sodium 139 mmol/L (136-145)
[2023-11-10 07:08] LABS: Albumin 3.4 g/dL (3.2-4.8)
[2023-11-10 07:09] LABS: Aspartate Aminotransferase 154 U/L (13-40); Bilirubin, Total 0.8 mg/dL (0.2-1.0); Total Protein 5.9 g/dL (5.7-8.2)
[2023-11-10] MEDS: ENOXAPARIN SOD 40 MG/0.4 ML SYRINGE SC SCH (10:58)
[2023-11-10] MEDS: AMIODARONE HCL 200 MG TAB PO SCH (11:00)
[2023-11-10] MEDS: ERGOCALCIFEROL 50,000 UNIT(1.25MG) CAP PO SCH (14:06)
[2023-11-10 14:30] LABS: INR 1.09 (0.9-1.15); Prothrombin Time 11.5 sec (9.3-11.8)
[2023-11-11] VITALS (8 sets, daily range): BP systolic 98–124; BP diastolic 54–76; PULSE 51–60; RESP 15–19; TEMP 36.9; O2SAT 93–97
[2023-11-11 05:59] LABS: Basophils # (auto) 0 10 ^3/uL (0-0.2); Basophils % (auto) 0.4 % (0.0-2.0); Eosinophils # (auto) 0.1 10 ^3/uL (0-0.8); Eosinophils % (auto) 1.9 % (0.0-7.0); Hematocrit 36.3 % (41.0-53.0); Hemoglobin 12.6 g/dL (13.5-17.5); Lymphocytes # (auto) 0.6 10 ^3/uL (0.4-5.4); Lymphocytes % (auto) 14.2 % (10.0-50.0); Mean Corpuscular Hemoglobin 31.5 pg (28.0-32.0); Mean Corpuscular Hgb Conc. 34.7 g/dL (32.0-36.0); Mean Corpuscular Volume 90.8 fL (80.0-100.0); Monocytes # (auto) 0.7 10 ^3/uL (0-1.3); Monocytes % (auto) 15.9 % (0.0-12.0); Neutrophils # (auto) 2.8 10 ^3/uL (1.6-8.6); Neutrophils % (auto) 67.6 % (37.0-80.0); Platelet Count (auto) 97 10^3/uL (140-450); Red Cell Distribution Width 14.2 % (11.8-14.3); White Blood Cell 4.1 10^3/uL (4.4-10.8)
[2023-11-11 06:15] LABS: Alanine Aminotransferase 96 U/L (7-40); Albumin 3.3 g/dL (3.2-4.8); Alkaline Phosphatase 141 U/L (46-116); Anion Gap 6 (5-15); Aspartate Aminotransferase 88 U/L (13-40); BUN/Creatinine Ratio 19.1 (10.0-20.0); Blood Urea Nitrogen 17 mg/dL (9-23); Calcium 8.7 mg/dL (8.7-10.4); Carbon Dioxide 23 mmol/L (20-30); Chloride 105 mmol/L (98-107); Glucose 108 mg/dL (74-106); Total Protein 5.9 g/dL (5.7-8.2)
[2023-11-11 06:24] LABS: Sodium 134 mmol/L (136-145)
[2023-11-11] MEDS: INSULIN LANTUS (GLARGINE) 1 /0.01ml (100units/ml) SC SCH (06:51)
[2023-11-11] MEDS ORDERED: DEXTROSE (50%) 50ML SYRG IV PRN (09:45)
[2023-11-11] MEDS ORDERED: PANTOPRAZOLE 40 MG/10 ML VIAL INJ IV SCH (10:00)
[2023-11-11] MEDS ORDERED: ENOXAPARIN SOD 30 MG/0.3 ML SYRINGE SC SCH (10:00)
[2023-11-11] MEDS: ENOXAPARIN SOD 30 MG/0.3 ML SYRINGE SC SCH (10:00)
[2023-11-11] MEDS: ACCU-CHEK COMFORT CURVE STRIP VI SCH (12:31)
[2023-11-11] MEDS: InsuLIN REG 1unit/0.01ml Soln (100units/ml) SC SCH (12:35)
[2023-11-11] MEDS ORDERED: CEFP200T15 PO (15:50)
[2023-11-11] MEDS ORDERED: LACT10SO3 PO (15:50)
== END 2023-11-11 20:24 | disposition hospice, inpatient (51) | DRG 441 ==
LOC: ER 03:24 → EDBD 03:24 → OVERFLOW 10:34 → CENTRAL 21:20
PROVIDERS: ADMIT Internal Medicine; ATTEND Emergency Medicine
DX: K76.82 Hepatic encephalopathy (principal); G93.41 Metabolic encephalopathy; N39.0 Urinary tract infection, site not specified; E46 Unspecified protein-calorie malnutrition; Z68.1 Body mass index [BMI] 19.9 or less, adult; K74.60 Unspecified cirrhosis of liver; I10 Essential (primary) hypertension; I48.91 Unspecified atrial fibrillation; F17.200 Nicotine dependence, unspecified, uncomplicated; E11.9 Type 2 diabetes mellitus without complications; F03.90 Unspecified dementia, unspecified severity, without behavioral disturbance, psychotic disturbance, mood disturbance, and anxiety; Z66 Do not resuscitate; E55.9 Vitamin D deficiency, unspecified; Z79.4 Long term (current) use of insulin; Z79.899 Other long term (current) drug therapy; Z87.442 Personal history of urinary calculi; Z85.07 Personal history of malignant neoplasm of pancreas; Z82.49 Family history of ischemic heart disease and other diseases of the circulatory system; Z74.01 Bed confinement status
CPT/HCPCS: 36415; 70450; 71045; 73630; 80048; 80053; 80320; 81001; 82140; 82306; 82607; 82962; 83036; 83605; 83735; 83880; 84443; 84484; 85007; 85025; 85027; 85610; 85652; 86141; 86301; 87086; 93005; 96360; 96372; 97163; G0378; J1815

== ENCOUNTER → 2024-04-19 | Outpatient (CLI) | payer OTHER ==
[~2024-04-19] MED LIST changes: +CEFP200T15 PO; +LACT10SO3 PO
== END | disposition home or self-care (01) ==
LOC: LAB 14:31
PROVIDERS: ATTEND Registered Nurse
DX: N39.0 Urinary tract infection, site not specified (principal)
CPT/HCPCS: 87086

== ENCOUNTER 2024-04-20 21:36 | Inpatient (IN) | payer OTHER ==
[~2024-04-20] VITALS: Ht 182.9 cm; Wt 56.0 kg
[2024-04-20] MEDS: levoFLOXacin 500MG 100 ML IV ONE (02:00)
--- NOTE | 2024-04-20 21:45 | ECG ---
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
[2024-04-20 22:33] LABS: Basophils # (auto) 0 10 ^3/uL (0-0.2); Basophils % (auto) 0.7 % (0.0-2.0); Eosinophils # (auto) 0.1 10 ^3/uL (0-0.8); Eosinophils % (auto) 2.4 % (0.0-7.0); Hematocrit 35.3 % (41.0-53.0); Hemoglobin 11.9 g/dL (13.5-17.5); Lymphocytes # (auto) 0.7 10 ^3/uL (0.4-5.4); Lymphocytes % (auto) 15.4 % (10.0-50.0); Mean Corpuscular Hemoglobin 30.7 pg (28.0-32.0); Mean Corpuscular Hgb Conc. 33.7 g/dL (32.0-36.0); Mean Corpuscular Volume 91.3 fL (80.0-100.0); Monocytes # (auto) 0.6 10 ^3/uL (0-1.3); Monocytes % (auto) 12.7 % (0.0-12.0); Neutrophils # (auto) 3.2 10 ^3/uL (1.6-8.6); Neutrophils % (auto) 68.8 % (37.0-80.0); Platelet Count (auto) 91 10^3/uL (140-450); Red Blood Cells 3.87 10^6/uL (4.5-5.90); Red Cell Distribution Width 14.7 % (11.8-14.3); White Blood Cell 4.7 10^3/uL (4.4-10.8)
--- NOTE | 2024-04-20 22:43 | ED.PDOC ---
History of Present Illness HPI Comments 73 y/o M, with a history of AFIB, pancreatic cancer, dementia, DM, HTN, liver disease, and UTI's, is BIBA for c/o ALOC w/confusion, today. Per EMS report, patient's spouse called, claiming patient is acting more confused from his usual baseline of A&Ox2. Patient was noted to have been found A&Ox2, with all vitals within normal limits and stable. Upon arrival to ED, patient complains only of dysuria. Patient has no reported fever, chills, weakness, poor appetite, or other associated symptoms or modifiers at this time. Chief Complaint: Confusion Time Seen by MD: 21:40 Primary Care Provider: PING Mcdermott Notes: Nurses Notes, Medications, Allergies Allergies: Coded Allergies: NO KNOWN ALLERGIES (Unverified , 06/21/19) Home Meds Active Scripts Cefpodoxime Proxetil (Cefpodoxime Proxetil) 200 Mg Tab, 1 TAB PO BID for 7 Days, #14 TAB 0 Refills Prov:BESSY LO RESIDENT 11/11/23 Lactulose (Lactulose) 10 Gm/15 Ml Rachel, 10 GM PO TID PRN for 7 Days, #15 ML 0 Refills Prov:BESSY LO RESIDENT 11/11/23 Tamsulosin Hcl (Tamsulosin Hcl) 0.4 Mg Cap, 1 CAP PO DAILY for 30 Days, #30 CAP 5 Refills Prov:SUSAN VALIENTE RESIDENT 10/22/23 Finasteride (Finasteride) 5 Mg Tab, 1 TAB PO DAILY for 30 Days, #30 TAB 11 Refills Prov:SUSAN VALIENTE RESIDENT 10/22/23 Cephalexin (KEFLEX CAPSULE) 250 Mg Cp, 1 CAP PO QID for 5 Days, #28 CAP Prov:SUSAN VALIENTE RESIDENT 10/22/23 Reported Medications Sulfamethoxazole W/Trimethopri (Trimethoprim/Sulfamethoxa) 1 Tab Tab, 1 TAB PO BID for 7 Days, #14 11/10/23 Amiodarone Hcl (AMIODARONE HCL) 100 Mg Tab, 100 MG PO DAILY for 60 Days, #30 06/26/23 Finasteride (Finasteride) 5 Mg Tab, 5 MG PO QAM, TAB 02/27/23 Oxybutynin Chloride (Oxybutynin Chloride) 5 Mg Tab, 5 MG PO DAILY, TAB 02/27/23 Primidone (MYSOLINE TABLET) 50 Mg Tb, 50 MG PO QIDPRN, TAB 06/21/19 Insulin Glargine (Lantus) 100 Unit/Ml Inj, 35 UNIT SC QAM for 28 Days, #10 06/21/19 Insulin Lispro (Human) (Humalog) 100 Unit/Ml Inj, SC TIDPRN, INJ 06/21/19 Information Source: Emergency Med Personnel Mode of Arrival: EMS Severity: Moderate Timing: Hours Duration: Since onset Prehospital treatment: 12 Lead EKG, Accucheck, Clinic Cma Past Medical History PAST MEDICAL HISTORY: AFIB, Cancer, Dementia, DM, HTN, Kidney Stones, Liver, UTI'S Surgical History: Pt Confused Family History Family History: Pt Confused Social History Smoker: Pt Confused Alcohol: Pt Confused Drugs: Pt Confused Lives In: Home Psychiatric: reports: others (ALOC) All Other Systems: Reviewed and Negative (negative unless otherwise stated above or in HPI) Physical Exam General Appearance: Mild Distress, Normal HEENT: Normal ENT Inspection, Pharynx Normal, TMs Normal Neck: Full Range of Motion, Non-Tender, Normal, Normal Inspection Respiratory: Chest Non-Tender, Lungs Clear, No Accessory Muscle Use, No Respiratory Distress, Normal Breath Sounds Cardiovascular: No Edema, No JVD, No Murmur, No Gallop, Normal Peripheral Pulses, Regular Rate/Rhythm Breast Exam: Deferred Gastrointestinal: No Organomegaly, Non Tender, No Pulsatile Mass, Normal Bowel Sounds, Soft Genitalia: Deferred Pelvic: Deferred Rectal: Deferred Extremities: No calf tenderness, Normal capillary refill, Normal inspection, Normal range of motion, Non-tender, No pedal edema Musculoskeletal : Apperance: Normal Neurologic: Alert (A&Ox2), founder ceo & president II-XII nml as Tested, No Motor Deficits, Normal Affect, Normal Mood, No Sensory Deficits Cerebellar Function: Normal Reflexes: Normal Skin: Dry, Normal Color, Warm Lymphatic: No Adenopathy Was a procedure done? Was a procedure done?: No EKG EKG : Pulse Rate (adult): 54 [place]: Normal Cardiac Rhythm: Afib Block: None Hypertrophy: None ST: Normal Differential Dx Considerations may include: UTI, encephalopathy, electrolyte imbalance, dehydration X-Ray, Labs, Meds, VS Vital Signs Date Time Temp Pulse Resp B/P (MAP) Pulse Ox O2 Delivery O2 Flow Rate FiO2 04/21/24 02:00 98.0 59 12 108/72 (84) 96 98.0 04/21/24 02:00 59 12 96 Room Air* 0 21 04/21/24 01:52 53 17 109/64 (79) 96 04/20/24 22:43 54 04/20/24 21:45 97.5 52 18 112/56 (74) 97 04/20/24 21:39 54 Lab Test 04/20/24 23:05 04/20/24 22:19 Range/Units Troponin I High Sensitivity 3 L 3 L </=54 ng/L White Blood Count 4.7 4.4-10.8 10^3/uL Red Blood Count 3.87 L 4.5-5.90 10^6/uL Hemoglobin 11.9 L 13.5-17.5 g/dL Hematocrit 35.3 L 41.0-53.0 % Mean Corpuscular Volume 91.3 80.0-100.0 fL Mean Corpuscular Hemoglobin 30.7 28.0-32.0 pg Mean Corpuscular Hemoglobin Concent 33.7 32.0-36.0 g/dL Red Cell Distribution Width 14.7 H 11.8-14.3 % Platelet Count 91 L 140-450 10^3/uL Mean Platelet Volume 7.2 6.9-10.8 fL Neutrophils (%) (Auto) 68.8 37.0-80.0 % Lymphocytes (%) (Auto) 15.4 10.0-50.0 % Monocytes (%) (Auto) 12.7 H 0.0-12.0 % Eosinophils (%) (Auto) 2.4 0.0-7.0 % Basophils (%) (Auto) 0.7 0.0-2.0 % Neutrophils # (Auto) 3.2 1.6-8.6 10 ^3/uL Lymphocytes # (Auto) 0.7 0.4-5.4 10 ^3/uL Monocytes # (Auto) 0.6 0-1.3 10 ^3/uL Eosinophils # (Auto) 0.1 0-0.8 10 ^3/uL Basophils # (Auto) 0 0-0.2 10 ^3/uL Nucleated Red Blood Cells 0.0 % Prothrombin Time 11.5 9.3-11.8 sec Prothrombin Time INR 1.09 0.9-1.15 Activated Partial Thromboplast Time 25.8 24.5-34.5 SEC Sodium Level 133 L 136-145 mmol/L Potassium Level 4.6 3.5-5.1 mmol/L Chloride Level 105 98-107 mmol/L Carbon Dioxide Level 21 20-31 mmol/L Anion Gap 7 5-15 Blood Urea Nitrogen 19 9-23 mg/dL Creatinine 0.86 0.700-1.30 mg/dL Glomerular Filtration Rate Calc 90 >90 mL/min BUN/Creatinine Ratio 22.1 H 10.0-20.0 Serum Glucose 209 H 74-106 mg/dL Calcium Level 8.7 8.7-10.4 mg/dL Total Bilirubin 0.6 0.2-1.0 mg/dL Aspartate Amino Transferase (AST) 53 H 13-40 U/L Alanine Aminotransferase (ALT) 51 H 7-40 U/L Alkaline Phosphatase 186 H 46-116 U/L Total Protein 5.2 L 5.7-8.2 g/dL Albumin 3.0 L 3.2-4.8 g/dL Plasma/Serum Blood Alcohol < 3.0 <10 mg/dL [place] [address] Ph: [phone] DIAGNOSTIC IMAGING Diagnostic Imaging Report : [id number] Signed PATIENT: MAGGIE COHEN ACCT: [id number] UNIT: [id number] : 1950 LOC: ER ROOM / BED: / AGE / SEX: 73 / M ADM STATUS: REG ER SERVICE ORDERING PHYSICIAN: ROBERT WICK MD PROCEDURE(s): CXRP - CHEST PORTABLE REASON: aloc ORDER NUMBER(s): [id number], ACCESSION NUMBER(s): [id number] EXAM: XY CHEST PORTABLE CLINICAL HISTORY: aloc TECHNIQUE: Single AP view of the chest WID: COMPARISON: XY CHEST XRAY 1 VIEW on DOS: 11/09/23 FINDINGS: Lines and tubes: None Chest: Mild cardiomegaly without pulmonary vascular congestion. Calcified plaque projects over the aortic arch. No pleural effusion, pneumothorax, or consolidation. Linear scarring or atelectasis in the right mid lung. Linear scarring or atelectasis in the left lung base. The osseous structures are grossly intact. IMPRESSION: Mild cardiomegaly without CHF or pneumonia. ATED BY: JOSUÉ OWENS MD DICTATED DATE/TIME: 04/20/242328 SIGNED BY: JOSUÉ OWENS MD SIGNED DATE/TIME: 04/20/242328 CC: [place] [address] Ph: [phone] DIAGNOSTIC IMAGING Diagnostic Imaging Report : [id number] Signed PATIENT: MAGGIE COHEN ACCT: [id number] UNIT: [id number] : 1950 LOC: ER ROOM / BED: / AGE / SEX: 73 / M ADM STATUS: REG ER SERVICE 37 ORDERING PHYSICIAN: ROBERT WICK MD PROCEDURE(s): HWOCT - HEAD WITHOUT CONTRAST REASON: aloc ORDER NUMBER(s): [id number], ACCESSION NUMBER(s): [id number] CLINICAL HISTORY: aloc TECHNIQUE: Helical imaging carried out from skull base to vertex without intravenous contrast. This exam was performed according to our departmental dose optimization program. Up-to-date CT equipment and radiation dose reduction techniques are utilized as appropriate. CTDIVol: 53.08 mGy DLP: 851.02 mGy-cm WID: COMPARISON: CT HEAD WITHOUT CONTRAST on DOS: 11/09/23, FINDINGS: Generalized cerebral volume loss with concordant prominence of subarachnoid spaces and ventricles. Mild patchy low attenuation in the cerebral white matter consistent with nonspecific white matter disease. There is no midline shift or mass effect. The owusu white matter interfaces are maintained. The basal cisterns are patent. There is no evidence of acute intracranial hemorrhage or extra-axial fluid collection. Small right mastoid air cell effusion. The left mastoid air cells are well aerated. Prior ocular lens replacement. Periapical lucencies in the visualized maxillary teeth. 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 No acute intracranial abnormality. 2. Generalized cerebral volume loss and mild chronic microvascular ischemic change. 3. Periapical lucencies in visualized maxillary teeth. 4. 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 ATED BY: JOSUÉ OWENS MD DICTATED DATE/TIME: 04/21/2414 SIGNED BY: JOSUÉ OWENS MD SIGNED DATE/TIME: 04/21/2414 CC: The patient prophylactically was placed on Levaquin for suspected UTI causing altered level of consciousness. The patient will be admitted to the hospitalist for further evaluation and care 1st troponin is three. Second troponin is three. EKG shows no signs of ischemia. CBC shows pancytopenia CMP shows elevated liver function tests UA is pending Patient will be admitted to the hospitalist for further evaluation and care. Time of 1ST Reevaluation: 22:10 Reevaluation 1ST: Unchanged Patient Education/Counseling: Other (patient is demented at baseline ) Family Education/Counseling: No Family Present Departure 1 Departure Time of Disposition: 03:28 Impression: Primary Impression: Acute confusional state Additional Impressions: Metabolic encephalopathy Dysuria Pancytopenia Elevated LFTs UTI (urinary tract infection) Qualified Codes: N39.0 - Urinary tract infection, site not specified Disposition: ADMITTED INPATIENT Admit to: Tele Condition: Guarded Critical Care Note Critical Care Time?: Yes (35 min-critical care time only) Stability Stability form required: No Heart Score Heart Score: Heart Score Response (Comments) Value History Moderate Suspicious 1 EKG Repolarization Disturb 1 Age >65 2 Risk Factors >3 or Hx ASHD 2 Troponin Normal limit 0 Total 6 I personally scribed for ROBERT WICK MD ([email or web address]) on 04/20/24 at 22:43. Electronically submitted by Rusty Rosenthal ([email or web address]). I personally scribed for ROBERT WICK MD ([email or web address]) on 04/20/24 at 22:56. Electronically submitted by Rusty Rosenthal ([email or web address]). ROBERT WICK MD Apr 20, 2024 22:43
[2024-04-20 22:51] LABS: Carbon Dioxide 21 mmol/L (20-31); Chloride 105 mmol/L (98-107)
[2024-04-20 22:52] LABS: Anion Gap 7 (5-15); BUN/Creatinine Ratio 22.1 (10.0-20.0); Bilirubin, Total 0.6 mg/dL (0.2-1.0); Blood Urea Nitrogen 19 mg/dL (9-23); Potassium 4.6 mmol/L (3.5-5.1)
[2024-04-20 23:02] LABS: INR 1.09 (0.9-1.15); Partial Thromboplastin Time 25.8 SEC (24.5-34.5); Prothrombin Time 11.5 sec (9.3-11.8)
[2024-04-20 23:07] LABS: Alanine Aminotransferase 51 U/L (7-40); Alkaline Phosphatase 186 U/L (46-116); Aspartate Aminotransferase 53 U/L (13-40); Blood Alcohol < 3.0 mg/dL (<10); Calcium 8.7 mg/dL (8.7-10.4); Glucose 209 mg/dL (74-106); Sodium 133 mmol/L (136-145); Total Protein 5.2 g/dL (5.7-8.2)
--- NOTE | 2024-04-20 23:31 | DVH ---
EXAM: XY CHEST PORTABLE CLINICAL HISTORY: aloc TECHNIQUE: Single AP view of the chest WID: COMPARISON: XY CHEST XRAY 1 VIEW on DOS: 11/09/23 FINDINGS: Lines and tubes: None Chest: Mild cardiomegaly without pulmonary vascular congestion. Calcified plaque projects over the aortic a rch. No pleural effusion, pneumothorax, or consolidation. Linear scarring or atelectasis in the right mid lung. Linear scarring or atelectasis in the left lung base. The osseous structures are grossly intact. IMPRESSION: Mild cardiomegaly without CHF or pneumonia.
--- NOTE | 2024-04-21 00:17 | DVH ---
CLINICAL HISTORY: aloc TECHNIQUE: Helical imaging carried out from skull base to vertex without intravenous contrast. This e xam was performed according to our departmental dose optimization program. Up-to-date CT equipment an d radiation dose reduction techniques are utilized as appropriate. CTDIVol: 53.08 mGy DLP: 851.02 mGy-cm WID: COMPARISON: CT HEAD WITHOUT CONTRAST on DOS: 11/09/23, FINDINGS: Generalized cerebral volume loss with concordant prominence of subarachnoid spaces and ventricles. Mi ld patchy low attenuation in the cerebral white matter consistent with nonspecific white matter disea se. There is no midline shift or mass effect. The owusu white matter interfaces are maintained. The basal cisterns are patent. There is no evidence of acute intracranial hemorrhage or extra-axial fluid dania ection. Small right mastoid air cell effusion. The left mastoid air cells are well aerated. Prior ocu lar lens replacement. Periapical lucencies in the visualized maxillary teeth. There is a oroantral fi stula from a right maxillary molar to the right maxillary sinus where there is mild mucosal thickenin g IMPRESSION: 1. No acute intracranial abnormality. 2. Generalized cerebral volume loss and mild chronic microvascular ischemic change. 3. Periapical lucencies in visualized maxillary teeth. 4. 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
[2024-04-21 02:00] VITALS: PULSE 59; RESP 12; O2SAT 96
[2024-04-21] MEDS ORDERED: ACETAMINOPHEN 325 MG TAB PO PRN (08:15)
[2024-04-21] MEDS ORDERED: NITROGLYCERIN 0.4 MG SL TAB SL PRN (08:15)
[2024-04-21] MEDS ORDERED: ONDANSETRON HCL 4 MG/2 ML VIAL IV PRN (08:15)
[2024-04-21] MEDS ORDERED: HYDROcodone-ACET 5/325MG TAB PO PRN (08:15)
[2024-04-21] MEDS ORDERED: DEXTROSE (50%) 50ML SYRG IV PRN (08:15)
[2024-04-21] MEDS ORDERED: MORPHINE SULFATE INJ 2 MG/ml SYRG IV PRN (08:15)
--- NOTE | 2024-04-21 08:19 | DVHHP2 ---
History of Present Illness Reason for Visit: ALOC History of Present Illness Hector Calero is a 73-year-old male with past medical history of dementia, hypertension, diabetes, and kidney stones who was brought to the hospital for ALOC. states that he has been experiencing chronic UTI. He has been seen by urgent care and received Bactrim a couple times without improvement of symptoms. states that the patient has pancreatic cancer and she has breast cancer and has not transportation to come visit him. 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 BALLS: Dementia Heme/Onc: Cancer (pancreatic) Hepatobiliary: Cirrhosis Endocrine: Diabetes Past Surgical History: Appendectomy, Tonsillectomy Family History: None Smoke: No ALCOHOL: none Drugs: None Lives: with Family Domestic Violence: Neg Review of Systems Constitutional: No: Fever, Chills, Sweats, Weakness, Malaise, Other Eyes: No: Pain, Vision change, Conjunctivae inflammation, Eyelid inflammation, Other, Redness ENT: No: Ear pain, Ear discharge, Nose pain, Nose discharge, Nose congestion, Mouth pain, Mouth swelling, Throat pain, Throat swelling, Other Respiratory: No: Cough, Dry, Shortness of breath, SOB with excertion, Wheezing, Hemoptysis, Pleuritic Pain, Sputum, Wheezing, Other Cardiovascular: No: Chest Pain, Palpitations, Orthopnea, Paroxysmal Noc. Dyspnea, Edema, Lt Headedness, Other Gastrointestinal: No: Nausea, Vomiting, Abdominal Pain, Diarrhea, Constipation, Melena, Hematochezia, Other Genitourinary: No Dysuria, No Frequency, No Incontinence, No Hematuria, No Retention, No Other Musculoskeletal: No: other, neck pain, shoulder pain, arm pain, back pain, hand pain, leg pain, foot pain Skin: No: Rash, Lesions, Jaundice, Bruising, Other Neurological: Confusion; No: Weakness, Numbness, Incoordination, Change in speech, Seizures, Other Allergies: Coded Allergies: NO KNOWN ALLERGIES (Unverified , 06/21/19) Medications Current Medications Medications Dose Ordered Sig/Angelique Route Start Time Stop Time Status Last Admin Dose Admin Sodium Chloride 10 ml Q8HR IV 04/21/24 14:00 UNV Exam Vital Signs Vital Signs Date Time Temp Pulse Resp B/P (MAP) Pulse Ox O2 Delivery O2 Flow Rate FiO2 04/21/24 07:00 59 15 128/64 (85) 95 04/21/24 02:00 98.0 98.0 04/21/24 02:00 Room Air* 0 21 General Appearance: Alert, Cooperative, mild distress, Other (thin, ill appering) HEENT: Atraumatic, PERRLA, EOMI Respiratory: Clear to auscultation, Normal air movement Cardiovascular: Normal S1, Normal S2, Other (Bradycardia) Abdominal: Normal bowel sounds, Soft, No tenderness Extremities: No clubbing, No cyanosis, No edema, Normal pulses Skin: No breakdown Neuro: Normal speech Psych/Mental Status: Mental status NL, Mood NL Labs/Xrays Labs Test 04/20/24 23:05 04/20/24 22:19 Range/Units Troponin I High Sensitivity 3 L </=54 ng/L White Blood Count 4.7 4.4-10.8 10^3/uL Red Blood Count 3.87 L 4.5-5.90 10^6/uL Hemoglobin 11.9 L 13.5-17.5 g/dL Hematocrit 35.3 L 41.0-53.0 % Mean Corpuscular Volume 91.3 80.0-100.0 fL Mean Corpuscular Hemoglobin 30.7 28.0-32.0 pg Mean Corpuscular Hemoglobin Concent 33.7 32.0-36.0 g/dL Red Cell Distribution Width 14.7 H 11.8-14.3 % Platelet Count 91 L 140-450 10^3/uL Mean Platelet Volume 7.2 6.9-10.8 fL Neutrophils (%) (Auto) 68.8 37.0-80.0 % Lymphocytes (%) (Auto) 15.4 10.0-50.0 % Monocytes (%) (Auto) 12.7 H 0.0-12.0 % Eosinophils (%) (Auto) 2.4 0.0-7.0 % Basophils (%) (Auto) 0.7 0.0-2.0 % Neutrophils # (Auto) 3.2 1.6-8.6 10 ^3/uL Lymphocytes # (Auto) 0.7 0.4-5.4 10 ^3/uL Monocytes # (Auto) 0.6 0-1.3 10 ^3/uL Eosinophils # (Auto) 0.1 0-0.8 10 ^3/uL Basophils # (Auto) 0 0-0.2 10 ^3/uL Nucleated Red Blood Cells 0.0 % Prothrombin Time 11.5 9.3-11.8 sec Prothrombin Time INR 1.09 0.9-1.15 Activated Partial Thromboplast Time 25.8 24.5-34.5 SEC Sodium Level 133 L 136-145 mmol/L Potassium Level 4.6 3.5-5.1 mmol/L Chloride Level 105 98-107 mmol/L Carbon Dioxide Level 21 20-31 mmol/L Anion Gap 7 5-15 Blood Urea Nitrogen 19 9-23 mg/dL Creatinine 0.86 0.700-1.30 mg/dL Glomerular Filtration Rate Calc 90 >90 mL/min BUN/Creatinine Ratio 22.1 H 10.0-20.0 Serum Glucose 209 H 74-106 mg/dL Calcium Level 8.7 8.7-10.4 mg/dL Total Bilirubin 0.6 0.2-1.0 mg/dL Aspartate Amino Transferase (AST) 53 H 13-40 U/L Alanine Aminotransferase (ALT) 51 H 7-40 U/L Alkaline Phosphatase 186 H 46-116 U/L Total Protein 5.2 L 5.7-8.2 g/dL Albumin 3.0 L 3.2-4.8 g/dL Plasma/Serum Blood Alcohol < 3.0 <10 mg/dL Head CT FINDINGS: Generalized cerebral volume loss with concordant prominence of subarachnoid spaces and ventricles. Mild patchy low attenuation in the cerebral white matter consistent with nonspecific white matter disease. There is no midline shift or mass effect. The owusu white matter interfaces are maintained. The basal cisterns are patent. There is no evidence of acute intracranial hemorrhage or extra-axial fluid collection. Small right mastoid air cell effusion. The left mastoid air cells are well aerated. Prior ocular lens replacement. Periapical lucencies in the visualized maxillary teeth. 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 No acute intracranial abnormality. 2. Generalized cerebral volume loss and mild chronic microvascular ischemic change. 3. Periapical lucencies in visualized maxillary teeth. 4. 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 EXAM: XY CHEST PORTABLE FINDINGS: Lines and tubes: None Chest: Mild cardiomegaly without pulmonary vascular congestion. Calcified plaque projects over the aortic arch. No pleural effusion, pneumothorax, or consolidation. Linear scarring or atelectasis in the right mid lung. Linear scarring or atelectasis in the left lung base. The osseous structures are grossly intact. IMPRESSION: Mild cardiomegaly without CHF or pneumonia. Assessment/Plan Assessment/Plan Assessment: Metabolic encephalopathy, UTI - Chronic, complicated, Diabetes, Dementia, Plan: Admit to Tele, IV antibiotics, IV hydration, Social Service consult, A1c, Accu checks Q AC&HS with sliding scale, Home medications reconciled, Plan discussed with: Patient My Orders Orders - DIPESH NICOLE [employer] Procedure Category Date Status Time Admit ADMIT 04/21/24 Transmitted 08:11 Code Status CODE 04/21/24 Transmitted 08:11 2 Gm Sodium Diet DIET 04/21/24 Transmitted Breakfast Sodium Chloride Lock PHA 04/21/24 Transmitted (Saline Lock Ns) 14:00 Hydrocodone-Acet PHA 04/21/24 Transmitted 5/325mg Tab ([place] 08:15 Ondansetron Hcl PHA 04/21/24 Transmitted (Zofran) 08:15 Docusate Sodium [facility] 04/21/24 Transmitted Capsule (Colace 08:15 Fall Risk Precautions [facility] 04/21/[address] 08:11 Complete Blood Count LAB 04/22/24 Verified 04:00 Comprehensive LAB 04/22/24 Verified Metabolic Panel 04:00 Condition: Serious [facility] 04/21/24 Transmitted 08:11 Acetaminophen Tablet [facility] 04/21/24 Transmitted (Tylenol Tablet) 08:15 Nitroglycerin [facility] 04/21/24 Transmitted Sublingual (Ntrostat 08:15 Morphine Sulfate PHA 04/21/24 Transmitted Injection 08:15 Stat Ekg For Chest [facility] 04/21/24 Transmitted Pain 08:11 Notify Md Of Changes [facility] 04/21/24 Transmitted From Base 08:11 Cvor Nurse For [facility] 04/21/24 Transmitted 24 Hours 08:11 Emergency Dysrhythmia [facility] 04/21/24 Transmitted Protocol 08:11 Rhythm Strips Once [facility] 04/21/24 Transmitted Every Shift 08:11 Oxygen By Nasal RT 04/21/24 Transmitted Cannula 08:11 Glucose Blood [facility] 04/21/24 Transmitted (Accu-Chek Comfort 11:30 Bedtime Insulin Scale PHA 04/21/24 Transmitted 22:00 Moderate Insulin Ss PHA 04/21/24 Transmitted 11:30 Dextrose 50% Syringe PHA 04/21/24 Transmitted 08:15 * Social Sciences Instructor CONS 04/21/24 Transmitted Consult Date of Service: Apr 21, 2024 Billing Provider: DIPESH NICOLE Common Visit Codes: [id number] INP/OBS CARE (MOD) DIPESH NICOLE Apr 21, 2024 08:19
[2024-04-21 09:51] VITALS: PULSE 54; RESP 11; O2SAT 94
[2024-04-21 10:27] LABS: Urine Bacteria FEW /hpf (None Seen); Urine Blood 1+ /uL (Negative); Urine Clarity Turbid (Clear); Urine Color Colorless (Yellow); Urine Hyaline Cast FEW /lpf (0 - 2); Urine Protein, UAD Negative (Negative); Urine Squamous Epithelial Cell FEW /hpf (<5); Urine Urobilinogen Normal (Negative)
[2024-04-21 10:28] LABS: Urine WBC 445 /HPF (0-3); Urine WBC Clumps PRESENT /hpf (None Seen)
[2024-04-21 10:34] LABS: Cannabinoid Screen, Urine Neg (NEGATIVE)
[2024-04-21 10:36] LABS: Barbiturate Scree,Urine Neg (NEGATIVE)
[2024-04-21 10:37] LABS: Amphetamine Screen, Urine Neg (NEGATIVE); Benzodiazephine Screen, Urine Neg (NEGATIVE); Cocaine Screen, Urine Neg (NEGATIVE); Opiate Scree,Urine Neg (NEGATIVE); Phencyclidine Screen, Urine Neg (NEGATIVE)
[2024-04-21] MEDS: InsuLIN REG 1unit/0.01ml Soln (100units/ml) SC SCH ×2 (11:30→21:22)
[2024-04-21] MEDS: ACCU-CHEK COMFORT CURVE STRIP VI SCH (11:38)
[2024-04-21] MEDS: cefTRIAXone 1GM/50ML D5W 50 ML IV ONE (12:34)
[2024-04-21] MEDS: SODIUM CHLOR 0.9% PF (SALINE LOCK) 10ML VIAL/SYR IV SCH (14:04)
[2024-04-21 19:02] VITALS: BP 113/60; PULSE 78; RESP 16; TEMP 97.6; O2SAT 98
[2024-04-21 19:28] VITALS: PULSE 78; RESP 16; O2SAT 98
[2024-04-21 20:00] VITALS: PULSE 77; PULSE 83; RESP 16
[2024-04-21 21:00] VITALS: BP 125/72; PULSE 77; RESP 16; TEMP 97.6; O2SAT 97
[2024-04-22] VITALS (8 sets, daily range): BP systolic 104–118; BP diastolic 57–66; PULSE 59–73; RESP 16–17; TEMP 97.6–98.1; O2SAT 95–97
[2024-04-22 05:42] LABS: Basophils # (auto) 0 10 ^3/uL (0-0.2); Basophils % (auto) 0.6 % (0.0-2.0); Eosinophils # (auto) 0.1 10 ^3/uL (0-0.8); Eosinophils % (auto) 2.4 % (0.0-7.0); Hematocrit 39.9 % (41.0-53.0); Hemoglobin 13.4 g/dL (13.5-17.5); Lymphocytes # (auto) 0.8 10 ^3/uL (0.4-5.4); Lymphocytes % (auto) 15.8 % (10.0-50.0); Mean Corpuscular Hemoglobin 30.7 pg (28.0-32.0); Mean Corpuscular Hgb Conc. 33.5 g/dL (32.0-36.0); Mean Corpuscular Volume 91.5 fL (80.0-100.0); Monocytes # (auto) 0.8 10 ^3/uL (0-1.3); Monocytes % (auto) 16.4 % (0.0-12.0); Neutrophils # (auto) 3.3 10 ^3/uL (1.6-8.6); Neutrophils % (auto) 64.8 % (37.0-80.0); Nucleated Red Blood Cells % 0.1 %; Platelet Count (auto) 117 10^3/uL (140-450); Red Blood Cells 4.36 10^6/uL (4.5-5.90); Red Cell Distribution Width 15.3 % (11.8-14.3); White Blood Cell 5.2 10^3/uL (4.4-10.8)
[2024-04-22 06:20] LABS: Albumin 3.6 g/dL (3.2-4.8); Anion Gap 7 (5-15); BUN/Creatinine Ratio 17.2 (10.0-20.0); Blood Urea Nitrogen 17 mg/dL (9-23); Calcium 9.3 mg/dL (8.7-10.4); Carbon Dioxide 23 mmol/L (20-31); Chloride 105 mmol/L (98-107); Glucose 85 mg/dL (74-106); Potassium 4.1 mmol/L (3.5-5.1)
[2024-04-22 06:21] LABS: Bilirubin, Total 0.9 mg/dL (0.2-1.0); Total Protein 6.1 g/dL (5.7-8.2)
[2024-04-22 06:24] LABS: Alanine Aminotransferase 52 U/L (7-40); Alkaline Phosphatase 209 U/L (46-116); Aspartate Aminotransferase 56 U/L (13-40); Sodium 135 mmol/L (136-145)
[2024-04-22] MEDS: FINASTERIDE 5 MG TAB PO SCH (06:30)
[2024-04-22] MEDS: INSULIN LANTUS (GLARGINE) 1 /0.01ml (100units/ml) SC SCH (06:31)
[2024-04-22] MEDS: cefTRIAXone 1GM/50ML D5W 50 ML IV SCH (09:17)
[2024-04-22] MEDS: AMIODARONE HCL 200 MG TAB PO SCH (09:18)
[2024-04-22] MEDS: TAMSULOSIN HYDROCHLORIDE 0.4 MG CAP PO SCH (09:18)
--- NOTE | 2024-04-22 11:44 | DVHPN2 ---
Subjective The patient is seen and examined at bedside. The patient is still very confused. He also was sleepy Reviewed: Care Plan, H&P, Labs, Medications, Previous Orders, Radiology Changes from previous H/P or p: No Changes Eyes: No Pain, No Vision change, No Conjunctivae inflammation, No Eyelid inflammation, No Other, No Redness ENT: No Ear pain, No Ear discharge, No Nose pain, No Nose discharge, No Nose congestion, No Mouth pain, No Mouth swelling, No Throat pain, No Throat swelling, No Other Cardiovascular: No Chest Pain, No Palpitations, No Orthopnea, No Paroxysmal Noc. Dyspnea, No Edema, No Lt Headedness, No Other Respiratory: No Cough, No Dry, No Shortness of breath, No SOB with excertion, No Wheezing, No Hemoptysis, No Pleuritic Pain, No Sputum, No Other Gastrointestinal: No Nausea, No Vomiting, No Abdominal Pain, No Diarrhea, No Constipation, No Melena, No Hematochezia, No Other Genitourinary: No Dysuria, No Frequency, No Incontinence, No Hematuria, No Retention, No Other Musculoskeletal: No other, No neck pain, No shoulder pain, No arm pain, No back pain, No hand pain, No leg pain, No foot pain Skin: No Rash, No Lesions, No Jaundice, No Bruising, No Other Objective Vitals Vital Signs Date Time Temp Pulse Resp B/P (MAP) Pulse Ox O2 Delivery O2 Flow Rate FiO2 04/22/24 08:15 97.6 59 16 113/62 (79) 97 97.6 04/21/24 20:00 Room Air* 0 21 Intake/Output Intake and Output 04/22/24 07:00 Intake Total 200 ml Output Total 2500 ml Balance -2300 ml Intake Oral 200 ml Output Urine Total 2500 ml # Voids 1 # Bowel Movements 3 General Appearance: Alert, No acute distress HEENT: Atraumatic, PERRLA, EOMI, Mucous membr. moist/pink Neck: Supple Lungs: Clear to auscultation Cardiovascular: Regular rate, Normal S1, Normal S2, No murmurs, Gallops, Rubs Abdomen: Normal bowel sounds, Soft, No tenderness Neuro: Cranial nerves 3-12 NL Psych/Mental Status: Mental status NL Medications Current Medications Medications Dose Ordered Sig/Angelique Route Start Time Stop Time Status Last Admin Dose Admin Sodium Chloride 10 ml Q8HR IV 04/21/24 14:00 04/22/24 06:30 10 ML Acetaminophen/ Hydrocodone Bitart 1 tab Q4HP PRN PO 04/21/24 08:15 Ondansetron HCl 4 mg Q4HP PRN IV 04/21/24 08:15 Docusate Sodium 100 mg BIDPRN PRN PO 04/21/24 08:15 Acetaminophen 650 mg Q6HP PRN PO 04/21/24 08:15 Nitroglycerin 0.4 mg Q5MINP PRN SL 04/21/24 08:15 Morphine Sulfate 2 mg Q30M PRN IV 04/21/24 08:15 Diagnostic Test (Pha) 1 strip ACHS 04/21/24 11:30 04/22/24 06:31 1 STRIP Insulin Human Regular HS SC 04/21/24 22:00 04/21/24 21:22 8 UNITS Insulin Human Regular AC SC 04/21/24 11:30 04/21/24 17:45 9 UNITS Dextrose 50 ml UD PRN IV 04/21/24 08:15 Ceftriaxone Sodium 50 ml @ 100 mls/hr DAILY@09 IV 04/22/24 09:00 04/22/24 09:17 100 MLS/HR Finasteride 5 mg QAM PO 04/22/24 07:00 04/22/24 06:30 5 MG Tamsulosin HCl 0.4 mg DAILY PO 04/22/24 10:00 04/22/24 09:18 0.4 MG Amiodarone HCl 100 mg DAILY PO 04/22/24 10:00 04/22/24 09:18 100 MG Insulin Glargine 35 units QAM SC 04/22/24 07:00 04/22/24 06:31 35 UNITS Laboratory Results Laboratory Tests 04/22/24 05:14 Chemistry Test 04/22/24 05:14 Albumin 3.6 g/dL (3.2-4.8) Calcium Level 9.3 mg/dL (8.7-10.4) Total Protein 6.1 g/dL (5.7-8.2) LFT Test 04/22/24 05:14 Alanine Aminotransferase (ALT) 52 U/L (7-40) H Alkaline Phosphatase 209 U/L (46-116) H Aspartate Amino Transferase (AST) 56 U/L (13-40) H Total Bilirubin 0.9 mg/dL (0.2-1.0) HgA1c, TSH Test 04/22/24 05:14 Hemoglobin A1c 6.1 % A1C (<5.7) H Urinalysis Test 04/21/24 09:56 Urine Color Colorless (Yellow) Urine Clarity Turbid (Clear) H Urine pH 7.0 (5.0-9.0) Urine Specific [place] 1.010 (1.001-1.035) Urine Protein Negative (Negative) Urine Ketones Negative (Negative) Urine Blood 1+ /uL (Negative) H Urine Nitrite Negative (Negative) Urine Bilirubin Negative (Negative) Urine Urobilinogen Normal mg/dL (Negative) Urine Leukocyte Esterase 3+ /uL (Negative) Urine RBC 9 /hpf (0 - 3) Urine WBC Clumps Present /hpf (None Seen) Urine Microscopic WBC 445 /HPF (0-3) H Urine Squamous Epithelial Cells Few /hpf (<5) Urine Bacteria Few /hpf (None Seen) H Urine Hyaline Casts Few /lpf (0 - 2) Urine Glucose Normal mg/dL (Normal) Microbiology Microbiology Date/Time Source Procedure Growth Status 04/21/24 09:56 Urine - [place] Urine Culture - Preliminary Resulted Labs and/or images reviewed: Labs reviewed by me Assessment/Plan Assessment/Plan Metabolic encephalopathy, UTI - Chronic, complicated, Diabetes Mellitus type 2 Dementia, Continuing current management. Continuing with IV antibiotic and IV hydration. Waiting for culture. Continuing with sliding scale insulin. Continuing with home med. This medical document was created using an electronic medical record system with [employer] direct computerized dictation system. Although this document has been carefully reviewed, there may still be some phonetic and typographical errors. These areas are purely typographical due to imperfections of the software programs, and do not reflect any compromise in the patient's medical care. Plan discussed with: Other (Rn) Date of Service: Apr 22, 2024 Billing Provider: JAYLAN FERMIN MD Common Visit Codes: [id number] INP/OBS CARE(HIGH) JAYLAN FERMIN MD Apr 22, 2024 11:44
[2024-04-23] VITALS (8 sets, daily range): BP systolic 84–134; BP diastolic 44–67; PULSE 56–72; RESP 16–18; TEMP 97.5–98; O2SAT 91–97
[2024-04-23] MEDS: DOCUSATE SOD 100 MG CAP PO PRN (17:36)
--- NOTE | 2024-04-23 20:21 | DVHPN2 ---
Subjective in bed still confused Reviewed: Care Plan, H&P, Labs, Medications, Previous Orders, Radiology Changes from previous H/P or p: No Changes Eyes: No Pain, No Vision change, No Conjunctivae inflammation, No Eyelid inflammation, No Other, No Redness ENT: No Ear pain, No Ear discharge, No Nose pain, No Nose discharge, No Nose congestion; Mouth pain; No Mouth swelling, No Throat pain, No Throat swelling, No Other Cardiovascular: No Chest Pain, No Palpitations, No Orthopnea, No Paroxysmal Noc. Dyspnea, No Edema, No Lt Headedness, No Other Respiratory: No Cough, No Dry, No Shortness of breath, No SOB with excertion, No Wheezing, No Hemoptysis, No Pleuritic Pain, No Sputum, No Other Gastrointestinal: No Nausea, No Vomiting, No Abdominal Pain, No Diarrhea, No Constipation, No Melena, No Hematochezia, No Other Genitourinary: No Dysuria, No Frequency, No Incontinence, No Hematuria, No Retention, No Other Musculoskeletal: No other, No neck pain, No shoulder pain, No arm pain, No back pain, No hand pain, No leg pain, No foot pain Skin: No Rash, No Lesions, No Jaundice, No Bruising, No Other Objective Vitals Vital Signs Date Time Temp Pulse Resp B/P (MAP) Pulse Ox O2 Delivery O2 Flow Rate FiO2 04/23/24 20:00 17 96 Room Air* 0 21 04/23/24 16:37 97.6 59 84/49 (61) 97.6 Intake/Output Intake and Output 04/23/24 05:00 Intake Total 1250 ml Output Total 1450 ml Balance -200 ml Intake Oral 1200 ml IV Total 50 ml Output Urine Total 1450 ml General Appearance: Alert, No acute distress HEENT: Atraumatic, PERRLA, EOMI, Mucous membr. moist/pink Neck: Supple Lungs: Clear to auscultation Cardiovascular: Regular rate, Normal S1, Normal S2, No murmurs, Gallops, Rubs Abdomen: Normal bowel sounds, Soft, No tenderness Neuro: Cranial nerves 3-12 NL Psych/Mental Status: Mental status NL Medications Current Medications Medications Dose Ordered Sig/Angelique Route Start Time Stop Time Status Last Admin Dose Admin Sodium Chloride 10 ml Q8HR IV 04/21/24 14:00 04/23/24 14:15 10 ML Acetaminophen/ Hydrocodone Bitart 1 tab Q4HP PRN PO 04/21/24 08:15 Ondansetron HCl 4 mg Q4HP PRN IV 04/21/24 08:15 Docusate Sodium 100 mg BIDPRN PRN PO 04/21/24 08:15 04/23/24 17:36 100 MG Acetaminophen 650 mg Q6HP PRN PO 04/21/24 08:15 Nitroglycerin 0.4 mg Q5MINP PRN SL 04/21/24 08:15 Morphine Sulfate 2 mg Q30M PRN IV 04/21/24 08:15 Diagnostic Test (Pha) 1 strip ACHS 04/21/24 11:30 04/23/24 17:37 1 STRIP Insulin Human Regular HS SC 04/21/24 22:00 04/22/24 21:52 3 UNITS Insulin Human Regular AC SC 04/21/24 11:30 04/23/24 17:37 3 UNITS Dextrose 50 ml UD PRN IV 04/21/24 08:15 Ceftriaxone Sodium 50 ml @ 100 mls/hr DAILY@09 IV 04/22/24 09:00 04/23/24 09:11 100 MLS/HR Finasteride 5 mg QAM PO 04/22/24 07:00 04/23/24 05:39 5 MG Tamsulosin HCl 0.4 mg DAILY PO 04/22/24 10:00 04/23/24 09:11 0.4 MG Amiodarone HCl 100 mg DAILY PO 04/22/24 10:00 04/23/24 09:11 100 MG Insulin Glargine 35 units QAM SC 04/22/24 07:00 04/22/24 06:31 35 UNITS Laboratory Results Laboratory Tests 04/22/24 05:14 Urinalysis Test 04/21/24 09:56 Urine Color Colorless (Yellow) Urine Clarity Turbid (Clear) H Urine pH 7.0 (5.0-9.0) Urine Specific [place] 1.010 (1.001-1.035) Urine Protein Negative (Negative) Urine Ketones Negative (Negative) Urine Blood 1+ /uL (Negative) H Urine Nitrite Negative (Negative) Urine Bilirubin Negative (Negative) Urine Urobilinogen Normal mg/dL (Negative) Urine Leukocyte Esterase 3+ /uL (Negative) Urine RBC 9 /hpf (0 - 3) Urine WBC Clumps Present /hpf (None Seen) Urine Microscopic WBC 445 /HPF (0-3) H Urine Squamous Epithelial Cells Few /hpf (<5) Urine Bacteria Few /hpf (None Seen) H Urine Hyaline Casts Few /lpf (0 - 2) Urine Glucose Normal mg/dL (Normal) Microbiology Microbiology Date/Time Source Procedure Growth Status 04/21/24 09:56 Urine - [place] Urine Culture - Preliminary Resulted Assessment/Plan Assessment/Plan Metabolic encephalopathy, UTI - Chronic, complicated, Diabetes Mellitus type 2 Dementia, Continuing current management. Continuing with IV antibiotic and IV hydration. Waiting for culture. Continuing with sliding scale insulin. Continuing with home med. Plan discussed with: Other (nurse) Date of Service: Apr 23, 2024 Billing Provider: LAURA WANG MD Common Visit Codes: [id number] INP/OBS CARE(HIGH) LAURA WANG MD Apr 23, 2024 20:21
[2024-04-24] VITALS (8 sets, daily range): BP systolic 98–111; BP diastolic 53–63; PULSE 55–68; RESP 16–18; TEMP 97.5–98.1; O2SAT 95–98
[2024-04-24] MEDS ORDERED: LACT10SO3 PO (04:18)
--- NOTE | 2024-04-24 19:06 | DVHPN2 ---
Subjective in bed still confused Reviewed: Care Plan, H&P, Labs, Medications, Previous Orders, Radiology Changes from previous H/P or p: No Changes Eyes: No Pain, No Vision change, No Conjunctivae inflammation, No Eyelid inflammation, No Other, No Redness ENT: No Ear pain, No Ear discharge, No Nose pain, No Nose discharge, No Nose congestion; Mouth pain; No Mouth swelling, No Throat pain, No Throat swelling, No Other Cardiovascular: No Chest Pain, No Palpitations, No Orthopnea, No Paroxysmal Noc. Dyspnea, No Edema, No Lt Headedness, No Other Respiratory: No Cough, No Dry, No Shortness of breath, No SOB with excertion, No Wheezing, No Hemoptysis, No Pleuritic Pain, No Sputum, No Other Gastrointestinal: No Nausea, No Vomiting, No Abdominal Pain, No Diarrhea, No Constipation, No Melena, No Hematochezia, No Other Genitourinary: No Dysuria, No Frequency, No Incontinence, No Hematuria, No Retention, No Other Musculoskeletal: No other, No neck pain, No shoulder pain, No arm pain, No back pain, No hand pain, No leg pain, No foot pain Skin: No Rash, No Lesions, No Jaundice, No Bruising, No Other Objective Vitals Vital Signs Date Time Temp Pulse Resp B/P (MAP) Pulse Ox O2 Delivery O2 Flow Rate FiO2 04/24/24 16:34 98.1 68 17 105/53 (70) 95 98.1 04/24/24 08:00 Room Air* 0 21 Intake/Output Intake and Output 04/24/24 05:00 Intake Total 1330 ml Output Total 1250 ml Balance 80 ml Intake Oral 1280 ml IV Total 50 ml Output Urine Total 1250 ml General Appearance: Alert, No acute distress HEENT: Atraumatic, PERRLA, EOMI, Mucous membr. moist/pink Neck: Supple Lungs: Clear to auscultation Cardiovascular: Regular rate, Normal S1, Normal S2, No murmurs, Gallops, Rubs Abdomen: Normal bowel sounds, Soft, No tenderness Neuro: Cranial nerves 3-12 NL Psych/Mental Status: Mental status NL Medications Current Medications Medications Dose Ordered Sig/Angelique Route Start Time Stop Time Status Last Admin Dose Admin Sodium Chloride 10 ml Q8HR IV 04/21/24 14:00 04/24/24 16:37 10 ML Acetaminophen/ Hydrocodone Bitart 1 tab Q4HP PRN PO 04/21/24 08:15 Ondansetron HCl 4 mg Q4HP PRN IV 04/21/24 08:15 Docusate Sodium 100 mg BIDPRN PRN PO 04/21/24 08:15 04/23/24 17:36 100 MG Acetaminophen 650 mg Q6HP PRN PO 04/21/24 08:15 Nitroglycerin 0.4 mg Q5MINP PRN SL 04/21/24 08:15 Morphine Sulfate 2 mg Q30M PRN IV 04/21/24 08:15 Diagnostic Test (Pha) 1 strip ACHS 04/21/24 11:30 04/24/24 16:36 1 STRIP Insulin Human Regular HS SC 04/21/24 22:00 04/23/24 21:09 2 UNITS Insulin Human Regular AC SC 04/21/24 11:30 04/24/24 16:45 12 UNITS Dextrose 50 ml UD PRN IV 04/21/24 08:15 Ceftriaxone Sodium 50 ml @ 100 mls/hr DAILY@09 IV 04/22/24 09:00 04/24/24 09:37 100 MLS/HR Finasteride 5 mg QAM PO 04/22/24 07:00 04/24/24 05:14 5 MG Tamsulosin HCl 0.4 mg DAILY PO 04/22/24 10:00 04/24/24 09:36 0.4 MG Amiodarone HCl 100 mg DAILY PO 04/22/24 10:00 04/24/24 09:37 100 MG Insulin Glargine 35 units QAM SC 04/22/24 07:00 04/22/24 06:31 35 UNITS Laboratory Results Laboratory Tests 04/22/24 05:14 Urinalysis Test 04/21/24 09:56 Urine Color Colorless (Yellow) Urine Clarity Turbid (Clear) H Urine pH 7.0 (5.0-9.0) Urine Specific [place] 1.010 (1.001-1.035) Urine Protein Negative (Negative) Urine Ketones Negative (Negative) Urine Blood 1+ /uL (Negative) H Urine Nitrite Negative (Negative) Urine Bilirubin Negative (Negative) Urine Urobilinogen Normal mg/dL (Negative) Urine Leukocyte Esterase 3+ /uL (Negative) Urine RBC 9 /hpf (0 - 3) Urine WBC Clumps Present /hpf (None Seen) Urine Microscopic WBC 445 /HPF (0-3) H Urine Squamous Epithelial Cells Few /hpf (<5) Urine Bacteria Few /hpf (None Seen) H Urine Hyaline Casts Few /lpf (0 - 2) Urine Glucose Normal mg/dL (Normal) Microbiology Microbiology Date/Time Source Procedure Growth Status 04/21/24 09:56 Urine - [place] Urine Culture - Preliminary Resulted Assessment/Plan Assessment/Plan Metabolic encephalopathy, UTI - Chronic, complicated, Diabetes Mellitus type 2 Dementia, Continuing current management. Continuing with IV antibiotic and IV hydration. Waiting for culture. Continuing with sliding scale insulin. Continuing with home med. Plan discussed with: Patient Date of Service: Apr 24, 2024 Billing Provider: LAURA WANG MD Common Visit Codes: [id number] INP/OBS CARE(HIGH) LAURA WANG MD Apr 24, 2024 19:06
[2024-04-25] VITALS (8 sets, daily range): BP systolic 100–110; BP diastolic 54–66; PULSE 62–78; RESP 16–19; TEMP 97.9–98.1; O2SAT 93–97
[2024-04-25] MEDS ORDERED: Glucerna Carbsteady SHAKE Vanilla 8oz PO SCH (10:00)
[2024-04-25 12:11] LABS: Basophils # (auto) 0 10 ^3/uL (0-0.2); Basophils % (auto) 0.7 % (0.0-2.0); Eosinophils # (auto) 0.1 10 ^3/uL (0-0.8); Eosinophils % (auto) 1.9 % (0.0-7.0); Hematocrit 37.7 % (41.0-53.0); Hemoglobin 12.7 g/dL (13.5-17.5); Lymphocytes # (auto) 0.8 10 ^3/uL (0.4-5.4); Lymphocytes % (auto) 14.8 % (10.0-50.0); Mean Corpuscular Hemoglobin 30.7 pg (28.0-32.0); Mean Corpuscular Hgb Conc. 33.8 g/dL (32.0-36.0); Monocytes # (auto) 0.7 10 ^3/uL (0-1.3); Monocytes % (auto) 13.1 % (0.0-12.0); Neutrophils # (auto) 3.5 10 ^3/uL (1.6-8.6); Neutrophils % (auto) 69.5 % (37.0-80.0); Nucleated Red Blood Cells % 0.1 %; Platelet Count (auto) 114 10^3/uL (140-450); Red Blood Cells 4.14 10^6/uL (4.5-5.90); Red Cell Distribution Width 14.6 % (11.8-14.3); White Blood Cell 5.1 10^3/uL (4.4-10.8)
[2024-04-25 12:18] LABS: Potassium 4.9 mmol/L (3.5-5.1)
[2024-04-25 12:19] LABS: Anion Gap 9 (5-15); Carbon Dioxide 21 mmol/L (20-31)
[2024-04-25 12:21] LABS: Chloride 97 mmol/L (98-107); Sodium 127 mmol/L (136-145)
[2024-04-25 12:24] LABS: BUN/Creatinine Ratio 21.3 (10.0-20.0); Blood Urea Nitrogen 19 mg/dL (9-23)
[2024-04-25 12:27] LABS: Glucose 404 mg/dL (74-106)
[2024-04-25] MEDS ORDERED: DEXTROSE (50%) 50ML SYRG IV PRN ×2 (14:45→16:00)
[2024-04-25] MEDS ORDERED: InsuLIN REG 1unit/0.01ml Soln (100units/ml) SC SCH ×2 (17:00→22:00)
[2024-04-25] MEDS ORDERED: ACCU-CHEK COMFORT CURVE STRIP VI SCH (17:00)
[2024-04-25] MEDS: ACCU-CHEK COMFORT CURVE STRIP VI SCH (17:02)
[2024-04-25] MEDS: InsuLIN REG 1unit/0.01ml Soln (100units/ml) SC SCH ×2 (17:11→22:00)
--- NOTE | 2024-04-25 19:27 | DVHPN2 ---
Subjective in bed still confused Reviewed: Care Plan, H&P, Labs, Medications, Previous Orders, Radiology Changes from previous H/P or p: No Changes Eyes: No Pain, No Vision change, No Conjunctivae inflammation, No Eyelid inflammation, No Other, No Redness ENT: No Ear pain, No Ear discharge, No Nose pain, No Nose discharge, No Nose congestion; Mouth pain; No Mouth swelling, No Throat pain, No Throat swelling, No Other Cardiovascular: No Chest Pain, No Palpitations, No Orthopnea, No Paroxysmal Noc. Dyspnea, No Edema, No Lt Headedness, No Other Respiratory: No Cough, No Dry, No Shortness of breath, No SOB with excertion, No Wheezing, No Hemoptysis, No Pleuritic Pain, No Sputum, No Other Gastrointestinal: No Nausea, No Vomiting, No Abdominal Pain, No Diarrhea, No Constipation, No Melena, No Hematochezia, No Other Genitourinary: No Dysuria, No Frequency, No Incontinence, No Hematuria, No Retention, No Other Musculoskeletal: No other, No neck pain, No shoulder pain, No arm pain, No back pain, No hand pain, No leg pain, No foot pain Skin: No Rash, No Lesions, No Jaundice, No Bruising, No Other Objective Vitals Vital Signs Date Time Temp Pulse Resp B/P (MAP) Pulse Ox O2 Delivery O2 Flow Rate FiO2 04/25/24 16:51 97.9 75 17 100/57 (71) 95 97.9 04/25/24 08:00 Room Air* 0 21 Intake/Output Intake and Output 04/25/24 05:00 Intake Total 1410 ml Output Total 1650 ml Balance -240 ml Intake Oral 1360 ml IV Total 50 ml Output Urine Total 1650 ml # Bowel Movements 2 General Appearance: Alert, No acute distress HEENT: Atraumatic, PERRLA, EOMI, Mucous membr. moist/pink Neck: Supple Lungs: Clear to auscultation Cardiovascular: Regular rate, Normal S1, Normal S2, No murmurs, Gallops, Rubs Abdomen: Normal bowel sounds, Soft, No tenderness Neuro: Cranial nerves 3-12 NL Psych/Mental Status: Mental status NL Medications Current Medications Medications Dose Ordered Sig/Angelique Route Start Time Stop Time Status Last Admin Dose Admin Sodium Chloride 10 ml Q8HR IV 04/21/24 14:00 04/25/24 14:32 10 ML Acetaminophen/ Hydrocodone Bitart 1 tab Q4HP PRN PO 04/21/24 08:15 Ondansetron HCl 4 mg Q4HP PRN IV 04/21/24 08:15 Docusate Sodium 100 mg BIDPRN PRN PO 04/21/24 08:15 04/23/24 17:36 100 MG Acetaminophen 650 mg Q6HP PRN PO 04/21/24 08:15 Nitroglycerin 0.4 mg Q5MINP PRN SL 04/21/24 08:15 Morphine Sulfate 2 mg Q30M PRN IV 04/21/24 08:15 Ceftriaxone Sodium 50 ml @ 100 mls/hr DAILY@09 IV 04/22/24 09:00 04/25/24 09:34 100 MLS/HR Finasteride 5 mg QAM PO 04/22/24 07:00 04/25/24 04:56 5 MG Tamsulosin HCl 0.4 mg DAILY PO 04/22/24 10:00 04/25/24 09:33 0.4 MG Amiodarone HCl 100 mg DAILY PO 04/22/24 10:00 04/25/24 09:34 100 MG Insulin Glargine 35 units QAM SC 04/22/24 07:00 04/22/24 06:31 35 UNITS Enteral Nutritional Formula 240 ml BIDLS PO 04/25/24 10:00 Diagnostic Test (Pha) 1 strip ACHS 04/25/24 17:00 04/25/24 17:02 1 STRIP Insulin Human Regular AC SC 04/25/24 17:00 04/25/24 17:11 20 UNITS Insulin Human Regular HS SC 04/25/24 22:00 Dextrose 50 ml UD PRN IV 04/25/24 16:00 Laboratory Results Laboratory Tests 04/25/24 11:58 Chemistry Test 04/25/24 11:58 Calcium Level 9.0 mg/dL (8.7-10.4) Urinalysis Test 04/21/24 09:56 Urine Color Colorless (Yellow) Urine Clarity Turbid (Clear) H Urine pH 7.0 (5.0-9.0) Urine Specific [place] 1.010 (1.001-1.035) Urine Protein Negative (Negative) Urine Ketones Negative (Negative) Urine Blood 1+ /uL (Negative) H Urine Nitrite Negative (Negative) Urine Bilirubin Negative (Negative) Urine Urobilinogen Normal mg/dL (Negative) Urine Leukocyte Esterase 3+ /uL (Negative) Urine RBC 9 /hpf (0 - 3) Urine WBC Clumps Present /hpf (None Seen) Urine Microscopic WBC 445 /HPF (0-3) H Urine Squamous Epithelial Cells Few /hpf (<5) Urine Bacteria Few /hpf (None Seen) H Urine Hyaline Casts Few /lpf (0 - 2) Urine Glucose Normal mg/dL (Normal) Microbiology Microbiology Date/Time Source Procedure Growth Status 04/21/24 09:56 Urine - [place] Urine Culture - Final Complete Assessment/Plan Assessment/Plan Metabolic encephalopathy, UTI - Chronic, complicated, Diabetes Mellitus type 2 Dementia, Continuing current management. Continuing with IV antibiotic and IV hydration. Waiting for culture. Continuing with sliding scale insulin. Continuing with home med. Plan discussed with: Patient, Other (nurse) My Orders Orders - LAURA WANG MD Procedure Category Date Status Time Notify Provider NOTICE 04/25/24 Transmitted Malnutrition 09:53 Nutritional PHA 04/25/24 In Process Supplements (Glucerna 10:00 Ac Aggressive Insulin BIANCA 04/25/24 In Process Scale (N 14:35 Glucose Blood PHA 04/25/24 In Process (Accu-Chek Comfort 17:00 Insulin R (Human) PHA 04/25/24 In Process (Insulin R) 17:00 Insulin R (Human) PHA 04/25/24 In Process (Insulin R) 22:00 Dextrose 50% Syringe PHA 04/25/24 In Process 16:00 Date of Service: Apr 25, 2024 Billing Provider: LAURA WANG MD Common Visit Codes: [id number] INP/OBS CARE(HIGH) LAURA WANG MD Apr 25, 2024 19:27
[2024-04-26] VITALS (8 sets, daily range): BP systolic 93–118; BP diastolic 55–68; PULSE 62–83; RESP 16–19; TEMP 97.4–98.7; O2SAT 92–96
[2024-04-26] MEDS ORDERED: CIPR-273 PO (10:25)
--- NOTE | 2024-04-26 10:33 | DVHDS2 ---
Discharge Summary Date of Admission Apr 21, 2024 at 08:11 Date of Discharge: Apr 26, 2024 Labs/Diagnostic Data: Laboratory Results Test 04/26/24 05:10 04/25/24 11:58 04/22/24 05:14 04/21/24 09:56 POC Glucose 214 mg/dl (70-106) White Blood Count 5.1 10^3/uL (4.4-10.8) Red Blood Count 4.14 10^6/uL (4.5-5.90) Hemoglobin 12.7 g/dL (13.5-17.5) Hematocrit 37.7 % (41.0-53.0) Mean Corpuscular Volume 91.0 fL (80.0-100.0) Mean Corpuscular Hemoglobin 30.7 pg (28.0-32.0) Mean Corpuscular Hemoglobin Concent 33.8 g/dL (32.0-36.0) Red Cell Distribution Width 14.6 % (11.8-14.3) Platelet Count 114 10^3/uL (140-450) Mean Platelet Volume 7.4 fL (6.9-10.8) Neutrophils (%) (Auto) 69.5 % (37.0-80.0) Lymphocytes (%) (Auto) 14.8 % (10.0-50.0) Monocytes (%) (Auto) 13.1 % (0.0-12.0) Eosinophils (%) (Auto) 1.9 % (0.0-7.0) Basophils (%) (Auto) 0.7 % (0.0-2.0) Neutrophils # (Auto) 3.5 10 ^3/uL (1.6-8.6) Lymphocytes # (Auto) 0.8 10 ^3/uL (0.4-5.4) Monocytes # (Auto) 0.7 10 ^3/uL (0-1.3) Eosinophils # (Auto) 0.1 10 ^3/uL (0-0.8) Basophils # (Auto) 0 10 ^3/uL (0-0.2) Nucleated Red Blood Cells 0.1 % Sodium Level 127 mmol/L (136-145) Potassium Level 4.9 mmol/L (3.5-5.1) Chloride Level 97 mmol/L (98-107) Carbon Dioxide Level 21 mmol/L (20-31) Anion Gap 9 (5-15) Blood Urea Nitrogen 19 mg/dL (9-23) Creatinine 0.89 mg/dL (0.700-1.30) Glomerular Filtration Rate Calc 89 mL/min (>90) BUN/Creatinine Ratio 21.3 (10.0-20.0) Serum Glucose 404 mg/dL (74-106) Calcium Level 9.0 mg/dL (8.7-10.4) Hemoglobin A1c 6.1 % A1C (<5.7) Total Bilirubin 0.9 mg/dL (0.2-1.0) Aspartate Amino Transferase (AST) 56 U/L (13-40) Alanine Aminotransferase (ALT) 52 U/L (7-40) Alkaline Phosphatase 209 U/L (46-116) Total Protein 6.1 g/dL (5.7-8.2) Albumin 3.6 g/dL (3.2-4.8) Urine Color Colorless (Yellow) Urine Clarity Turbid (Clear) Urine pH 7.0 (5.0-9.0) Urine Specific [place] 1.010 (1.001-1.035) Urine Protein Negative (Negative) Urine Ketones Negative (Negative) Urine Blood 1+ /uL (Negative) Urine Nitrite Negative (Negative) Urine Bilirubin Negative (Negative) Urine Urobilinogen Normal mg/dL (Negative) Urine Leukocyte Esterase 3+ /uL (Negative) Urine RBC 9 /hpf (0 - 3) Urine WBC Clumps Present /hpf (None Seen) Urine Microscopic WBC 445 /HPF (0-3) Urine Squamous Epithelial Cells Few /hpf (<5) Urine Bacteria Few /hpf (None Seen) Urine Hyaline Casts Few /lpf (0 - 2) Urine Glucose Normal mg/dL (Normal) Urine Opiates Screen Neg (NEGATIVE) Urine Fentanyl Screen Neg (NEGATIVE) Urine Barbiturates Screen Neg (NEGATIVE) Urine Phencyclidine Screen Neg (NEGATIVE) Urine Amphetamines Screen Neg (NEGATIVE) Urine Benzodiazepines Screen Neg (NEGATIVE) Urine Cocaine Screen Neg (NEGATIVE) Urine Cannabinoids Screen Neg (NEGATIVE) Test 04/20/24 23:05 04/20/24 22:19 Troponin I High Sensitivity 3 ng/L (</=54) Prothrombin Time 11.5 sec (9.3-11.8) Prothrombin Time INR 1.09 (0.9-1.15) Activated Partial Thromboplast Time 25.8 SEC (24.5-34.5) Plasma/Serum Blood Alcohol < 3.0 mg/dL (<10) Other Laboratory Tests 04/25/24 11:58 Brief Hx & Hospital Course: Final diagnoses: UTI Metabolic encephalopathy DM Afib Dementia Weakness Bed bound Moderate protein malnutrition h/o pancreatic cancer diagnosed at [facility] 15 years ago Liver cirrhosis He was given IV antibiotics Urine culture was negative He improved He is more alert His blood glucose was high, better now He is bed bound at home, he was on hospice on and off Discussed with his over the phone, she is interested in hospice again at home He can be discharged home on hospice with cipro x 5 days Condition at Discharge: Poor Final Diagnosis/Problems List UTI Metabolic encephalopathy DM Afib Dementia Weakness Bed bound Discharge Disposition: Hospice - Home SNF Discharge Will this Physician continue t: No Discharge Instruct/Medications Diet: Regular Activity: No Restrictions, As Tolerated Follow Up/Referral: Hospice at home Medications: Same home meds Add cipro 250 bid x 5 days Discharge Statement: "Patient was advised to return to the ER or call 911 if any headaches, dizziness, shortness of breath, chest pain, abdominal pain, bleeding, fevers, or worsening of medical condition. Patient was counseled about treatment plan, medications, possible side effects, patientverbalized understanding. All questions were answered to the best of my ability. This discharge took greater then 30 minutes in planning, reviewing documentation, counseling the patient, and discussing with other team members." ASSESSMENT ASSESSMENT Assessment UTI Metabolic encephalopathy DM Afib Dementia Weakness Bed bound Date of Service: Apr 26, 2024 Billing Provider: BINDU KC MD Common Visit Codes: [id number] DISCH DAY >30min BINDU KC MD Apr 26, 2024 10:33
[2024-04-27] VITALS (7 sets, daily range): BP systolic 91–109; BP diastolic 57–79; PULSE 63–83; RESP 14–18; TEMP 36.7; O2SAT 94–97
[2024-04-27] MEDS: guaiFENesin-DM 100/10mg/5ml SYR PO PRN (05:51)
--- NOTE | 2024-04-27 09:36 | DVHPN2 ---
Subjective Doing well No new complaints He was supposed to go home on hospice yesterday but he initially refused but then his talked to him and convinced him to accept it and therefore he would like to go home on hospice today Reviewed: Care Plan, H&P, Labs, Medications, Previous Orders, Radiology Changes from previous H/P or p: Changes Eyes: No Pain, No Vision change, No Conjunctivae inflammation, No Eyelid inflammation, No Other, No Redness ENT: No Ear pain, No Ear discharge, No Nose pain, No Nose discharge, No Nose congestion; Mouth pain; No Mouth swelling, No Throat pain, No Throat swelling, No Other Cardiovascular: No Chest Pain, No Palpitations, No Orthopnea, No Paroxysmal Noc. Dyspnea, No Edema, No Lt Headedness, No Other Respiratory: No Cough, No Dry, No Shortness of breath, No SOB with excertion, No Wheezing, No Hemoptysis, No Pleuritic Pain, No Sputum, No Other Gastrointestinal: No Nausea, No Vomiting, No Abdominal Pain, No Diarrhea, No Constipation, No Melena, No Hematochezia, No Other Genitourinary: No Dysuria, No Frequency, No Incontinence, No Hematuria, No Retention, No Other Musculoskeletal: No other, No neck pain, No shoulder pain, No arm pain, No back pain, No hand pain, No leg pain, No foot pain Skin: No Rash, No Lesions, No Jaundice, No Bruising, No Other Objective Vitals Vital Signs Date Time Temp Pulse Resp B/P (MAP) Pulse Ox O2 Delivery O2 Flow Rate FiO2 04/27/24 08:59 98.2 71 14 106/61 (76) 94 98.2 04/26/24 20:00 Nasal Cannula* 2 28 Intake/Output Intake and Output 04/27/24 07:00 Intake Total 1250 ml Output Total 1470 ml Balance -220 ml Intake Oral 1200 ml IV Total 50 ml Output Urine Total 1470 ml General Appearance: Alert, No acute distress HEENT: Atraumatic, PERRLA, EOMI, Mucous membr. moist/pink Neck: Supple Lungs: Clear to auscultation Cardiovascular: Regular rate, Normal S1, Normal S2, No murmurs, Gallops, Rubs Abdomen: Normal bowel sounds, Soft, No tenderness Neuro: Cranial nerves 3-12 NL Psych/Mental Status: Mental status NL Medications Current Medications Medications Dose Ordered Sig/Angelique Route Start Time Stop Time Status Last Admin Dose Admin Sodium Chloride 10 ml Q8HR IV 04/21/24 14:00 04/27/24 06:00 10 ML Acetaminophen/ Hydrocodone Bitart 1 tab Q4HP PRN PO 04/21/24 08:15 Ondansetron HCl 4 mg Q4HP PRN IV 04/21/24 08:15 Docusate Sodium 100 mg BIDPRN PRN PO 04/21/24 08:15 04/27/24 08:29 100 MG Acetaminophen 650 mg Q6HP PRN PO 04/21/24 08:15 Nitroglycerin 0.4 mg Q5MINP PRN SL 04/21/24 08:15 Morphine Sulfate 2 mg Q30M PRN IV 04/21/24 08:15 Ceftriaxone Sodium 50 ml @ 100 mls/hr DAILY@09 IV 04/22/24 09:00 04/27/24 08:30 100 MLS/HR Finasteride 5 mg QAM PO 04/22/24 07:00 04/26/24 05:55 5 MG Tamsulosin HCl 0.4 mg DAILY PO 04/22/24 10:00 04/27/24 08:29 0.4 MG Amiodarone HCl 100 mg DAILY PO 04/22/24 10:00 04/27/24 08:30 100 MG Insulin Glargine 35 units QAM SC 04/22/24 07:00 04/26/24 06:07 35 UNITS Enteral Nutritional Formula 240 ml BIDLS PO 04/25/24 10:00 Diagnostic Test (Pha) 1 strip ACHS 04/25/24 17:00 04/27/24 06:47 1 STRIP Insulin Human Regular AC SC 04/25/24 17:00 04/26/24 17:28 4 UNITS Insulin Human Regular HS SC 04/25/24 22:00 04/26/24 22:51 8 UNITS Dextrose 50 ml UD PRN IV 04/25/24 16:00 Guaifenesin/ Dextromethorphan 10 ml Q4HP PRN PO 04/27/24 04:15 04/27/24 05:51 10 ML Laboratory Results Laboratory Tests 04/25/24 11:58 Urinalysis Test 04/21/24 09:56 Urine Color Colorless (Yellow) Urine Clarity Turbid (Clear) H Urine pH 7.0 (5.0-9.0) Urine Specific [place] 1.010 (1.001-1.035) Urine Protein Negative (Negative) Urine Ketones Negative (Negative) Urine Blood 1+ /uL (Negative) H Urine Nitrite Negative (Negative) Urine Bilirubin Negative (Negative) Urine Urobilinogen Normal mg/dL (Negative) Urine Leukocyte Esterase 3+ /uL (Negative) Urine RBC 9 /hpf (0 - 3) Urine WBC Clumps Present /hpf (None Seen) Urine Microscopic WBC 445 /HPF (0-3) H Urine Squamous Epithelial Cells Few /hpf (<5) Urine Bacteria Few /hpf (None Seen) H Urine Hyaline Casts Few /lpf (0 - 2) Urine Glucose Normal mg/dL (Normal) Microbiology Microbiology Date/Time Source Procedure Growth Status 04/21/24 09:56 Urine - [place] Urine Culture - Final Complete Assessment/Plan Assessment/Plan Metabolic encephalopathy due to UTI UTI History of pancreatic cancer Liver cirrhosis DM Afib Dementia Weakness Bed bound Moderate protein malnutrition Plan: Discussed the treatment options with the patient and with his over the phone Patient has been on hospice previously because of pancreatic cancer and liver cirrhosis and debility He is underweight He has cachexia He has protein malnutrition He has generalized weakness and he is mostly bed-bound except when the family gets him out of bed to a chair otherwise he is nonambulatory The patient is agreeable to go on hospice today and therefore he will be discharged today once this is arranged Plan discussed with: Patient, Spouse My Orders Orders - BINDU KC MD Procedure Category Date Status Time Pt Request For Service PT 04/26/24 Logged 10:12 * 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
== END 2024-04-27 18:10 | disposition hospice, home (50) | DRG 689 ==
LOC: EDBD 21:36 → ER 21:36 → TELE 04-21 08:11 → TELE-EAST 04-21 18:56 → TELE-CENTR 04-24 22:02 → OVERFLOW 04-27 14:48 → CENTRAL 04-27 14:52
PROVIDERS: ADMIT Internal Medicine Geriatric Medicine; ATTEND Internal Medicine Geriatric Medicine
DX: N39.0 Urinary tract infection, site not specified (principal); G93.41 Metabolic encephalopathy; D61.818 Other pancytopenia; F05 Delirium due to known physiological condition; E44.0 Moderate protein-calorie malnutrition; Z68.1 Body mass index [BMI] 19.9 or less, adult; C25.9 Malignant neoplasm of pancreas, unspecified; Z51.5 Encounter for palliative care; F03.90 Unspecified dementia, unspecified severity, without behavioral disturbance, psychotic disturbance, mood disturbance, and anxiety; E11.9 Type 2 diabetes mellitus without complications; I48.91 Unspecified atrial fibrillation; K74.60 Unspecified cirrhosis of liver; I10 Essential (primary) hypertension; C50.929 Malignant neoplasm of unspecified site of unspecified male breast; Z74.01 Bed confinement status; Z87.442 Personal history of urinary calculi; Z79.4 Long term (current) use of insulin; Z79.899 Other long term (current) drug therapy
CPT/HCPCS: 36415; 70450; 71045; 80048; 80053; 80307; 80320; 81001; 82962; 83036; 84484; 85025; 85610; 85730; 87086; 92610; 93005; 96365; 96375; 99291; G0378; J1815